=== PATIENT | female | born 1945 | race Caucasian/White ===

== ENCOUNTER 2019-03-31 06:00 | Outpatient (CLI) | payer MEDICARE, MEDICAID, SELFPAY ==
[2019-03-31 16:47] LABS: INR 2.18 (0.8-1.2)
== END 2019-03-31 06:01 | disposition home or self-care (01) ==
LOC: LAB 15:47
PROVIDERS: Family Provider Family Medicine; PCP Family Medicine; Visit Provider Family Medicine
DX: I48.91 Unspecified atrial fibrillation (principal)
CPT/HCPCS: 85610

== ENCOUNTER 2019-04-07 12:37 | Outpatient (CLI) | payer MEDICARE, MEDICAID, SELFPAY ==
[2019-04-07 13:02] LABS: INR 3.89 (0.8-1.2)
== END 2019-04-07 12:38 | disposition home or self-care (01) ==
LOC: LAB 12:39
PROVIDERS: Family Provider Family Medicine; PCP Family Medicine; Visit Provider Family Medicine
DX: I48.91 Unspecified atrial fibrillation (principal)
CPT/HCPCS: 85610

== ENCOUNTER 2019-04-22 06:00 | Outpatient (CLI) | payer MEDICARE, MEDICAID, SELFPAY ==
[2019-04-22 16:18] LABS: INR 2.49 (0.8-1.2)
== END 2019-04-22 06:01 | disposition home or self-care (01) ==
LOC: LAB 15:34
PROVIDERS: Family Provider Family Medicine; PCP Family Medicine; Visit Provider Family Medicine
DX: I48.91 Unspecified atrial fibrillation (principal)
CPT/HCPCS: 85610

== ENCOUNTER 2019-05-06 13:54 | Outpatient (CLI) | payer MEDICARE, SELFPAY ==
[2019-05-06 14:33] LABS: INR 1.85 (0.8-1.2)
== END 2019-05-06 13:55 | disposition home or self-care (01) ==
LOC: LAB 13:57
PROVIDERS: Family Provider Family Medicine; PCP Family Medicine; Visit Provider Family Medicine
DX: E03.9 Hypothyroidism, unspecified (principal); Z79.01 Long term (current) use of anticoagulants
CPT/HCPCS: 85610

== ENCOUNTER 2019-05-18 06:00 | Outpatient (CLI) | payer MEDICARE, SELFPAY ==
[2019-05-18 15:12] LABS: Alanine Aminotransferase 37 U/L (0-33); Albumin Level 3.9 g/dL (3.5-5.2); Alkaline Phosphatase 246 IU/L (35-105); Aspartate Amino Transferase 52 U/L (0-32); Globulin 3.8 g/dL (1.3-4.6); Thyroid Stimulating Hormone 4.03 uIU/mL (0.27-4.20); Total Bilirubin 0.5 mg/dL (0.15-1.2); Total Protein 7.7 g/dL (6.6-8.7)
[2019-05-18 19:22] LABS: Free T4 Free Thyroxine 1.84 ng/dL (0.82-1.77)
== END 2019-05-18 06:01 | disposition home or self-care (01) ==
LOC: LAB 14:05
PROVIDERS: Family Provider Family Medicine; PCP Family Medicine; Visit Provider Family Medicine
DX: I48.91 Unspecified atrial fibrillation (principal); E03.9 Hypothyroidism, unspecified; E78.5 Hyperlipidemia, unspecified; I27.20 Pulmonary hypertension, unspecified; Z95.2 Presence of prosthetic heart valve
CPT/HCPCS: 80076; 84439; 84443

== ENCOUNTER 2019-05-19 15:36 | Outpatient (REF) | payer MEDICARE, MEDICAID, SELFPAY ==
[2019-05-19 15:59] LABS: INR 2.35 (0.8-1.2)
[2019-05-19 16:39] LABS: Alanine Aminotransferase 39 U/L (0-33); Albumin Level 3.9 g/dL (3.5-5.2); Alkaline Phosphatase 250 IU/L (35-105); Aspartate Amino Transferase 48 U/L (0-32); Globulin 3.5 g/dL (1.3-4.6); Thyroid Stimulating Hormone 3.81 uIU/mL (0.27-4.20); Total Bilirubin 0.4 mg/dL (0.15-1.2); Total Protein 7.4 g/dL (6.6-8.7)
== END 2019-05-19 15:37 | disposition home or self-care (01) ==
LOC: LAB 15:36
PROVIDERS: Family Provider Family Medicine; PCP Family Medicine; Visit Provider Family Medicine
DX: I48.91 Unspecified atrial fibrillation (principal); D64.9 Anemia, unspecified; E11.9 Type 2 diabetes mellitus without complications; E03.9 Hypothyroidism, unspecified
CPT/HCPCS: 80076; 84443; 85610

== ENCOUNTER 2019-09-23 01:35 | Inpatient (IN) | payer MEDICARE, SELFPAY ==
[2019-09-23] VITALS (24 sets, daily range): BP systolic 110–166; BP diastolic 58–78; PULSE 58–82; RESP 16–20; TEMP 35.8–37.1; O2SAT 95–98; BMI 26.6
--- NOTE | 2019-09-23 01:41 | W.ED.GIBLEED ---
HPI - GI Bleed General: Chief complaint: GI Bleed Stated complaint: GI BLEED Time Seen by Provider: 09/23/19 01:36 Source: patient and EMS Mode of arrival: EMS Limitations: no limitations History of Present Illness: HPI Narrative: 74-year-old female presents here from [facility] with GI bleed. Patient was anemic over there and is on Coumadin currently. Patient had blood product started and has been normotensive. Patient come to ER for code screening. Patient's had no cough or fever. Denies any abdominal pain or vomiting. Associated symptoms: Denies chills, easy bruising, fever(s), headache(s) or rash Review of Systems Const: Denies: fever(s), chills, body aches or change in appetite Eyes: Denies: blurry vision or eye discomfort ENMT: Denies: throat pain or dental pain Card: Denies: chest pain Resp: Denies: dyspnea GI: Reports: hematochezia : Denies: dysuria Musc: Denies: neck pain or back pain Skin/Breast: Denies: rash Neuro: Denies: headache(s) Psych: Denies: depression Gallito/Lymph: Denies: easy bruising All/Imm: Denies: urticaria PFSH ED PFSH: Medical History (Updated 09/23/19 @ 01:58 by Iván Dougherty MD) Afib Chronic atrial fibrillation Congenital heart disease Diabetes GI bleed Moderate mitral regurgitation Moderate tricuspid regurgitation Pulmonary hypertension Type 2 diabetes mellitus Surgical History (Updated 09/23/19 @ 01:58 by Iván Dougherty MD) Hx of cataract surgery Hx of heart valve replacement with mechanical valve S/P atrial septal defect closure, surgical Family History Father Cancer Brother Cancer Grandmother CAD (coronary artery disease) Denies family history of Diabetes Clotting disorder Dementia Hyperlipidemia Psychiatric illness Chronic kidney disease (CKD) Suicide Anesthesia complication Bleeding disorder Family history of premature coronary artery disease Lung disease Hypertension Stroke Social History Smoking and tobacco status: former smoker Second hand smoke exposure: No Alcohol intake: never Physical Exam Const: COMMON NORMALS: no acute distress, patient oriented x3 and healthy appearing HENMT: COMMON NORMALS: normocephalic and atraumatic HEAD & SCALP: normocephalic and atraumatic Eye: COMMON NORMALS: Equal, round and reactive pupils present and EOMs intact bilaterally PUPIL: Yes Equal, round and reactive pupils present Neck/C-Spine: COMMON NORMALS: full ROM and supple Chest: COMMONS NORMALS: normal inspection of the chest and normal palpation of entire chest wall Resp: COMMON NORMALS: normal respiratory effort, No retractions, No use of accessory muscles and clear to auscultation bilaterally AUSCULTATION: clear to auscultation bilaterally Cardio: COMMON NORMALS: regular rate, regular rhythm and No murmurs present (Cardio) RATE: regular rate RHYTHM: regular rhythm GI: COMMON NORMALS: Normal to inspection, nondistended, normoactive bowel sounds present, Soft to palpation, non-tender and no masses PALPATION: Yes Soft to palpation Extremity: COMMON NORMALS: normal to inspection and full ROM Neuro: COMMON NORMALS: patient oriented x3, moves all extremities and no focal motor deficits Psych: COMMON NORMALS: mental status grossly normal, Normal thought process present and cooperative THOUGHT PROCESS: Normal thought process present Skin: COMMON NORMALS: no rashes or lesions noted and no wounds GENERAL SKIN EXAM: no rashes or lesions noted Course Vital Signs: Vital signs: Vital Signs Temperature 98.6 F 09/23/19 01:39 Pulse Rate 72 09/23/19 01:39 Respiratory Rate 16 09/23/19 01:39 Blood Pressure 146/58 09/23/19 01:39 Pulse Oximetry 96 09/23/19 01:39 MDM - GI Bleed MDM Narrative: Medical decision making narrative: Patient presents here with a GI bleed from [place]. Patient was given blood products there. Patient had a come by the ER for covid screening. Patient's had no fever or cough. Dr. Beltre is seeing patient in the ER and will admit. Discharge Plan Discharge Patient Disposition: Admitted As Inpatient Clinical Impression: GI bleed Qualifiers: GI bleed type/associated pathology: unspecified gastrointestinal hemorrhage type Qualified Code(s): K92.2 - Gastrointestinal hemorrhage, unspecified Condition: Stable Referrals: Cori Lane MD [Primary Care Provider] - Coding Level of Care Code ED It Applications Manager for [employer] Fwd Exam Comprehensive
--- NOTE | 2019-09-23 01:46 | P.HP_ITS ---
Providers/Chief Complaint Primary Care Provider: Cori Lane MD Chief Complaint: GI BLEED History of Present Illness Dawn Henao is a 74 year old female who has history of mechanical mitral valve, chronic anticoagulation with Coumadin, history of GI bleed with cauterization of AV malformation done in [place] last year coming in today for chief complaint of lethargy and fatigue. Patient's daughter is at the bedside who is endorsing that her complexion was extremely pale, she had no energy patient herself is endorsing fatigue and lethargy. Patient is endorsing that for last 2 to 3 weeks she has been noticing extremely dark stools. She is denying blood in urine, hematemesis, peptic ulcer disease. She went to [facility] for further evaluation where work-up showed hemoglobin 5.9. FOBT positive, she was given 1 unit of PRBC, they did not have FFP to reverse her INR which was 4.9. On arrival to the ED her systolic blood pressure was 130-140s mmHg, heart rate 60, she was asymptomatic, her complexion was better as per the daughter. We will update general surgery in the morning for endoscopy we will keep her n.p.o., after her blood transfusion we will keep her FFP for warfarin reversal. Review of Systems Const: Reports: chills, body aches, fatigue and malaise; Denies: fever(s) Eyes: Denies: change in vision ENMT: Denies: throat pain Card: Reports: lightheadedness and dyspnea on exertion; Denies: chest pain, palpitations or swelling of feet/ankles Resp: Denies: dyspnea GI: Reports: melena; Denies: abdominal pain, nausea or vomiting : Denies: flank pain or difficulty voiding Musc: Denies: neck pain Skin/Breast: Denies: lesions Neuro: Denies: headache(s) Psych: Denies: anxiety Endo: Denies: polyuria Gallito/Lymph: Denies: easy bruising All/Imm: Denies: urticaria Medications/Allergies Home Medications Medication Instructions Recorded Confirmed Last Taken Type isosorbide mononitrate 30 mg 30 mg PO QDAY #90 tab 03/31/19 Unknown Rx tablet,extended release 24 hr albuterol sulfate 90 mcg/actuation 2 inh INHALATION Q4H PRN 05/18/19 08/17/19 Unknown History breath activated powder inhaler aspirin 81 mg tablet,delayed 81 mg PO DAILY 05/18/19 08/17/19 Unknown History release furosemide 40 mg tablet 40 mg PO BID 05/18/19 08/17/19 Unknown History levothyroxine 50 mcg capsule 50 mcg PO DAILY 05/18/19 08/17/19 Unknown History metformin 500 mg tablet 500 mg PO BID tab 05/18/19 08/17/19 Unknown History pantoprazole 40 mg tablet,delayed 40 mg PO BID tab 05/18/19 08/17/19 Unknown History release potassium chloride 20 mEq 20 meq PO BID 05/18/19 08/17/19 Unknown History tablet,extended release pravastatin 40 mg tablet 40 mg PO DAILY 05/18/19 08/17/19 Unknown History warfarin 2 mg tablet 2 mg PO DAILY 05/18/19 08/17/19 Unknown History ferrous sulfate 325 mg (65 mg 325 mg PO BID tab 08/17/19 08/17/19 Unknown History iron) tablet amiodarone 200 mg tablet 400 mg PO DAILY #180 tab 09/07/19 Unknown Rx Allergies Allergy/AdvReac Type Severity Reaction Status Date / Time No Known Allergies Allergy Unknown Unverified 03/26/19 23:36 PFSH Acute PFSH: Medical History Afib Chronic atrial fibrillation Congenital heart disease Diabetes GI bleed Moderate mitral regurgitation Moderate tricuspid regurgitation Pulmonary hypertension Type 2 diabetes mellitus Surgical History Hx of cataract surgery Hx of heart valve replacement with mechanical valve S/P atrial septal defect closure, surgical Family History Father Cancer Brother Cancer Grandmother CAD (coronary artery disease) Denies family history of Diabetes Clotting disorder Dementia Hyperlipidemia Psychiatric illness Chronic kidney disease (CKD) Suicide Anesthesia complication Bleeding disorder Family history of premature coronary artery disease Lung disease Hypertension Stroke Social History Smoking and tobacco status: former smoker Second hand smoke exposure: No Alcohol intake: never Vitals/I&O/Wt Last Vital Signs Temp 98.6 F 09/23/19 01:39 Pulse 72 09/23/19 01:39 Resp 16 09/23/19 01:39 BP 146/58 09/23/19 01:39 Pulse Ox 96 09/23/19 01:39 Weight last 48 hrs Weight 77.111 kg Physical Exam Narrative: EXAM NARRATIVE: Very pleasant elderly female Currently asymptomatic with normal hemodynamics Blood bag at the bedside No tachycardia systolic blood pressure 130mmhg Loud murmur appreciated all over precordium, no active CHF decompensation Abdomen soft nontender nondistended bowel sounds sluggish Neurologically nonfocal exam No ischemia gangrene ulcer of lower extremities Pallor complexion EOMI, PERRLA Mild signs of dehydration A&P Assessment and plan (1) GI bleed: Status: Acute Qualifiers: GI bleed type/associated pathology: unspecified gastrointestinal hemorrhage type Qualified Code(s): K92.2 - Gastrointestinal hemorrhage, unspecified (2) Blood loss anemia: Status: Acute (3) Hx of heart valve replacement with mechanical valve: Status: Acute (4) Afib: Status: Acute Additional A&P Information Acute blood loss anemia due to upper GI bleed/melanotic stool Hemoglobin 5.9 with INR 4.9 Warfarin reversal with 1 units of FFP(would like to overcorrect INR considering underlying mechanical valve), vitamin K, currently patient is receiving first unit of blood transfusion Normal hemodynamics General surgery consulted Protonix 40 IV twice daily Mitral mechanical valve Supratherapeutic INR Patient is well aware of warfarin reversal effects and complications, this is a complex situation where she would require anticoagulation despite GI bleed, patient is well aware and wants to proceed with above-mentioned plan, plan discussed in front of her daughter Atrial fibrillation without RVR Currently heart rate ranging between 50 to 60s No active decompensation Coumadin on hold along amiodarone Hypothyroidism: Holding p.o. medications including levothyroxine for now Iron deficiency anemia: Holding iron supplementation Full code N.p.o. DVT prophylaxis SCDs currently supratherapeutic INR Attestations Medical Necessity Statement*: Anticipating stay in the hospital cross more than 2 midnights continued management for acute upper GI bleed and management of supratherapeutic INR Time Spent in Patient Care: (>than 50% of time spent in counselling and/or direct pt care on unit) . 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
[2019-09-23] MEDS: phytonadione (ADULT) 10 mg/mL Ampule 1 mL IV (04:23)
[2019-09-23] MEDS: FUROsemide 10 mg/mL SDV 2mL 20 MG IVP ×3 (04:23→18:31)
[2019-09-23 05:17] LABS: Basophils % 0.4 %; Eosinophils # 0.1 10^3/uL (0.0-0.8); Eosinophils % 1.9 %; Hematocrit 21.7 % (37.0-47.0); Hemoglobin 6.6 g/dL (11.5-15.3); Lymphocytes # 1.7 10^3/uL (0.8-4.8); Mean Corpuscular HGB Conc 30.4 g/dL (30.0-36.0); Mean Corpuscular Volume 98.6 fL (81-99); Mean Platelet Volume 11.4 fL (7.4-10.4); Monocytes # 0.7 10^3/uL (0.2-0.9); Monocytes % 9.1 %; Neutrophils # 4.74 10^3/uL (1.8-7.7); Neutrophils % 65.2 %; Nucleated Red Blood Cells % 0 %; Platelet Count 151 10^3/cmm (130-400); White Blood Count 7.3 10^3/uL (4.0-10.0)
[2019-09-23 05:32] LABS: Anion Gap 11.6 (5-19); Blood Urea Nitrogen 46 mg/dL (8-23); Calcium 8.6 mg/dL (8.5-10.5); Carbon Dioxide 26 mmol/L (22-29); Chloride 107 mmol/L (98-107); Glucose 191 mg/dL (65-115); Osmolality Calculated 295 mOsm/kg (285-295); Potassium 3.6 mmol/L (3.5-5.1); Sodium 141 mmol/L (136-145)
[2019-09-23 07:34] LABS: INR 3.93 (0.8-1.2)
--- NOTE | 2019-09-23 08:11 | PM.CONSULT ---
Providers/Reason For Consult Consulting Physican/Specialty*: Geoff Broussard MD Reason for Consult*: GI bleed Attending Physician: Vimal Lane MD Primary Care Provider: Cori Lane MD History of Present Illness History of Present Illness Chief Complaint: I have black stool and I am tired History of present illness: Ms Dawn Henao is a pleasant 74 year old female went to [facility] yesterday with generalized fatigue and was found to have black stool that was tested later on to have occult blood, patient had valve replacement in [place] last March.patient denies any hematemesis, peptic ulcer disease or hematuria.Her work-up showed hemoglobin 5.9. she was given 1 unit of PRBC, patient was transferred to [facility] for continuity of care. Patient reports that she had previous endoscopies and had a colonoscopy last year that was found to have polyps and another colonoscopy was done before her recent surgery for her heart valve and cauterization was done. General surgery was consulted for further evaluation and potential intervention Review of Systems General: Reports: 10 or more systems reviewed and unremarkable except in HPI and below Meds/Allergies Home Medications and Allergies Home Medications Medication Instructions Recorded Confirmed Last Taken Type isosorbide mononitrate 30 mg 30 mg PO QDAY #90 tab 03/31/19 Unknown Rx tablet,extended release 24 hr albuterol sulfate 90 mcg/actuation 2 inh INHALATION Q4H PRN 05/18/19 08/17/19 Unknown History breath activated powder inhaler aspirin 81 mg tablet,delayed 81 mg PO DAILY 05/18/19 08/17/19 Unknown History release furosemide 40 mg tablet 40 mg PO BID 05/18/19 08/17/19 Unknown History levothyroxine 50 mcg capsule 50 mcg PO DAILY 05/18/19 08/17/19 Unknown History metformin 500 mg tablet 500 mg PO BID tab 05/18/19 08/17/19 Unknown History pantoprazole 40 mg tablet,delayed 40 mg PO BID tab 05/18/19 08/17/19 Unknown History release potassium chloride 20 mEq 20 meq PO BID 05/18/19 08/17/19 Unknown History tablet,extended release pravastatin 40 mg tablet 40 mg PO DAILY 05/18/19 08/17/19 Unknown History warfarin 2 mg tablet 2 mg PO DAILY 05/18/19 08/17/19 Unknown History ferrous sulfate 325 mg (65 mg 325 mg PO BID tab 08/17/19 08/17/19 Unknown History iron) tablet amiodarone 200 mg tablet 400 mg PO DAILY #180 tab 09/07/19 Unknown Rx Allergies Allergy/AdvReac Type Severity Reaction Status Date / Time No Known Allergies Allergy Unknown Unverified 09/23/19 08:19 PFSH Acute PFSH: Medical History Afib Chronic atrial fibrillation Congenital heart disease Diabetes GI bleed Moderate mitral regurgitation Moderate tricuspid regurgitation Pulmonary hypertension Type 2 diabetes mellitus Surgical History Hx of cataract surgery Hx of heart valve replacement with mechanical valve S/P atrial septal defect closure, surgical Family History Father Cancer Brother Cancer Grandmother CAD (coronary artery disease) Denies family history of Diabetes Clotting disorder Dementia Hyperlipidemia Psychiatric illness Chronic kidney disease (CKD) Suicide Anesthesia complication Bleeding disorder Family history of premature coronary artery disease Lung disease Hypertension Stroke Social History Smoking and tobacco status: former smoker Second hand smoke exposure: No Alcohol intake: never Vitals/I&O/Wt Last Vital Signs Temp 97.9 F 09/23/19 07:52 Pulse 69 09/23/19 07:52 Resp 16 09/23/19 07:52 BP 166/71 09/23/19 07:52 Pulse Ox 96 09/23/19 07:52 09/22/19 09/23/19 09/23/19 22:59 06:59 14:59 Intake Total 0 / 0 0 / 0 Balance 0 / 0 0 / 0 Weight last 48 hrs Weight 170 lb Physical Exam Narrative: EXAM NARRATIVE: Patient is conscious alert oriented X3 BMI 27 Head and neck examination PERRLA no masses no cervical lymphadenopathy no jaundice Cardiac examination audible precordial murmur Chest is clear bilateral,abscence of Rhonchi or wheezes,no surgical emphysema Abdomen nontender nondistended soft no organomegaly guarding or rigidity/no signs of peritonitis In the presence of female clip on sunglasses assembler Lucila patient's digital rectal examination was found to have black stool but no masses and normal sphincteric tone. A&P Assessment and plan (1) GI bleed: Plan of care; After history and physical examination and reviewing the chart, from surgical standpoint of view my recommendation is to perform a diagnostic esophagogastroduodenoscopy with possible biopsy in the GI lab after resuscitation and correction of coagulopathy, yet if patient had history of AV malformation if such a pathology do exist in the small bowel she would require diagnostic enteroscopy possible capsule endoscopy to locate the site of the potential bleeding and if the above is negative a repeat colonoscopy would be potentially warranted. Patient is at higher risk of normalizing her INR and thus any invasive procedure would be done at an INR around 2.5 which would carry high risk of bleeding still. I discussed with the patient in details the risks,benefits,alternatives and indications.The risk of aspiration, bleeding, soft tissue injury, perforation of the stomach/esophagus and other potential concomitant complications were explained to the patient in details. Rationale was carefully and clearly discussed with the patient. All questions have been answered and all concerns have been addressed to patient's satisfaction. Continue coordinating with Dr. Lane with regard patient's care. Thank you for consulting general surgery to participate taking care erage Status: Acute Qualifiers: GI bleed type/associated pathology: unspecified gastrointestinal hemorrhage type Qualified Code(s): K92.2 - Gastrointestinal hemorrhage, unspecified Consult Attestations Medical Necessity Statement: Per hospitalist Time Spent in Patient Care: (>than 50% of time spent in counselling and/or direct pt care on unit). 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
[2019-09-23] MEDS: pantoprazole 40 mg SDV IVP ×2 (09:03→18:23)
[2019-09-23] MEDS: diphenhydrAMINE 50 mg/mL SDV 1mL 25 MG IVP ×2 (09:29→11:28)
--- NOTE | 2019-09-23 10:39 | PC.CHAP ---
Pastoral Care Encounter/Spiritual Assessment Type of Contact [] Declined animal nutritionist visit [] Patient/Family/Request visit [] Outpatient visit [] Follow-up visit [] Physician referral [] Code/Alert [x] Routine visit [] Staff referral [] Actively dying [] Patient sleeping [] Family support [] [] Out of room [] Palliative care [] [] Receiving care in room [] Pre-surgical visit [] Trauma [] Long length of stay [] ICU visit [] Other: Relational/Emotional Strength [x] Patient feels connected with others/family/visitors/staff [] Distress [] Loneliness/isolation [] Abandonment Spirituality of Patient [x] Person of Reyna [x] Attends Jainism of their Reyna [x] Believes in Prayer [x] Reads Bible or Hinduism materials [] There are Spiritual issues to be addressed Primary Substance Abuse Counselor Interventions [x] Prayer [x] Active listening [x] Non-anxious presence [x] Spiritual/emotional support [] Crisis/trauma care [] Spiritual counseling [] Bereavement support [] Provided bereavement packet [] Provided Bible/devotional materials [] Provided toy/stuffed animal, coloring book to patient or family member [] Provided Communion [] Anointing/Lapel [] Salvation [x] Completed spiritual assessment [] Other: Impact on Illness or Injury [] Angry [] Fearful [] Anxious [] Often cries [] Exhaustion [] Unable to work [] Unable to attend buddhism [] Unable to walk/stand [] Unable to read [] Unable to drive [] Unable to eat/drink [] Unable to sleep [] Unable to be with family [] Patient intubated [x] Other: Summary Patient professed her reyna and submission to and in the [facility]. Time spent with patient 10 minutes
[2019-09-23 10:45] LABS: Basophils % 0.4 %; Eosinophils # 0.1 10^3/uL (0.0-0.8); Eosinophils % 1.8 %; Lymphocytes # 1.5 10^3/uL (0.8-4.8); Lymphocytes % 20.2 %; Mean Corpuscular HGB Conc 30.5 g/dL (30.0-36.0); Mean Corpuscular Hemoglobin 30.3 pg (28.0-34.0); Mean Corpuscular Volume 99.5 fL (81-99); Mean Platelet Volume 11.3 fL (7.4-10.4); Monocytes # 0.7 10^3/uL (0.2-0.9); Monocytes % 9.3 %; Neutrophils # 5.17 10^3/uL (1.8-7.7); Neutrophils % 67.8 %; Nucleated Red Blood Cells % 0 %; Platelet Count 146 10^3/cmm (130-400); Red Blood Count 2.11 10^6/uL (4.1-5.3); Red Cell Distribution Width 19.4 % (12.1-15.1); White Blood Count 7.6 10^3/uL (4.0-10.0)
[2019-09-23 10:57] LABS: Hemoglobin 6.4 g/dL (11.5-15.3)
[2019-09-23] MEDS: acetaminophen 325 mg Tablet 650 MG PO (11:27)
--- NOTE | 2019-09-23 11:44 | P.PN_ITS ---
Documented by User: Della BaoTRENT STDMARIBELL 09/23/19 14:03 Subjective Subjective: Interval history: Patient was very pleasant and cooperative. She reports some dyspnea on exertion and is still fatigued. Patient reports recent history of dark stools, but said she assumed it was from her iron supplementation. Patient reports one incident of hematochezia, which was this morning shortly after a rectal exam. Denies any incidence of hematemesis. Denies nausea or vomiting. Patient reports previous colonoscopy showed polyps. Medications: Reviewed: Yes Vitals/I&O/Wt Last Vital Signs Temp 98.6 F 09/23/19 11:34 Pulse 66 09/23/19 11:34 Resp 18 09/23/19 11:34 BP 163/67 09/23/19 11:34 Pulse Ox 96 09/23/19 11:34 09/22/19 09/23/19 09/23/19 22:59 06:59 14:59 Intake Total 0 / 0 186 / 186 Output Total 100 / 100 Balance 0 / 0 86 / 86 Weight last 48 hrs Weight 170 lb Physical Exam Narrative: EXAM NARRATIVE: General: Patient is alert, and oriented x3. Pale Cardio: Regular rate and rhythm with a 2/6 systolic murmur heard best in the left mid sternal border Respiratory: Clear to auscultation bilaterally Abdomen: Soft nontender with positive bowel sounds Extremity: No cyanosis clubbing or edema Data : 09/23/19 10:39 09/23/19 04:50 Other Labs: A&P Assessment and plan (1) Blood loss anemia: Recent history of melena, no episodes of hematochezia other than as reported in HPI. We will give 2 units of PRBC today with administration of Tylenol and benadryl prior to transfusion due to reaction with FFP infusion. Status: Acute (2) GI bleed: Previous history of cauterized AV malformations. INR remains supratherapeutic at 3.9 and patient received 1 unit of FFP Shortly after FFP infusion, patient reported pruritis bilaterally through hands and wrist, as well as a rash on her right side. This resolved upon administration of bendryl. General surgery was consulted and Dr. hPelps recommends diagnostic EGD upon stabilization of INR and anemia. She will be taking off anticoagulation indefinitely currently, as she does not have a mechanical heart valve. Her tricuspid and mitral valve were repaired but this does not require anticoagulation. She was on anticoagulation for atrial fibrillation. Recommend continued evaluation of anemia and coagulation with blood product supplementation as needed. Status: Acute Qualifiers: GI bleed type/associated pathology: unspecified gastrointestinal hemorrhage type Qualified Code(s): K92.2 - Gastrointestinal hemorrhage, unspecified (3) Afib: Note from [facility] 03/17 reports bilateral atrial ablation Recommend telemetry monitoring, though HR has been stable in 50-70s Coumadin on hold. Resume amiodarone today Start telemetry Status: Acute Additional A&P Information History of mitral valve and tricuspid valve repair. She does not need anticoagulation for this. Type 2 diabetes. Start sliding scale insulin Hyperlipidemia, continue statin. Hypothyroidism, continue thyroid hormone. 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
[2019-09-23] MEDS: sodium chloride 0.9% (100 ml) 100 ML 50 ML (11:56)
[2019-09-23] MEDS: sodium chloride 0.9% (100 ml) 100 ML 125 ML (16:55)
[2019-09-23 17:34] LABS: Glucose Point of Care 145 mg/dL (70-110)
[2019-09-23] MEDS: amiodarone 200 mg Tablet PO (17:52)
[2019-09-23 19:23] LABS: INR 1.21 (0.8-1.2)
[2019-09-23 19:34] LABS: Hematocrit 26.7 % (37.0-47.0); Hemoglobin 8.3 g/dL (11.5-15.3)
[2019-09-23 21:10] LABS: Glucose Point of Care 264 mg/dL (70-110)
[2019-09-23 23:14] LABS: Glucose Point of Care 60 mg/dL (70-110)
--- NOTE | 2019-09-23 23:15 | PC.NURSE ---
HYPOGLYCEMIA Pt called nurse stating she did not feel well. No specific c/o pain. Diaphoretic and pale. Oriented but drowsy. BS check was 60. Juice given and able to drink well. Started feeling better as soon as drinking juice. BP 159/63 HR82 O2 sat 97%. Notifying Dr since pt is on clear liquid diet and will be NPO after midnight
[2019-09-23 23:33] LABS: Glucose Point of Care 93 mg/dL (70-110)
[2019-09-23] MEDS: dextrose 5%-sod chloride 0.9% 1,000 ML 30 ML IV (23:56)
[2019-09-23 23:58] LABS: Glucose Point of Care 167 mg/dL (70-110)
[2019-09-24] VITALS (11 sets, daily range): BP systolic 115–155; BP diastolic 46–68; PULSE 45–66; RESP 16–20; TEMP 36.4–36.7; O2SAT 93–99
[2019-09-24 01:30] LABS: Glucose Point of Care 170 mg/dL (70-110)
[2019-09-24 04:37] LABS: Basophils % 0.5 %; Eosinophils # 0.2 10^3/uL (0.0-0.8); Eosinophils % 3.9 %; Hematocrit 25.2 % (37.0-47.0); Hemoglobin 7.8 g/dL (11.5-15.3); Lymphocytes # 1.1 10^3/uL (0.8-4.8); Lymphocytes % 17.3 %; Mean Corpuscular Hemoglobin 29.3 pg (28.0-34.0); Mean Corpuscular Volume 94.7 fL (81-99); Mean Platelet Volume 11.2 fL (7.4-10.4); Monocytes # 0.5 10^3/uL (0.2-0.9); Monocytes % 7.5 %; Neutrophils # 4.32 10^3/uL (1.8-7.7); Neutrophils % 70.5 %; Nucleated Red Blood Cells % 0 %; Platelet Count 116 10^3/cmm (130-400); Red Blood Count 2.66 10^6/uL (4.1-5.3); Red Cell Distribution Width 23.1 % (12.1-15.1); White Blood Count 6.1 10^3/uL (4.0-10.0)
[2019-09-24 04:45] LABS: INR 1.21 (0.8-1.2)
[2019-09-24 04:52] LABS: Alanine Aminotransferase 19 U/L (0-33); Albumin Level 3.3 g/dL (3.5-5.2); Alkaline Phosphatase 71 IU/L (35-105); Anion Gap 12.3 (5-19); Aspartate Amino Transferase 27 U/L (0-32); Blood Urea Nitrogen 23 mg/dL (8-23); Calcium 8.1 mg/dL (8.5-10.5); Carbon Dioxide 25 mmol/L (22-29); Chloride 107 mmol/L (98-107); Creatinine Clr Calc Pharmacy 66.0387; Glucose 194 mg/dL (65-115); Osmolality Calculated 294 mOsm/kg (285-295); Potassium 3.3 mmol/L (3.5-5.1); Sodium 141 mmol/L (136-145); Total Bilirubin 0.8 mg/dL (0.15-1.2); Total Protein 5.3 g/dL (6.6-8.7)
--- NOTE | 2019-09-24 05:59 | PC.NURSE ---
SHIFT SUMMARY No problems since hypoglycemic episode. NPO after midnight and has received D5NS at 30ml/hr. Up to BSC with assist for voidings. No signs any GI bleeding. Has denied any abd pain or tenderness. Says she just feels weak
--- NOTE | 2019-09-24 06:04 | P.PN_ITS ---
Subjective Subjective: Interval history: Patient overall feels better and she received so far 3 units of packed RBCs including the one she received at the outside facility. Per my clinical examination yesterday did not appreciate the clicking sound of an artificial valve, and the patient turned out to have a repair of her tricuspid and mitral valves from outside records and her chronic anticoagulation was for her chronic atrial fibrillation. No reported bleeding per rectum overnight or hematemesis Vitals/I&O/Wt Last Vital Signs Temp 97.8 F 09/24/19 04:14 Pulse 66 09/24/19 04:14 Resp 17 09/24/19 04:14 BP 127/68 09/24/19 04:14 Pulse Ox 96 09/24/19 04:14 09/23/19 09/23/19 09/24/19 14:59 22:59 06:59 Intake Total 186 / 186 0 / 186 600 / 786 Output Total 100 / 100 450 / 550 Balance 86 / 86 0 / 86 150 / 236 Weight last 48 hrs Weight 170 lb Physical Exam Narrative: EXAM NARRATIVE: Patient is conscious alert oriented X3 BMI 27 Head and neck examination PERRLA no masses no cervical lymphadenopathy no jaundice Abdomen nontender nondistended soft no organomegaly guarding or rigidity/no s igns of peritonitis Data : 09/24/19 04:00 09/24/19 04:00 A&P Assessment and plan (1) GI bleed: Plan of care; After thorough history and physical examination and reviewing the chart, plan to perform a diagnostic esophagogastroduodenoscopy with possible biopsy. I discussed with the patient in detail the risk,benefits,alternatives and indications.The risk of aspiration, bleeding, soft tissue injury, perforation of the stomach/esophagus and other potential concomitant complications were explained to the patient in details.The patient understood this well and did agree to proceed. Rationale was carefully and clearly discussed with the patient.Appropriate informed consent have been reviewed and signed All questions have been answered and all concerns have been addressed to patient's satisfaction. Continue coordinating with Dr. Lane with regard patient's care. Thank you for consulting general surgery to participate taking care erage Status: Acute Qualifiers: GI bleed type/associated pathology: unspecified gastrointestinal hemorr rishabh type Qualified Code(s): K92.2 - Gastrointestinal hemorrhage, unspecified Attestations Medical Necessity Statement*: Per Hospitalist's service Time Spent in Patient Care: (>than 50% of time spent in counselling and/or direct pt care on unit) . Coding Level of Care Code Acute Pay Per Click Strategist for Chg Fwd Diagnoses GI bleed K92.2 GI bleed type/associated pathology: unspecified gastrointestinal hemorrhage type
[2019-09-24 06:47] LABS: Glucose Point of Care 176 mg/dL (70-110)
--- NOTE | 2019-09-24 08:12 | P.PN_ITS ---
Documented by User: TRENT Cat [email or web address] 09/24/19 09:51 Subjective Subjective: Interval history: Patient was pleasant and reports feeling much better today. Patient reports one episode of symptomatic hypoglycemia overnight, which was corrected. Patient denies any bowel movements overnight and denies shortness of breath. Medications: Reviewed: Yes Vitals/I&O/Wt Last Vital Signs Temp 97.9 F 09/24/19 07:29 Pulse 53 L 09/24/19 07:29 Resp 16 09/24/19 07:29 BP 126/64 09/24/19 07:29 Pulse Ox 95 09/24/19 07:29 09/23/19 09/24/19 09/24/19 22:59 06:59 14:59 Intake Total 0 / 186 600 / 786 Output Total 450 / 550 Balance 0 / 86 150 / 236 Weight last 48 hrs Weight 170 lb Physical Exam Narrative: EXAM NARRATIVE: General: Patient is awake and oriented X3. Cardio: Regular rate and rhythm with grade 2/6 systolic murmur loudest over left sternal border. Lungs: Lungs clear to auscultation bilaterally. Extremities: No cyanosis, clubbing, or edema noted in lower extremities. Abdomen: Soft with active bowel sounds. No tenderness or guarding. Data : 09/24/19 04:00 09/24/19 04:00 A&P Assessment and plan (1) Blood loss anemia: History of melena. Given 3 units PRBC in total yesterday and hgb is now 7.8 Status: Acute (2) GI bleed: Previous history of cauterized AV malformations. INR now 1.2. Continue PPI. Planned EGD today. She will be taking off anticoagulation indefinitely currently, as she does not have a mechanical heart valve and her risk for GI bleed recurrence is high. Her tricuspid and mitral valve were repaired but this does not require anticoagulation. She was on anticoagulation for atrial fibrillation. Recommend continued evaluation of anemia and coagulation with blood product supplementation as needed. Status: Acute Qualifiers: GI bleed type/associated pathology: unspecified gastrointestinal hemorrhage type Qualified Code(s): K92.2 - Gastrointestinal hemorrhage, unspecified (3) Afib: Note from [facility] 03/17 reports bilateral atrial ablation Continue telemetry monitoring, though HR has been stable in 50-70s. Continue amiodarone. Status: Acute Additional A&P Information History of mitral valve and tricuspid valve repair. She does not need anticoagulation for this. Type 2 diabetes. Continue sliding scale insulin. Hyperlipidemia, continue statin. Hypothyroidism, continue thyroid hormone. Hypokalemic, supplemented 40mg KCl. Full code SCDs for DVT prophylaxis Patient is n.p.o. with meds and plan to reevalute following EGD. Attestations Medical Necessity Statement*: Needs continued close monitoring secondary to GI bleeding with severe anemia Coding Level of Care Code Acute Project Engineering Director for Chg Fwd Diagnoses Blood loss anemia D50.0 GI bleed K92.2 GI bleed type/associated pathology: unspecified gastrointestinal hemorrhage type Afib I48.91 Documented by User: Vimal Lane MD 09/24/19 09:52 Data : 09/24/19 04:00 09/24/19 04:00 Coding Level of Care Code Acute Project Engineering Director for Chg Fwd Diagnoses Blood loss anemia D50.0 GI bleed K92.2 GI bleed type/associated pathology: unspecified gastrointestinal hemorrhage type Afib I48.91
[2019-09-24] MEDS: potassium chloride ER 10 mEq Tablet 40 MEQ PO (08:51)
[2019-09-24] MEDS: levothyroxine 50 mcg Tablet PO (08:51)
[2019-09-24] MEDS: pantoprazole 40 mg SDV IVP (08:52)
--- NOTE | 2019-09-24 09:59 | PC.CHAP ---
Pastoral Care Encounter/Spiritual Assessment Type of Contact [] Declined cloth shrinker visit [] Patient/Family/Request visit [] Outpatient visit [] Follow-up visit [] Physician referral [] Code/Alert [x] Routine visit [] Staff referral [] Actively dying [] Patient sleeping [] Family support [] [] Out of room [] Palliative care [] [] Receiving care in room [] Pre-surgical visit [] Trauma [] Long length of stay [] ICU visit [] Other: Relational/Emotional Strength [] Patient feels connected with others/family/visitors/staff [] Distress [] Loneliness/isolation [] Abandonment Spirituality of Patient [] Person of Reyna [] Attends Scientology of their Reyna [] Believes in Prayer [] Reads Bible or Zoroastrianism materials [] There are Spiritual issues to be addressed 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 Interventions [x] Prayer [x] Active listening [x] Non-anxious presence [x] Spiritual/emotional support [] Crisis/trauma care [] Spiritual counseling [] Bereavement support [] Provided bereavement packet [] Provided Bible/devotional materials [] Provided toy/stuffed animal, coloring book to patient or family member [] Provided Communion [] Anointing/[place] [] Salvation [x] Completed spiritual assessment [] Other: Impact on Illness or Injury [] Angry [] Fearful [] Anxious [] Often cries [] Exhaustion [] Unable to work [] Unable to attend congregation [] Unable to walk/stand [] Unable to read [] Unable to drive [] Unable to eat/drink [] Unable to sleep [] Unable to be with family [] Patient intubated [] Other: Summary Patient resting well Time spent with patient 5 min
--- NOTE | 2019-09-24 10:27 | PC.NURSE ---
PT HEART RATE WAS 53 THIS AM, PT HAD AMIODARONE 200MG PO DUE AT 0900, THIS NURSE CHECKED WITH DR MEDINA ABOUT DOSE, DUE TO HEART RATE, PHYSICIAN STATED HOLD DOSE TODAY, I WILL REDUCE DOSE. AM DOSE HELD, PENDING CHANGE IN MEDICATION DOSE.
[2019-09-24 10:52] LABS: Glucose Point of Care 176 mg/dL (70-110)
[2019-09-24] MEDS: sodium chloride 0.9% 1,000 ML 30 ML IV (11:17)
--- NOTE | 2019-09-24 11:19 | ANES.PREANE2 ---
Pre-Anesthetic Assessment Pre-Anesthetic Assessment: Height/Weight: Height 1.7 m Weight 77.111 kg Temp Pulse Resp BP Pulse Ox 98.1 F 55 L 18 150/63 95 09/24/19 11:10 09/24/19 11:10 09/24/19 11:10 09/24/19 11:10 09/24/19 11:10 Preop Diagnosis: GI bleed Proposed Procedure: Operation Date: 09/24/19 11:30 Proposed Procedures p EGD(Not Applicable) - Geoff Broussard MD Familial anesthetic complications: none Last intake: Intake Last Liquid Date 09/23/19 Last Liquid Time 11:59 Last Solid Date 09/22/19 Last Solid Time 12:00 Social: Social History: No alcohol and No tobacco Exam: Pre-Anes Outpt Exam: alert, oriented x 3, clear to auscultation bilaterally and regular rate & rhythm Airway: Cervical ROM: WNL MP: 3 Dentition: Chipped and Other Pulmonary: Comments: has an inhaler for when she gets short of breath, unable to state any underlying condition pulmonary HTN CV/HEM: CV/HEM: Afib and HTN Comments: s/p AVR and MVR in march - stopped anticoagulation now d/t bleeding GI: GI: GERD Metabolic: Metabolic: DM, Hyperlipidemia and Thyroid Anesthetic Plan: ASA status: 3 Anesthesia: MAC Risk of > 500 ml blood loss (7ml/kg in children): No Meds/Allergies Current Medications: Current Medications Generic Name Dose Route Start Last Admin Trade Name Freq PRN Reason Stop Dose Admin Dextrose/Sodium Ch loride 1,000 mls @ 30 ml s/hr 09/23/19 23:45 09/23/19 23:56 Dextrose 5%-Sod Chloride 0.9% IV 30 mls/hr .Q24H SONDRA Administration Sodium Chloride 1,000 mls @ 30 ml s/hr 09/24/19 11:00 09/24/19 11:17 Sodium Chloride 0.9% IV 09/25/19 10:59 30 mls/hr .Q24H SONDRA Administration Insulin Aspart 0 unit 09/23/19 18:00 09/24/19 07:18 Novolog SUBCUT Not Given WM&BEDTIME SONDRA Protocol Levothyroxine Sodi um 50 mcg 09/24/19 09:00 09/24/19 08:51 Synthroid PO 50 mcg DAILY SONDRA Administration Pantoprazole [place]odiu m 40 mg 09/23/19 09:00 09/24/19 08:52 Protonix IVP 40 mg BID SONDRA Administration PFSH Anesthesia PFSH: Medical History Afib Chronic atrial fibrillation Congenital heart disease Diabetes GI bleed Moderate mitral regurgitation Moderate tricuspid regurgitation Pulmonary hypertension Type 2 diabetes mellitus Surgical History Hx of cataract surgery Hx of heart valve replacement with mechanical valve S/P atrial septal defect closure, surgical Family History Father Cancer Brother Cancer Grandmother CAD (coronary artery disease) Denies family history of Diabetes Clotting disorder Dementia Hyperlipidemia Psychiatric illness Chronic kidney disease (CKD) Suicide Anesthesia complication Bleeding disorder Family history of premature coronary artery disease Lung disease Hypertension Stroke Social History Smoking and tobacco status: former smoker Second hand smoke exposure: No Alcohol intake: never Data Anesthesia CBC & Chem 7: 09/24/19 04:00 09/24/19 04:00 Other Labs: Laboratory Results - last 48 hr 09/23/19 09/23/19 09/23/19 04:50 04:50 04:50 WBC 7.3 RBC 2.20 L Hgb 6.6 L Hct 21.7 L MCV 98.6 MCH 30.0 MCHC 30.4 RDW 19.0 H Plt Count 151 MPV 11.4 H Neut % (Auto) 65.2 Lymph % (Auto) 23.0 [place] % (Auto) 9.1 Eos % (Auto) 1.9 Baso % (Auto) 0.4 Neut # (Auto) 4.74 Lymph # (Auto) 1.7 [place] # (Auto) 0.7 Eos # (Auto) 0.1 Baso # (Auto) 0.0 Nucleated RBC % (auto) 0 Nucleated RBCs # 0.0 PT INR Sodium 141 Potassium 3.6 Chloride 107 Carbon Dioxide 26 Anion Gap 11.6 BUN 46 H Creatinine 0.9 GFR Calculation Not Reportable Glucose 191 H POC Glucose Calculated Osmolality 295 Calcium 8.6 Total Bilirubin AST ALT Alkaline Phosphatase Total Protein Albumin Globulin Blood Type O Positive Rho(D) Type Positive Antibody Screen Negative Crossmatch See Detail 09/23/19 09/23/19 09/23/19 04:50 10:39 17:30 WBC 7.6 RBC 2.11 L Hgb 6.4 L* Hct 21.0 L MCV 99.5 H MCH 30.3 MCHC 30.5 RDW 19.4 H Plt Count 146 MPV 11.3 H Neut % (Auto) 67.8 Lymph % (Auto) 20.2 [place] % (Auto) 9.3 Eos % (Auto) 1.8 Baso % (Auto) 0.4 Neut # (Auto) 5.17 Lymph # (Auto) 1.5 [place] # (Auto) 0.7 Eos # (Auto) 0.1 Baso # (Auto) 0.0 Nucleated RBC % (auto) 0 Nucleated RBCs # 0.0 PT 40.00 H INR 3.93 H Sodium Potassium Chloride Carbon Dioxide Anion Gap BUN Creatinine GFR Calculation Glucose POC Glucose 145 Calculated Osmolality Calcium Total Bilirubin AST ALT Alkaline Phosphatase Total Protein Albumin Globulin Blood Type Rho(D) Type Antibody Screen Crossmatch 09/23/19 09/23/19 09/23/19 19:05 19:05 20:52 WBC RBC Hgb 8.3 L Hct 26.7 L MCV MCH MCHC RDW Plt Count MPV Neut % (Auto) Lymph % (Auto) [place] % (Auto) Eos % (Auto) Baso % (Auto) Neut # (Auto) Lymph # (Auto) [place] # (Auto) Eos # (Auto) Baso # (Auto) Nucleated RBC % (auto) Nucleated RBCs # PT 15.70 H D INR 1.21 H Sodium Potassium Chloride Carbon Dioxide Anion Gap BUN Creatinine GFR Calculation Glucose POC Glucose 264 Calculated Osmolality Calcium Total Bilirubin AST ALT Alkaline Phosphatase Total Protein Albumin Globulin Blood Type Rho(D) Type Antibody Screen Crossmatch 09/23/19 09/23/19 09/23/19 23:11 23:30 23:54 WBC RBC Hgb Hct MCV MCH MCHC RDW Plt Count MPV Neut % (Auto) Lymph % (Auto) [place] % (Auto) Eos % (Auto) Baso % (Auto) Neut # (Auto) Lymph # (Auto) [place] # (Auto) Eos # (Auto) Baso # (Auto) Nucleated RBC % (auto) Nucleated RBCs # PT INR Sodium Potassium Chloride Carbon Dioxide Anion Gap BUN Creatinine GFR Calculation Glucose POC Glucose 60 93 167 Calculated Osmolality Calcium Total Bilirubin AST ALT Alkaline Phosphatase Total Protein Albumin Globulin Blood Type Rho(D) Type Antibody Screen Crossmatch 09/24/19 09/24/19 09/24/19 01:17 04:00 04:00 WBC 6.1 RBC 2.66 L Hgb 7.8 L Hct 25.2 L MCV 94.7 MCH 29.3 MCHC 31.0 RDW 23.1 H Plt Count 116 L MPV 11.2 H Neut % (Auto) 70.5 Lymph % (Auto) 17.3 [place] % (Auto) 7.5 Eos % (Auto) 3.9 Baso % (Auto) 0.5 Neut # (Auto) 4.32 Lymph # (Auto) 1.1 [place] # (Auto) 0.5 Eos # (Auto) 0.2 Baso # (Auto) 0.0 Nucleated RBC % (auto) 0 Nucleated RBCs # 0.0 PT INR Sodium 141 Potassium 3.3 L Chloride 107 Carbon Dioxide 25 Anion Gap 12.3 BUN 23 Creatinine 0.8 GFR Calculation Not Reportable Glucose 194 H POC Glucose 170 Calculated Osmolality 294 Calcium 8.1 L Total Bilirubin 0.8 AST 27 ALT 19 Alkaline Phosphatase 71 Total Protein 5.3 L Albumin 3.3 L Globulin 2.0 Blood Type Rho(D) Type Antibody Screen Crossmatch 09/24/19 09/24/19 09/24/19 04:00 06:42 10:44 WBC RBC Hgb Hct MCV MCH MCHC RDW Plt Count MPV Neut % (Auto) Lymph % (Auto) [place] % (Auto) Eos % (Auto) Baso % (Auto) Neut # (Auto) Lymph # (Auto) [place] # (Auto) Eos # (Auto) Baso # (Auto) Nucleated RBC % (auto) Nucleated RBCs # PT 15.70 H INR 1.21 H Sodium Potassium Chloride Carbon Dioxide Anion Gap BUN Creatinine GFR Calculation Glucose POC Glucose 176 176 Calculated Osmolality Calcium Total Bilirubin AST ALT Alkaline Phosphatase Total Protein Albumin Globulin Blood Type Rho(D) Type Antibody Screen Crossmatch Cardiac Studies: No Data to Display
[2019-09-24 14:07] LABS: Hematocrit 27.6 % (37.0-47.0); Hemoglobin 8.2 g/dL (11.5-15.3)
--- NOTE | 2019-09-24 16:06 | PC.NURSE ---
Daughter zoraida called, she is not on the list to speak to, the pt gave me permission to speak to Zoraida about hospital stay.
[2019-09-24 17:27] LABS: Glucose Point of Care 179 mg/dL (70-110)
--- NOTE | 2019-09-24 19:48 | PC.NURSE ---
pt refused scd stated she could stand to wear them. will try again to get her to wear.
[2019-09-24 21:14] LABS: Glucose Point of Care 155 mg/dL (70-110)
[2019-09-25] MEDS: sodium chloride 0.9% 1,000 ML 30 ML IV (03:47)
[2019-09-25 03:50] VITALS: BP 117/66; PULSE 54; RESP 17; TEMP 36.5; O2SAT 93
[2019-09-25 06:00] LABS: Basophils % 0.4 %; Eosinophils # 0.4 10^3/uL (0.0-0.8); Eosinophils % 6.9 %; Hematocrit 26.3 % (37.0-47.0); Hemoglobin 7.9 g/dL (11.5-15.3); Lymphocytes # 1.1 10^3/uL (0.8-4.8); Lymphocytes % 19.5 %; Mean Corpuscular Hemoglobin 28.8 pg (28.0-34.0); Mean Platelet Volume 10.6 fL (7.4-10.4); Monocytes # 0.5 10^3/uL (0.2-0.9); Monocytes % 9.3 %; Neutrophils # 3.42 10^3/uL (1.8-7.7); Neutrophils % 63.5 %; Nucleated Red Blood Cells % 0 %; Platelet Count 120 10^3/cmm (130-400); Red Blood Count 2.74 10^6/uL (4.1-5.3); Red Cell Distribution Width 22.2 % (12.1-15.1); White Blood Count 5.4 10^3/uL (4.0-10.0)
[2019-09-25 06:14] LABS: INR 1.07 (0.8-1.2)
[2019-09-25 06:20] LABS: Anion Gap 11.8 (5-19); Blood Urea Nitrogen 13 mg/dL (8-23); Carbon Dioxide 23 mmol/L (22-29); Chloride 109 mmol/L (98-107); Creatinine Clr Calc Pharmacy 66.0387; Glucose 157 mg/dL (65-115); Osmolality Calculated 289 mOsm/kg (285-295); Potassium 3.8 mmol/L (3.5-5.1); Sodium 140 mmol/L (136-145)
[2019-09-25 06:36] LABS: Glucose Point of Care 162 mg/dL (70-110)
[2019-09-25 07:00] VITALS: BP 131/64; PULSE 62; RESP 18; TEMP 36.6; O2SAT 95
[2019-09-25 10:58] LABS: Glucose Point of Care 307 mg/dL (70-110)
[2019-09-25 11:00] VITALS: BP 130/66; PULSE 72; RESP 18; TEMP 36.6; O2SAT 96
--- NOTE | 2019-09-25 11:58 | P.DS_ITS ---
Discharge Providers Date of Admission: 09/23/19 01:51 Date of Discharge: September 25, 2019 Attending Provider at Admission: Iván Dougherty MD Attending Provider at Discharge: Vimal Lane MD Primary Care Provider: Cori Lane MD Diagnoses at Discharge Discharge Diagnosis (1) Blood loss anemia: Status: Acute Problem details: Hemoglobin is stabilized. Gastritis noted on EGD. Patient taken off Coumadin, aspirin (2) GI bleed: Status: Acute Qualifiers: GI bleed type/associated pathology: unspecified gastrointestinal hemorrhage type Qualified Code(s): K92.2 - Gastrointestinal hemorrhage, unspecified (3) Afib: Status: Acute Reason for Visit Reason for Visit: GI BLEED Hospital Course Hospital Course: Dawn is a 74-year-old white female admitted to the hospital with history of black stools consistent with upper GI bleed. She has past history of bleeding from AVMs. She was taken off her Coumadin. Heart history was clarified and she in fact had not had a mitral valve replacement. She had mitral and tricuspid valve repair, not necessitating anticoagulants. She does have atrial fibrillation for which she was on anticoagulation. 3 units of packed red blood cells were given as well transfusion of FFP. With this her INR was normal, hemoglobin increased and she underwent an EGD demonstrating some gastritis but no active bleeding. While in the hospital no obvious active bleeding, hemoglobin stabilized. She will be discharged to home without aspirin or anticoagulation. Consideration for re-adding aspirin could be made in the future if hemoglobin remained stable and she will need outpatient follow-up with GI per her primary regarding her AVMs. Physical Exam Narrative: EXAM NARRATIVE: General exam no apparent distress Cardiovascular regular rate and rhythm without murmur Lungs clear Abdomen is soft with positive bowel sounds Extremities no cyanosis clubbing or edema Discharge Data Data Completed and Pending: Pending at discharge Category Date Time Status Prothrombin Time INR AM LABS Lab 09/26/19 04:00 Ordered Labs from last 24 hours 09/25/19 09/25/19 09/25/19 10:42 06:28 05:39 WBC RBC Hgb Hct MCV MCH MCHC RDW Plt Count MPV Neut % (Auto) Lymph % (Auto) [place] % (Auto) Eos % (Auto) Baso % (Auto) Neut # (Auto) Lymph # (Auto) [place] # (Auto) Eos # (Auto) Baso # (Auto) Nucleated RBC % (a uto) Nucleated RBCs # PT INR Sodium 140 Potassium 3.8 Chloride 109 H Carbon Dioxide 23 Anion Gap 11.8 BUN 13 Creatinine 0.8 GFR Calculation Not Reportable Glucose 157 H POC Glucose 307 162 Calculated Osmolal ity 289 Calcium 8.0 L 09/25/19 09/25/19 09/24/19 05:39 05:39 20:59 WBC 5.4 RBC 2.74 L Hgb 7.9 L Hct 26.3 L MCV 96.0 MCH 28.8 MCHC 30.0 RDW 22.2 H Plt Count 120 L MPV 10.6 H Neut % (Auto) 63.5 Lymph % (Auto) 19.5 [place] % (Auto) 9.3 Eos % (Auto) 6.9 Baso % (Auto) 0.4 Neut # (Auto) 3.42 Lymph # (Auto) 1.1 [place] # (Auto) 0.5 Eos # (Auto) 0.4 Baso # (Auto) 0.0 Nucleated RBC % (a uto) 0 Nucleated RBCs # 0.0 PT 14.30 H INR 1.07 Sodium Potassium Chloride Carbon Dioxide Anion Gap BUN Creatinine GFR Calculation Glucose POC Glucose 155 Calculated Osmolal ity Calcium 09/24/19 09/24/19 17:12 14:00 WBC RBC Hgb 8.2 L Hct 27.6 L MCV MCH MCHC RDW Plt Count MPV Neut % (Auto) Lymph % (Auto) [place] % (Auto) Eos % (Auto) Baso % (Auto) Neut # (Auto) Lymph # (Auto) [place] # (Auto) Eos # (Auto) Baso # (Auto) Nucleated RBC % (a uto) Nucleated RBCs # PT INR Sodium Potassium Chloride Carbon Dioxide Anion Gap BUN Creatinine GFR Calculation Glucose POC Glucose 179 Calculated Osmolal ity Calcium Vitals: Last Vital Signs Temp 97.8 F 09/25/19 11:00 Pulse 72 09/25/19 11:00 Resp 18 09/25/19 11:00 BP 130/66 09/25/19 11:00 Pulse Ox 96 09/25/19 11:00 Discharge Plan Discharge Patient Disposition: Home Condition: Stable Prescriptions: New amiodarone [Pacerone] 200 mg Tablet 200 mg PO DAILY Qty: 30 RF: 0 Continued levothyroxine 50 mcg capsule 50 mcg PO DAILY RF: 0 metformin 500 mg tablet 500 mg PO BID RF: 0 pantoprazole 40 mg tablet,delayed release (DR/EC) 40 mg PO BID RF: 0 potassium chloride 20 mEq tablet extended release 20 meq PO BID RF: 0 pravastatin 40 mg tablet 40 mg PO DAILY RF: 0 albuterol sulfate 90 mcg/actuation aerosol powdr breath activated 2 inh INHALATION Q4H PRN (Reason: Shortness Of Breath) RF: 0 furosemide 40 mg tablet 40 mg PO DAILY RF: 0 ferrous sulfate 325 mg (65 mg iron) tablet 325 mg PO BID RF: 0 Discontinued warfarin 2 mg tablet 2 mg PO DAILY RF: 0 aspirin [Adult Low Dose Aspirin] 81 mg tablet,delayed release (DR/EC) 81 mg PO DAILY RF: 0 amiodarone 200 mg tablet 400 mg PO DAILY Qty: 180 RF: 3 Referrals: Cori Lane MD [Primary Care Provider] - 1-3 days Discharge Diet: Cardiac Discharge Activity: Increase activity as tolerated Discharge Attestations Time Spent in Discharge Care*: greater than 30 min Quality Metrics Clinical Quality Measures During this hospital stay, did patient experience: None Coding Level of Care Code Acute Field Kiln Burner for Chg Fwd Diagnoses Blood loss anemia D50.0 GI bleed K92.2 GI bleed type/associated pathology: unspecified gastrointestinal hemorrhage type Afib I48.91
[2019-09-25 12:19] VITALS: BP 130/66; PULSE 72; RESP 18; TEMP 36.6; O2SAT 96
[2019-09-25 13:44] VITALS: BP 130/66; PULSE 72; RESP 18; TEMP 36.6; O2SAT 96
== END 2019-09-25 13:47 | disposition home or self-care (01) | DRG 378 ==
LOC: ER 01:52 → MEDSURG 02:30
PROVIDERS: Surgery; Admitting Provider Internal Medicine; PCP Family Medicine; Visit Provider Internal Medicine
PROC: 0DJ08ZZ Inspection of Upper Intestinal Tract, Via Natural or Artificial Opening Endoscopic (ICD-10-PCS; CPT 43235; principal; 2019-09-24 11:30)
DX: K92.2 Gastrointestinal hemorrhage, unspecified (principal); D62 Acute posthemorrhagic anemia; I48.20 Chronic atrial fibrillation, unspecified; E11.9 Type 2 diabetes mellitus without complications; Z95.2 Presence of prosthetic heart valve; Z79.84 Long term (current) use of oral hypoglycemic drugs; Z79.82 Long term (current) use of aspirin; Z79.01 Long term (current) use of anticoagulants; I34.0 Nonrheumatic mitral (valve) insufficiency; I07.1 Rheumatic tricuspid insufficiency; I27.20 Pulmonary hypertension, unspecified; Z87.891 Personal history of nicotine dependence
CPT/HCPCS: 12345; 36415; 36416; 36430; 43235; 80048; 80053; 82962; 85014; 85018; 85025; 85610; 86850; 86900; 86920; 86927; 96372; 96375; 99282; C9113; J1200; J1815; J1940; J2704; J3430; J7030; P9016; P9017

== ENCOUNTER → 2020-06-05 13:20 | Outpatient (BNVA) | payer MEDICARE, MEDICAID, SELFPAY | PROVIDERS: PCP Family Medicine; Visit Provider Internal Medicine Cardiovascular Disease | DX: I48.19 Other persistent atrial fibrillation (principal); I10 Essential (primary) hypertension; I27.20 Pulmonary hypertension, unspecified | CPT/HCPCS: 80053; 85025; 85610 ==

== ENCOUNTER 2020-10-20 09:35 | Outpatient (CLI) | payer MEDICARE, MEDICAID, SELFPAY ==
--- NOTE | 2020-10-20 09:45 | US_ITS ---
WS: [id number] ULTRASOUND ABDOMEN LIMITED CLINICAL INFORMATION: ABNORMAL LEVELS OF OTHER SERUM ENZYMES COMPARISON: None. FINDINGS: Liver Size: Mild hepatomegaly. Craniocaudal length: 15.6 cm. Echogenicity: Coarse Surface nodularity: None. Mass (size and location): None. Bile ducts Intrahepatic ducts: Normal. Common bile duct diameter: 0.5 cm. Gallbladder Fluid distended but otherwise normal Gallstones: None. Gallbladder sludge: None. Gallbladder wall thickening: None. Pericholecystic fluid: None. Sonographic Melo sign: Absent. Pancreas Echogenic Right kidney: Normal. Hydronephrosis: None. Size: 9.9 cm x 3.9 cm x 4.0 cm. Abdominal aorta and IVC Visualized portions are normal. Ascites: None. US/US abdomen limited [id number] IMPRESSION: 1. Mild hepatomegaly diffuse fatty infiltration. 2. Fluid distended gallbladder which is otherwise normal in appearance. No oksana culi. Normal common bile duct. 3. No hydronephrosis in right kidney. 4. Echogenic pancreas likely due to fatty infiltration. Recommend correlation with pancreatic enzymes.
== END 2020-10-20 09:36 | disposition home or self-care (01) ==
LOC: RAD 09:40
PROVIDERS: PCP Family Medicine; Visit Provider Family Medicine
DX: R74.8 Abnormal levels of other serum enzymes (principal); K76.0 Fatty (change of) liver, not elsewhere classified; R16.0 Hepatomegaly, not elsewhere classified
CPT/HCPCS: 76705

== ENCOUNTER 2021-04-16 11:17 | Outpatient (CLI) | payer MEDICARE, MEDICAID, SELFPAY ==
--- NOTE | 2021-04-16 11:30 | CT_ITS ---
WS: [id number] CT ABDOMEN AND PELVIS WITH AND WITHOUT CONTRAST HISTORY: ABNORMAL LEVELS OF SERUM ENZYMES TECHNIQUE: Unenhanced 5 mm axial imaging first performed through the abdomen. Post contrast imaging t hrough the abdomen and pelvis. Oral contrast has been provided. Sagittal and coronal reformats are s ubmitted. All CT scans at [facility] use at least one of these dose optimization techniques: automated exposure control; mA and/or kV adjustment per patient size (includes targeted exams where d ose is matched to clinical indication); or iterative reconstruction. CONTRAST: Omnipaque 300; 95 mL IV. DLP: 3025.66 mGy.cm COMPARISON: 09/10/2017 CT and abdomen ultrasound 10/20/2020 Severe cardiomegaly. Slightly greater enlargement of the RIGHT heart. Motion artifact at the lung bas es due to breathing. Small hiatal hernia. Coarse echotexture of the liver. Marked nodularity of the liver surface. Mild enlargement of the caud ate and LEFT lobe and mild atrophy of the RIGHT lobe. Portal vein is still patent although mildly dil ated measuring up to 16 mm in diameter. There is mild periportal edema. No mass or abnormal enhanceme nt within the lobes of the liver. Gallbladder is moderately distended with adjacent fluid. Increased attenuation in the dependent portion of gallbladder suggesting small stones and/or sludge. Spleen ranjit sures 11 cm in length. No mass identified. Normal pancreas. Pancreatic duct and the common bile duct are normal size. No adrenal mass. Moderate atherosclerotic plaque throughout the aorta. No aneurysm. Kidneys are both enhancing normall y. Low-attenuation too small to characterize hypodensity in the mid LEFT kidney. No obstruction of ei ther kidney. No calcification. There is mild anasarca and edema in the mesentery. Mild soft tissue thickening along the paracolic gu tters. Very small amount of free fluid along the paracolic gutters. No significant adenopathy. There are small, subcentimeter mesenteric lymph nodes on the RIGHT. No free air. Increase in free fluid in the pelvis. No GI tract obstruction. Tortuous overlapping loops of the dist al colon. There are several diverticula without acute diverticulitis. No pelvic mass. Uterus and ovar ies are atrophic and very difficult to visualize as expected. Advanced degenerative disc disease and reverse S-shaped curvature lumbar spine. CT/CT abdomen pelvis wo/w [id number] IMPRESSION: 1. Changes of advanced cirrhosis. No hepatic mass identified. 2. Mildly dilated portal vein suggesting early portal venous hypertension. Spl een is not enlarged. 3. Mildly hydropic gallbladder with stones, sludge and small amount of adjacen t fluid. These changes are similar to the prior study from 2018 although mildly progressed. Gallbladder findings are probably due to hepatocellular disease. C annot completely exclude acute cholecystitis. 4. Very minimal fluid along the paracolic gutters with mesenteric edema and an asarca. 5. Atherosclerotic changes throughout the aorta with no aneurysm.
--- NOTE | 2021-04-16 11:42 | XR_ITS ---
WS: [id number] DEXA (DUAL ENERGY X-RAY ABSORPTIOMETRY) Bone mineral density was performed using a Audinate machine. HISTORY: ASYMPTOMATIC MENOPAUSAL STATE COMPARISON: 02/16/2018 Lumbar spine BMD (L1-L4): 1.374 g/cm2 T score: 1.6 Z score: 3.2 Total hip BMD: Left: 0.781 g/cm2. T score: -1.8 Z score: -0.1 Right: 0.808 g/cm2. T score: -1.6 Z score: 0.1 10 year probability of a major osteoporotic fracture is 22%. Compared to the prior study from 02/16/2018. Lumbar spine bone mineral density has increased by 7.9%. Bilateral hips bone mineral density has decreased by 11.1%. XR/XR DEXA axial skeleton* [id number] IMPRESSION: OSTEOPENIA based upon the WHO classification for females. There is been a significant decrease in bone mineral density within the hips si nce the prior study. Bone mineral density within the spine has increased but th is is probably erroneous and secondary to the sclerosis developing in the verte bral body osteophytes.
[2021-04-16] MEDS: iohexol 300 mg/mL 50 mL Btl PO (14:04)
[2021-04-16] MEDS: iohexol 300 mg/mL 100 mL Btl IV (14:04)
== END 2021-04-16 11:18 | disposition home or self-care (01) ==
LOC: RAD 11:24
PROVIDERS: PCP Family Medicine; Visit Provider Family Medicine
DX: Z78.0 Asymptomatic menopausal state (principal); M85.80 Other specified disorders of bone density and structure, unspecified site; R74.8 Abnormal levels of other serum enzymes
CPT/HCPCS: 74178; 77080

== ENCOUNTER 2021-09-20 17:56 | Inpatient (IN) | payer MEDICARE, MEDICAID, SELFPAY ==
[2021-09-20 18:06] VITALS: BP 129/65; PULSE 91; RESP 17; TEMP 37.2; O2SAT 96; BMI 26.6
--- NOTE | 2021-09-20 18:14 | XRR_ITS ---
PROCEDURE INFORMATION: Exam: XR Chest Exam date and time: 09/20/2021 10:24 PM Age: 76 years old Clinical indication: Angina; Additional info: Chest pain TECHNIQUE: Imaging protocol: Radiologic exam of the chest. Views: 1 view. COMPARISON: CR Chest 2 views* [id number] 01/20/2017 1:06 PM FINDINGS: Lungs: See Heart/Mediastinum finding. Pleural spaces: Unremarkable. No pleural effusion. No pneumothorax. Heart/Mediastinum: A mitral valve annulus seen. Cardiac silhouette is prominent appears stable compared with 01/20/2017. There appears to be right atrial enlargement. There is mild indistinctness of the pulmonary vasculature, findings that could represent mild pulmonary edema. Bones/joints: Unremarkable. XR/XR chest 1V portable [id number] IMPRESSION: 1. Mild indistinctness of the pulmonary vasculature could represent mild pulmonary edema. 2. Stable mild cardiomegaly and prominence of the right atrium. 3. Mitral valve annulus present.
--- NOTE | 2021-09-20 20:15 | ECG_ITS ---
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 Measurements Intervals [place] Rate: 87 P: [place]: QRS: 158 QRSD: 185 T: 29 QT: 458 QTc: 552 Interpretive Statements ATRIAL FIBRILLATION RIGHT AXIS DEVIATION [QRS AXIS > 100] RIGHT BUNDLE BRANCH BLOCK [120+ ms QRS DURATION, UPRIGHT V1, 40+ ms S IN I/aVL/V4/V5/V6] Compared to ECG 09/20/2021 18:17:21 No significant changes Electronically Signed On 09-21-2021 20:47:45 CDT by Mo Cabrales M.D. [id number]
--- NOTE | 2021-09-20 20:15 | ECG_ITS ---
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 Measurements Intervals [place] Rate: 96 P: [place]: QRS: 145 QRSD: 186 T: 5 QT: 483 QTc: 610 Interpretive Statements ATRIAL FIBRILLATION RIGHT AXIS DEVIATION [QRS AXIS > 100] RIGHT BUNDLE BRANCH BLOCK [120+ ms QRS DURATION, UPRIGHT V1, 40+ ms S IN I/aVL/V4/V5/V6] Compared to ECG 06/26/2017 12:43:24 No significant changes Electronically Signed On 09-21-2021 20:49:41 CDT by Mo Cabrales M.D. [id number]
[2021-09-20 21:48] LABS: Basophils % 0.3 %; Eosinophils # 0.1 10^3/uL (0.0-0.8); Eosinophils % 1.9 %; Hemoglobin 8.5 g/dL (11.5-15.3); Lymphocytes # 0.8 10^3/uL (0.8-4.8); Lymphocytes % 11.3 %; Mean Corpuscular HGB Conc 31.5 g/dL (30.0-36.0); Mean Corpuscular Hemoglobin 27.9 pg (28.0-34.0); Mean Corpuscular Volume 88.5 fl (81-99); Mean Platelet Volume 11.6 fL (7.4-10.4); Monocytes # 0.7 10^3/uL (0.2-0.9); Neutrophils % 76.1 %; Nucleated Red Blood Cells % 0 %; Platelet Count 128 10^3/cmm (130-400); Red Blood Count 3.05 10^6/uL (4.1-5.3); Red Cell Distribution Width 15.7 % (12.1-15.1)
[2021-09-20 22:07] LABS: Anion Gap 16.1 (5-19); Blood Urea Nitrogen 20 mg/dL (8-23); Calcium 8.8 mg/dL (8.5-10.5); Carbon Dioxide 23 mmol/L (22-29); Chloride 101 mmol/L (98-107); Creatinine Clr Calc Pharmacy 56.9222; Glucose 168 mg/dL (65-115); Osmolality Calculated 288 mOsm/kg (285-295); Potassium 4.1 mmol/L (3.5-5.1); Sodium 136 mmol/L (136-145)
[2021-09-20 22:08] LABS: Troponin(5th) Baseline 20 ng/L (0-10)
--- NOTE | 2021-09-20 22:12 | ED_ITS ---
HPI - General Adult General: Chief complaint: Chest Pain Stated complaint: chest pain/abnormal feeling Time Seen by Provider: 09/20/21 22:06 History of Present Illness: Patient is a 76-year-old female with a history of anemia, GI bleeding, type 2 diabetes, atrial fibrillation previously on warfarin, mitral valve repair for rheumatic heart fever requiring annuloplasty presenting to the emergency room with 3 days of chest pressure. Patient tells me that she has had significant chest pressure with exertion. Patient also reports lightheadedness and nearly passing out. For the last week, patient has been using her Lasix 40 mg however has noticed significant swelling in the legs and belly. Patient denies any fever/chills, cough, runny nose sore throat, diarrhea, melena hematochezia. Patient has no complaints. Onset:3 days ago Duration:3 days Location:home Severity:moderate Associated symptoms: Reports chest pain; Deny dyspnea, nausea, rash, palpitations or vomiting Review of Systems 2 Const: Denies: fever(s) or chills Eyes: Denies: change in vision ENMT: Denies: mouth pain Card: Reports: chest pain and dyspnea on exertion; Denies: palpitations Resp: Denies: dyspnea or non-productive cough GI: Reports: other (+abdominal distension); Denies: abdominal pain, nausea, vomiting or diarrhea : Denies: dysuria Musc: Reports: other (+swelling of the legs b/l); Denies: extremity pain Skin/Breast: Denies: rash or new lesions Neuro: Denies: weakness in extremities Psych: Reports: other (Normal mood) Gallito/Lymph: Denies: easy bruising PFS ED PFSH: Medical History Afib Chronic atrial fibrillation Congenital heart disease Diabetes GI bleed Moderate mitral regurgitation Moderate tricuspid regurgitation Pulmonary hypertension Type 2 diabetes mellitus Surgical History Hx of cataract surgery S/P atrial septal defect closure, surgical Family History Father Cancer Brother Cancer Grandmother CAD (coronary artery disease) Denies family history of Diabetes Clotting disorder Dementia Hyperlipidemia Psychiatric illness Chronic kidney disease (CKD) Suicide Anesthesia complication Bleeding disorder Family history of premature coronary artery disease Lung disease Hypertension Stroke Social History Smoking and tobacco status: former smoker Second hand smoke exposure: No Alcohol intake: never Physical Exam Const: COMMON NORMALS: alert HENMT: COMMON NORMALS: atraumatic HEAD & SCALP: atraumatic MOUTH: moist mucous membranes not abnormal Eye: COMMON NORMALS: EOMs intact bilaterally and conjunctivae normal CONJUNCTIVA: Yes conjunctivae normal Neck/C-Spine: COMMON NORMALS: full ROM and supple Resp: COMMON NORMALS: normal respiratory effort and clear to auscultation bilaterally AUSCULTATION: clear to auscultation bilaterally Cardio: OTHER: +irregular irregular rhythm GI: COMMON NORMALS: Soft to palpation and non-tender PALPATION: Yes Soft to palpation OTHER: +mild abdominal distension with fluid wave. No focal TTP. NO guarding rebound, guarding, rigidity. No CVA tenderness to percussion. Neg Melo/Neg McBurney's point tenderness, no suprabupic tenderness to palpation. Extremity: COMMON NORMALS: full ROM OTHER: 3+ lower extremity swelling Neuro: SENSORIUM/ORIENTATION: Yes alert MOTOR EXAM: No Abnormal motor strength present and Other motor observations present (no focal motor deficits) Psych: COMMON NORMALS: speech normal SPEECH: Yes normal speech MOOD & AFFECT: Yes euthymic mood Course Vital Signs: Vital signs: Vital Signs Temperature 99.0 F 09/20/21 18:06 Pulse Rate 81 09/20/21 22:56 Respiratory Rate 18 09/20/21 22:56 Blood Pressure 135/71 09/20/21 22:56 Pulse Oximetry 95 09/20/21 22:56 [facility] - General Adult Medical Decision Making Patient is a 76-year-old female with a history of anemia, GI bleeding, type 2 diabetes, atrial fibrillation previously on warfarin, mitral valve repair for rheumatic heart fever requiring annuloplasty presenting to the emergency room with 3 days of chest pressure. Hemoglobin 8.6 similar to previous baseline. Patient not on any anticoagulation. Patient have a troponin of 20. EKG is nonischemic. Given significant past medical history no recent cardiac work-up. Patient will be mid hospital for heart score >4. Patient does have signs of volume overload with a proBNP of 1390. Patient received 80 mg of Lasix in the ER for volume overload. EKG showed atrial fibrillation with right bundle branch with expected expected T wave inversion in V1-V3. No other ST-T wave changes. Disposition: admission Lab Data : 09/20/21 21:09/20/21 21: Laboratory Results WBC 7.0 10^3/uL (4.0-10.0) 09/20/21 21: RBC 3.05 10^6/uL (4.1-5.3) L 09/20/21 21: Hgb 8.5 g/dL (11.5-15.3) L 09/20/21 21: Hct 27.0 % (37.0-47.0) L 09/20/21 21: MCV 88.5 fl (81-99) 09/20/21: MCH 27.9 pg (28.0-34.0) L 09/20/21 21: MCHC 31.5 g/dL (30.0-36.0) 09/20/21: RDW 15.7 % (12.1-15.1) H 09/20/21 21: Plt Count 128 10^3/cmm (130-400) L 09/20/21 21: MPV 11.6 fL (7.4-10.4) H 09/20/21: Neut % (Auto) 76.1 % 09/20/21: Lymph % (Auto) 11.3 % 09/20/21: Mckinley % (Auto) 10.0 % 09/20/21: Eos % (Auto) 1.9 % 09/20/21: Baso % (Auto) 0.3 % 09/20/21: Neut # (Auto) 5.30 10^3/uL (1.8-7.7) 09/20/21: Lymph # (Auto) 0.8 10^3/uL (0.8-4.8) 09/20/21: Mckinley # (Auto) 0.7 10^3/uL (0.2-0.9) 09/20/21 21: Eos # (Auto) 0.1 10^3/uL (0.0-0.8) 09/20/21: Baso # (Auto) 0.0 10^3/uL (0.0-0.1) 09/20/21 21:22 Nucleated RBC % (auto) 0 % 09/20/21 21:22 Nucleated RBCs # 0.0 /100WBC 09/20/21 21:22 Sodium 136 mmol/L (136-145) 09/20/21 21:22 Potassium 4.1 mmol/L (3.5-5.1) 09/20/21 21:22 Chloride 101 mmol/L (98-107) 09/20/21 21:22 Carbon Dioxide 23 mmol/L (22-29) 09/20/21 21:22 Anion Gap 16.1 (5-19) 09/20/21 21: BUN 20 mg/dL (8-23) 09/20/21 21: Creatinine 0.9 mg/dL (0.5-0.9) 09/20/21 21: GFR Calculation Not Reportable 09/20/21 21:22 Glucose 168 mg/dL (65-115) H 09/20/21 21: Calculated Osmolality 288 mOsm/kg (285-295) 09/20/21 21: Calcium 8.8 mg/dL (8.5-10.5) 09/20/21 21:22 Troponin T Baseline 20 ng/L (0-10) H 09/20/21 21:22 NT-Pro-B Natriuret Pep 1390 pg/mL (0-450) H 09/20/21 21:22 Discharge Plan Discharge Patient Disposition: Admitted As Inpatient Admit Provider: Stefan Lopez Clinical Impression: Chest pain, Anemia, Volume overload Condition: Stable Coding Level of Care Code ED B2B Appointment Setter for Chg Fwd Exam Comprehensive
[2021-09-20] MEDS: aspirin 325 mg Tablet PO (22:38)
[2021-09-20 22:40] VITALS: RESP 18; O2SAT 98
[2021-09-20] MEDS: morphine 4 mg/mL SDV 1 mL IVP (22:40)
[2021-09-20 22:56] VITALS: BP 135/71; PULSE 81; RESP 18; O2SAT 95
[2021-09-20 22:57] LABS: NT Pro B Type Natriuretic Pept 1390 pg/mL (0-450)
[2021-09-20 23:39] VITALS: BP 135/71; PULSE 81; RESP 18; O2SAT 95
[2021-09-20 23:45] VITALS: BP 148/67; PULSE 86; RESP 18; TEMP 36.8; O2SAT 95
[2021-09-20 23:50] LABS: Troponin 5 2HR 19.09 ng/L (0-10)
[2021-09-20 23:53] LABS: Troponin 5 2HR Delta -0.91 ABS# (0-10)
[2021-09-21] VITALS (7 sets, daily range): BP systolic 105–137; BP diastolic 53–67; PULSE 82–94; RESP 12–19; TEMP 36.6–36.9; O2SAT 94–98
--- NOTE | 2021-09-21 00:15 | ECG_ITS ---
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 Measurements Intervals [place] Rate: 78 P: ID: QRS: 150 QRSD: 189 T: 12 QT: 514 QTc: 588 Interpretive Statements ATRIAL FIBRILLATION RIGHT AXIS DEVIATION [QRS AXIS > 100] RIGHT BUNDLE BRANCH BLOCK [120+ ms QRS DURATION, UPRIGHT V1, 40+ ms S IN I/aVL/V4/V5/V6] Compared to ECG 09/20/2021 23:51:40 No significant changes Electronically Signed On 09-21-2021 20:42:26 CDT by Mo Cabrales M.D. [id number]
--- NOTE | 2021-09-21 00:15 | PC.NURSE ---
weight on admission is 176.5
--- NOTE | 2021-09-21 00:25 | PM.HP ---
Providers/Chief Complaint Admitting Physician: Stefan Lopez Primary Care Provider: Cori Lane MD Chief Complaint: chest pain/abnormal feeling History of Present Illness Pleasant 76-year-old lady with history of open heart tricuspid valve replacement as well as mitral valve annuloplasty band in 2019, history of rheumatic heart disease, A. fib, pulmonary hypertension, DM2, who presents due to close to a week of intermittent chest pressure, as well as recently worsening dyspnea on exertion, even with minimal exertion, and over the last several weeks also progressive lower extremity edema recently also abdominal distention despite taking Lasix p.o. at home. Chest pressure is worsened by exertion. Without radiation. She did not try nitro at home. She has not had any fever or chills. Denies any cough or phlegm production. She has been needing to sleep on 2 pillows. Review of Systems Const: Denies: fever(s), chills, body aches or malaise Eyes: Denies: change in vision, eye discomfort or eye redness ENMT: Denies: throat pain, oral sores or ear or mastoid pain Card: Reports: edema, dyspnea on exertion and other (chest pressure); Denies: pre-syncope Resp: Denies: dyspnea, productive cough, change in phlegm color or hemoptysis GI: Reports: other (distention); Denies: abdominal pain, nausea, vomiting, diarrhea, constipation, hematochezia or melena : Denies: flank pain, urinary frequency or hematuria Musc: Denies: back pain, joint swelling or joint redness Skin/Breast: Denies: rash or new lesions Neuro: Denies: headache(s), numbness in extremities, weakness in extremities, dizziness, confusion or seizure-like activity Endo: Denies: polyuria or polydipsia Gallito/Lymph: Denies: easy bleeding or tender lymph nodes All/Imm: Denies: urticaria or tongue swelling Medications/Allergies Home Medications Medication Instructions Recorded Confirmed Last Taken Type albuterol sulfate 90 mcg/actuation 2 inh INHALATION Q4H PRN 05/18/19 06/05/20 Unknown History breath activated powder inhaler furosemide 40 mg tablet 40 mg PO DAILY 05/18/19 06/05/20 09/22/19 History levothyroxine 50 mcg capsule 50 mcg PO DAILY 03/06/05/20 09/22/19 08:00 History metformin 500 mg tablet 500 mg PO BID tab 05/18/19 06/05/20 09/22/19 History pantoprazole 40 mg tablet,delayed 40 mg PO BID tab 05/18/19 06/05/20 09/22/19 History release pravastatin 40 mg tablet 40 mg PO DAILY 05/18/19 06/05/20 09/22/19 History ferrous sulfate 325 mg (65 mg 325 mg PO BID tab 08/17/19 06/05/20 09/22/19 History iron) tablet amlodipine 10 mg tablet 10 mg PO DAILY 06/05/20 06/05/20 Unknown History aspirin 81 mg tablet,delayed 81 mg PO DAILY 06/05/20 06/05/20 Unknown History release (Adult Low Dose Aspirin) potassium chloride 20 mEq 10 meq PO BID tab 06/05/20 06/05/20 Unknown History tablet,extended release amiodarone 400 mg tablet 400 mg PO DAILY #90 tab 09/11/20 Unknown Rx Allergies Allergy/AdvReac Type Severity Reaction Status Date / Time No Known Allergies Allergy Unknown Unverified 09/23/19 08:19 PFSH Acute PFSH: Medical History Afib Chronic atrial fibrillation Congenital heart disease Diabetes GI bleed Moderate mitral regurgitation Moderate tricuspid regurgitation Pulmonary hypertension Type 2 diabetes mellitus Surgical History Hx of cataract surgery S/P atrial septal defect closure, surgical Family History Father Cancer Brother Cancer Grandmother CAD (coronary artery disease) Denies family history of Diabetes Clotting disorder Dementia Hyperlipidemia Psychiatric illness Chronic kidney disease (CKD) Suicide Anesthesia complication Bleeding disorder Family history of premature coronary artery disease Lung disease Hypertension Stroke Social History Smoking and tobacco status: former smoker Second hand smoke exposure: No Alcohol intake: never Vitals/I&O/Wt Last Vital Signs Temp 98.2 F 09/20/21 23:45 Pulse 86 09/20/21 23:45 Resp 18 09/20/21 23:45 BP 148/67 09/20/21 23:45 Pulse Ox 95 09/20/21 23:45 Weight last 48 hrs Weight 77.111 kg Physical Exam Narrative: Accompanied by her daughter. Const: COMMON NORMALS: alert GENERAL APPEARANCE: cooperative ORIENTATION/CONSCIOUSNESS: Yes awake HENMT: COMMON NORMALS: normocephalic, EAC's normal, Normal external nose present and moist oral mucous membranes HEAD & SCALP: normocephalic NOSE: Normal external nose present EXTERNAL AUDITORY CANAL: EAC's normal Neck/C-Spine: COMMON NORMALS: no meningeal signs Chest: CHEST: Yes Symmetrical chest wall rise Resp: COMMON NORMALS: clear to auscultation bilaterally AUSCULTATION: clear to auscultation bilaterally Cardio: COMMON NORMALS: regular rate and regular rhythm RATE: regular rate RHYTHM: regular rhythm HEART SOUNDS: Murmur heart sound present systolic GI: COMMON NORMALS: Soft to palpation and non-tender INSPECTION: Yes abdominal distension PALPATION: Yes Soft to palpation Extremity: GENERAL: Yes edema (3+) Neuro: COMMON NORMALS: moves all extremities SENSORIUM/ORIENTATION: Yes alert MENINGEAL SIGNS: Yes no meningeal signs Psych: COMMON NORMALS: mental status grossly normal Skin: COMMON NORMALS: no wounds RASHES: no rashes Data : 09/20/21 21:22 09/20/21 21:22 A&P Assessment and plan (1) Chest pressure: This patient presents of the last week or so, as well as progressive volume overload, appears to be in CHF. Risk factors of CAD including Diabetes and hypertension. Troponin abnormality, baseline 20, 2-hour troponin 19. EKG with atrial fibrillation, aberrant conduction. Complete troponin EKG series. Monitor on telemetry. Assess TTE. Additional risk stratification with stress testing. Status: Acute (2) Volume overload: Volume overload, possible acute CHF, prespecified at the moment. Lower extremity edema, abdominal distention, dyspnea on exertion. Easy fatigability. Assess TTE. Received Lasix 80 mg x 1. Continue 40 mg twice daily. Monitor I&O. Escobar catheter for now for accurate I&O and with late-night dose of Lasix. Assess TSH Discussed with her and her daughter also additionally likely some lower extreme edema may be contributing from amlodipine. Consider changing antihypertensive, or swallowing solids can be counteracted with addition of KERON inhibitor or ARB, in case her renal function were stable. Status: Acute (3) Anemia: Noted chronic anemia, with some hemoglobin fluctuation, somewhat worse than in June 2020. Currently 0.5, previously 11.3, although currently globin appears congruent whemoglobins preceding the 2020 value. Normocytic anemia. Check reticulocyte, iron studies, Hemoccult. TSH. Combined with some chronic thrombocytopenia. Follow-up with PCP. Consider hematology follow-up. Low-dose subcu heparin prophylaxis for now, but monitor blood counts. Status: Acute Plan Thrombocytopenia, chronic: Follow-up with PCP. Consider hematology follow-up. Status post tricuspid valve replacement in 2019 Status post mitral valve annuloplasty band 2019 Pulmonary hypertension A. fib DM2 Attestations Medical Necessity Statement*: Place in observation for assessment and management of recurrent chest pressure, limiting exertion, volume overload, possible acute CHF. Coding Level of Care Code Acute [employer] Receptionist for Anag Isaakd Diagnoses Chest pressure R07.89 Volume overload E87.70 Anemia D64.9
--- NOTE | 2021-09-21 00:42 | USCV_ITS ---
Earlene, Dawn Age: 76 Gender: F : 1945 Exam Date: 09/21/2021 03:19 Ordering Phys: Stefan Lopez MD Technologist: MARY GRACE Exam Location: [facility] Indication: BYRNES. History of valve replacement, but patient cannot tell me type or which valve. BP: 148 / 67 HR: 86 Rhythm: Atrial fibrillation Technical Quality: Adequate MEASUREMENTS (Male / Female) Normal Values 2D ECHO LV Diastolic Diameter PLAX 4.8 cm 4.2 - 5.9 / 3.9 - 5.3 cm LV Systolic Diameter PLAX 3.3 cm IVS Diastolic Thickness 1.5 cm 0.6 - 1.0 / 0.6 - 0.9 cm IVS Systolic Thickness 1.9 cm LVPW Diastolic Thickness 1.8 cm 0.6 - 1.0 / 0.6 - 0.9 cm LVPW Systolic Thickness 1.9 cm LVOT Diameter 2.0 cm LV Ejection Fraction 2D Teich 58.4 % LV Ejection Fraction MOD 2C 53.4 % LV Ejection Fraction 2C AL 52.2 % LA Diameter 5.0 cm LA Width 5.5 cm LA Height 6.8 cm RA Width 5.8 cm RA Height 5.3 cm Aorta at Sinotubular Diameter 2.8 cm IVC Diameter 2.0 cm M-MODE Aortic Annulus Diameter 2.8 cm LA Ao Ratio MM 1.5 MV E Point Septal Separation 0.6 cm DOPPLER AV Peak Velocity 232.0 cm/s LVOT Peak Velocity 110.0 cm/s AV Area Cont Eq vti 1.5 cm squared AV Area Cont Eq pk 1.5 cm squared MV Peak Velocity 197.0 cm/s MV Area PHT 2.7 cm squared MV E' Velocity 104.5 cm/s Mitral E to MV E' Ratio 11.0 Mitral E to LV E' Lateral Ratio 8.6 Mitral E to LV E' Septal Ratio 15.5 TR Peak Velocity 378.0 cm/s TR Peak Gradient 57.2 mmHg TV Peak E Velocity 79.0 cm/s Right Atrial Pressure 10.0 mmHg Pulmonary Artery Systolic Pressu 67.2 mmHg PV Peak Velocity 306.0 cm/s RV Acceleration Time 0.1 s RV Ejection Time 0.3 s RV AcT/ET 0.2 FINDINGS Left Ventricle Normal left ventricular size. LV systolic function is normal with EF of 55-60%. No regional wall motion abnormalities. Right Ventricle Right ventricle is dilated and hypokinetic Right Atrium The right atrium is normal in size. Left Atrium The left atrium is severely enlarged Mitral Valve Mitral annuloplasty ring seen with mitral annular calcification. There is mild to moderate mitral regurgitation. Aortic Valve Aortic valve is thickened and calcified. Mild aortic stenosis is seen with a mean gradient across aortic valve of 12.1 mmHg and aortic valve area of 1.45 cm. Trace aortic regurgitation is seen Tricuspid Valve Structurally normal tricuspid valve. Mild to moderate tricuspid regurgitation. RVSP is 55 to 60 mmHg. This is consistent with moderate pulmonary hypertension. Pulmonic Valve Not well-visualized Pericardium Normal pericardium without effusion. Aorta Normal ascending aorta dimension. IVC CONCLUSIONS LV systolic function is normal with EF of 55 to 60%. RV is dilated and hypokinetic. Biatrial enlargement. Mitral annuloplasty ring is seen. Mild to moderate mitral regurgitation Mild aortic stenosis is seen with a mean gradient across aortic valve of 12.1 mmHg and aortic valve area of 1.45 cm. Trace aortic regurgitation is seen Mild to moderate tricuspid regurgitation. Moderate pulmonary hypertension. Compared to prior echocardiogram from 01/22/2019, RV now is dilated and hypokinetic. Mo Cabrales MD (Electronically Signed) Final Date: 21 September 2021 15:00 S
--- NOTE | 2021-09-21 00:45 | ECG_ITS ---
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 Interpretive Statements NAME OF STUDY: LEXISCAN SESTAMIBI STRESS TEST INDICATION: Chest Pain, PROCEDURE: At the baseline, the EKG revealed atrial fibrillation with a controlled ventricular response rate of 81 bpm. Right bundle branch block pattern the baseline blood pressure was 137/65 mm Hg with a heart rate of 81 beats/min. Lexiscan was infused over a period of 20 seconds. A total of 0.4 milligrams of Lexiscan was infused. The stress phase was continued for a total of 5 minutes. Heart rate at the end of the stress phase was 88 with a blood pressure 110/52. The EKG at the peak infusion revealed no significant changes. Sestamibi was injected 20 seconds after the Lexiscan infusion. Blood pressure at the end of the recovery phase was 113/53 with a heart rate of 84 per minute. CONCLUSION: 1. No significant EKG changes with the LexiScan infusion 2. No LexiScan induced chest pain or cardiac arrhythmia 3. Normal blood pressure and heart rate response 4. Sestamibi/sestamibi perfusion scan pending; see separate report. Electronically Signed On 09-21-2021 14:13:36 CDT by Mckenzie Scott M.D. [id number]
--- NOTE | 2021-09-21 00:46 | NMCV_ITS ---
NM angie perf SPECT r/s* [id number] Dawn Henao Age: 76 Gender: F : 1945 Exam Date: 09/21/2021 00:46 Ordering Phys: Stefan Lopez MD Technologist: RAJESH Pike Exam Location: [facility] Indications: CHEST PAIN STRESS TEST Please see separate stress test report in [facility] for full findings IMAGE PROTOCOL Rest/Stress 1 Lexiscan Day Radiopharmaceutical Dose (mCi) Administration Site Administered by Rest: Tc-99m 10.6 IV RAJESH Abad Sestamibi Stress:Tc-99m 32.6 IV RAJESH Abad Sestamibi Rest: 21-Sep-2021 60 Discovery 630 Stress: 21-Sep-2021 30 Discovery 630 0.4mg Lexiscan. Images obtained in supine and prone position. SPECT RESULTS Technical Quality: Excellent Raw Data Analysis: Normal Image Corrections: No attenuation or motion correction applied Summed Stress Score: 0 Summed Rest Score: 4 Summed Difference Score: 0 PERFUSION FINDINGS A small area of slightly decreased tracer uptake was noted in the inferolateral and apical lateral regions. No significant reversibility was noted in these regions. FUNCTIONAL RESULTS (calculated via Gated SPECT) Stress Image LV EF (%): 66 Stress EDV (mL):128 TID: 0.97 Stress ESV (mL):43 FUNCTIONAL FINDINGS: Segmental wall motion analysis revealing no gross wall motion abnormalities IMPRESSIONS 1. Myocardial perfusion imaging revealing patchy areas of persistent decreased tracer uptake in the inferolateral and apical lateral regions, suggestive of myocardial scarring versus attrition artifact. 2. Normal LV ejection fraction of 66%. 3. Segmental wall motion analysis revealing no gross wall motion abnormalities 4. Normal LV volume Low probability for coronary ischemia, based on the above findings Dr Mckenzie Scott MD FACC (Electronically Signed) Final Date: 21 September 2021 11:17 S
[2021-09-21 00:56] LABS: Hematocrit 26.9 % (37.0-47.0); Retic Production Index 2.15; Reticulocyte % 3.2 % (0.5-2.0)
[2021-09-21] MEDS: heparin 5,000 unit/mL INJ 1 mL 5000 UNIT SUBCUT (01:38)
[2021-09-21] MEDS: FUROsemide 10 mg/mL SDV 10mL 80 MG IVP (01:54)
[2021-09-21 03:32] LABS: Basophils % 0.3 %; Eosinophils # 0.2 10^3/uL (0.0-0.8); Eosinophils % 2.8 %; Hematocrit 25.6 % (37.0-47.0); Hemoglobin 7.7 g/dL (11.5-15.3); Lymphocytes # 0.8 10^3/uL (0.8-4.8); Lymphocytes % 13.6 %; Mean Corpuscular HGB Conc 30.1 g/dL (30.0-36.0); Mean Corpuscular Hemoglobin 27.7 pg (28.0-34.0); Mean Corpuscular Volume 92.1 fl (81-99); Monocytes # 0.7 10^3/uL (0.2-0.9); Monocytes % 11.6 %; Neutrophils # 4.26 10^3/uL (1.8-7.7); Neutrophils % 71.4 %; Nucleated Red Blood Cells % 0 %; Platelet Count 119 10^3/cmm (130-400); Red Blood Count 2.78 10^6/uL (4.1-5.3); Red Cell Distribution Width 15.9 % (12.1-15.1)
[2021-09-21 03:58] LABS: Troponin 5 6HR 20.75 ng/L (0-10)
[2021-09-21 04:02] LABS: Troponin 5 6HR Delta 0.75 ng/L (0-12)
[2021-09-21 04:03] LABS: Alanine Aminotransferase 34 U/L (0-33); Albumin Level 3.3 g/dL (3.5-5.2); Alkaline Phosphatase 222 IU/L (35-105); Blood Urea Nitrogen 18 mg/dL (8-23); Calcium 8.5 mg/dL (8.5-10.5); Carbon Dioxide 23 mmol/L (22-29); Chloride 104 mmol/L (98-107); Creatinine Clr Calc Pharmacy 64.0375; Globulin 2.3 g/dL (1.3-4.6); Glucose 113 mg/dL (65-115); Osmolality Calculated 289 mOsm/kg (285-295); Sodium 138 mmol/L (136-145); Thyroid Stimulating Hormone 12.37 uIU/mL (0.27-4.20); Total Bilirubin 0.8 mg/dL (0.15-1.2); Total Protein 5.6 g/dL (6.6-8.7)
[2021-09-21 04:04] LABS: Anion Gap 15.3 (5-19); Aspartate Amino Transferase 60 U/L (0-32); Potassium 4.3 mmol/L (3.5-5.1)
[2021-09-21] MEDS: regadenoson 0.4 Mg/5 ml Syringe IVP (08:04)
[2021-09-21] MEDS: FUROsemide 10 mg/mL SDV 4mL 40 MG IVP (09:22)
[2021-09-21 09:37] LABS: Hematocrit 27.6 % (37.0-47.0); Hemoglobin 8.4 g/dL (11.5-15.3)
--- NOTE | 2021-09-21 12:36 | PM.MISC ---
Miscellaneous Note Note: Repeat H&H and hemoglobin 8.4 Patient has significant heart failure signs and symptoms Stress test is unremarkable Echo is pending Patient is sitting in a chair Significant edema noted Normal TSH noted Patient is awake and alert No active chest pain No acute shortness of breath Satting well on room air Bilateral breath sounds I did not appreciate rhonchi however crackles present Awake and alert Nonfocal neuro exam Assessment and plan Unstable angina stress test unremarkable, echo is pending Signs of congestive heart failure Acute CHF exacerbation, EF is unknown at this point Patient has history of valve replacement, Valvular A. fib not a candidate of anticoagulation due to GI bleed previous EGD colonoscopy unremarkable as per the patient, patient has also finished pill endoscopy Anemia of chronic disease no active GI bleed H&H stable I will increase the dose of levothyroxine abnormal TSH noted Thrombocytopenia stable 2019 mcg tricuspid valve surgery is done She also pulmonary hypertension history She is full code Cardiac diet
--- NOTE | 2021-09-21 13:03 | PC.CHAP ---
Pastoral Care Encounter/Spiritual Assessment Type of Contact [] Declined regional facilities specialist visit [] Patient/Family/Request visit [] Outpatient visit [] Follow-up visit [] Physician referral [] Code/Alert [x] Routine visit [] Staff referral [] Actively dying [] Patient sleeping [] Family support [] [] Out of room [] Palliative care [] [] Receiving care in room [] Pre-surgical visit [] Trauma [] Long length of stay [] ICU visit [] Other: Relational/Emotional Strength [x] Patient feels connected with others/family/visitors/staff [] Distress [] Loneliness/isolation [] Abandonment Spirituality of Patient [x] Person of Reyna [x] Attends Mandaen of their Reyna [x] Believes in Prayer [] Reads Bible or Taoist materials [] There are Spiritual issues to be addressed Body Shop Supervisor Interventions x[] Prayer [x] Active listening []x Non-anxious presence [x] Spiritual/emotional support [] Crisis/trauma care [] Spiritual counseling [] Bereavement support [] Provided bereavement packet [] Provided Bible/devotional materials [] Provided toy/stuffed animal, coloring book to patient or family member [] Provided Communion [] Anointing/[place] [] Salvation [x] Completed spiritual assessment [] Other: Impact on Illness or Injury [] Angry [] Fearful [] Anxious [] Often cries [] Exhaustion [] Unable to work [] Unable to attend islam [] Unable to walk/stand [] Unable to read [] Unable to drive [] Unable to eat/drink [] Unable to sleep [] Unable to be with family [] Patient intubated [] Other: Summary Time spent with patient 15 min
[2021-09-21 13:10] LABS: Free T4 Free Thyroxine 1.84 ng/dL (0.82-1.77)
[2021-09-21] MEDS: ferrous sulfate EC 325 mg Tablet PO (18:35)
[2021-09-21] MEDS: pantoprazole DR 40 mg Tablet PO (18:35)
[2021-09-21] MEDS: bumetanide 0.25 mg/mL SDV 4 mL 1 MG IVP (18:35)
[2021-09-22] VITALS (10 sets, daily range): BP systolic 112–138; BP diastolic 50–75; PULSE 57–71; RESP 15–20; TEMP 36.3–36.9; O2SAT 91–97
[2021-09-22] MEDS: bumetanide 0.25 mg/mL SDV 4 mL 1 MG IVP (00:07)
[2021-09-22] MEDS: levothyroxine 112 mcg Tablet PO (05:32)
[2021-09-22 06:30] LABS: Basophils % 0.4 %; Eosinophils # 0.2 10^3/uL (0.0-0.8); Eosinophils % 3.1 %; Hematocrit 25.7 % (37.0-47.0); Hemoglobin 7.3 g/dL (11.5-15.3); Lymphocytes # 0.8 10^3/uL (0.8-4.8); Lymphocytes % 15.9 %; Mean Corpuscular HGB Conc 28.4 g/dL (30.0-36.0); Mean Corpuscular Hemoglobin 27.5 pg (28.0-34.0); Mean Platelet Volume 11.8 fL (7.4-10.4); Monocytes # 0.6 10^3/uL (0.2-0.9); Monocytes % 12.4 %; Neutrophils # 3.33 10^3/uL (1.8-7.7); Nucleated Red Blood Cells % 0 %; Platelet Count 101 10^3/cmm (130-400); Red Blood Count 2.65 10^6/uL (4.1-5.3); Red Cell Distribution Width 16.2 % (12.1-15.1); White Blood Count 4.9 10^3/uL (4.0-10.0)
[2021-09-22 07:00] LABS: Alanine Aminotransferase 35 U/L (0-33); Albumin Level 3.2 g/dL (3.5-5.2); Alkaline Phosphatase 239 IU/L (35-105); Anion Gap 12.7 (5-19); Aspartate Amino Transferase 62 U/L (0-32); Blood Urea Nitrogen 16 mg/dL (8-23); Calcium 8.1 mg/dL (8.5-10.5); Carbon Dioxide 28 mmol/L (22-29); Chloride 106 mmol/L (98-107); Globulin 1.9 g/dL (1.3-4.6); Glucose 131 mg/dL (65-115); Osmolality Calculated 299 mOsm/kg (285-295); Potassium 3.7 mmol/L (3.5-5.1); Sodium 143 mmol/L (136-145); Total Bilirubin 0.6 mg/dL (0.15-1.2); Total Protein 5.1 g/dL (6.6-8.7)
--- NOTE | 2021-09-22 08:17 | USR_ITS ---
PROCEDURE INFORMATION: Exam: US Duplex Lower Extremity Veins, Bilateral Exam date and time: 09/22/2021 8:34 AM Age: 76 years old Clinical indication: Swelling (edema) of limb; Lower extremity, bilateral; Additional info: Swelling b/l TECHNIQUE: Imaging protocol: Real-time Duplex ultrasound of the bilateral extremities with 2-D parisi scale, color Doppler flow and spectral waveform analysis with image documentation. Complete exam focused on the bilateral lower extremity veins. COMPARISON: CT abdomen pelvis wo/w [id number] 04/16/2021 1:36 PM FINDINGS: Right deep veins: Unremarkable. The common femoral, femoral, proximal profunda femoral and popliteal veins are patent without thrombus. Normal Doppler waveforms. Normal compressibility and/or augmentation response. Right superficial veins: Saphenofemoral junction is patent without thrombus. Left deep veins: Unremarkable. The common femoral, femoral, proximal profunda femoral and popliteal veins are patent without thrombus. Normal Doppler waveforms. Normal compressibility and/or augmentation response. Left superficial veins: Saphenofemoral junction is patent without thrombus. Soft tissues: Unremarkable. US/CV venous duplex [facility] [id number] IMPRESSION: No evidence of deep vein thrombosis.
--- NOTE | 2021-09-22 08:18 | CTR_ITS ---
PROCEDURE INFORMATION: Exam: CTA Chest With Contrast Exam date and time: 09/22/2021 9:24 AM Age: 76 years old Clinical indication: Shortness of breath; Prior surgery; Surgery type: Heart; Additional info: Hypoxia TECHNIQUE: Imaging protocol: Computed tomographic angiography of the chest with contrast. 3D rendering (Not supervised by radiologist): MIP and/or 3D reconstructed images were created by the technologist. Radiation optimization: All CT scans at this facility use at least one of these dose optimization techniques: automated exposure control; mA and/or kV adjustment per patient size (includes targeted exams where dose is matched to clinical indication); or iterative reconstruction. Contrast material: OMNI 350; Contrast volume: 70 ml; Contrast route: INTRAVENOUS (IV); COMPARISON: CR (CHEST, ) 09/20/2021 10:24 PM RADIATION DOSE METRICS: Total DLP (mGy-cm): 526.33 FINDINGS: Pulmonary arteries: Enlarged pulmonary arteries, suggestive of pulmonary hypertension. No evidence of filling defect to suggest pulmonary embolus. Aorta: Moderate diffuse atherosclerotic disease is present. No aortic aneurysm. No aortic dissection. Lungs: Streaky bibasilar atelectasis noted, right greater than left. No consolidation. Pleural spaces: Unremarkable. No pneumothorax. No pleural effusion. Heart: Mildly enlarged heart. Coronary atherosclerotic calcifications seen. No pericardial effusion. Lymph nodes: Unremarkable. No enlarged lymph nodes. Diaphragm: A small hiatal hernia is present. Bones/joints: Median sternotomy changes seen. Degenerative changes of the spine seen. Soft tissues: Unremarkable. CT/CT angio chest PE protcl [id number] IMPRESSION: 1. No pulmonary embolus or other acute pathology in the chest. 2. Enlarged pulmonary arteries, suggestive of pulmonary hypertension.
--- NOTE | 2021-09-22 08:19 | CTR_ITS ---
PROCEDURE INFORMATION: Exam: CT Abdomen And Pelvis Without Contrast Exam date and time: 09/22/2021 9:20 AM Age: 76 years old Clinical indication: Other: Ascites TECHNIQUE: Imaging protocol: Computed tomography of the abdomen and pelvis without contrast. Radiation optimization: All CT scans at this facility use at least one of these dose optimization techniques: automated exposure control; mA and/or kV adjustment per patient size (includes targeted exams where dose is matched to clinical indication); or iterative reconstruction. COMPARISON: CT abdomen pelvis wo/w [id number] 04/16/2021 1:36 PM RADIATION DOSE METRICS: Total DLP (mGy-cm): 1228.95 FINDINGS: Heart: Mildly enlarged heart. Coronary atherosclerotic calcifications seen. No pericardial effusion. Diaphragm: A small hiatal hernia is present. Liver: The liver demonstrates volume redistribution and nodular contour, consistent with cirrhosis. No discrete mass lesion seen. Gallbladder and bile ducts: Normal. No calcified stones. No ductal dilation. Pancreas: Normal. No ductal dilation. Spleen: Enlarged spleen measuring 16 cm in AP dimension. Adrenal glands: Normal. No mass. Kidneys and ureters: Normal. No hydronephrosis. Stomach and bowel: There is diverticulosis without evidence of diverticulitis. There is diffuse thickening of the bowel wall, suggestive of portal hypertensive enteropathy. Appendix: No evidence of appendicitis. Intraperitoneal space: A moderate amount of ascites is present. Vasculature: Moderate diffuse atherosclerotic disease is present. Lymph nodes: Unremarkable. No enlarged lymph nodes. Urinary bladder: The urinary bladder is decompressed with a Escobar catheter in place. Reproductive: Unremarkable as visualized. Bones/joints: Degenerative changes of the spine seen. Median sternotomy changes seen. Soft tissues: Unremarkable. CT/CT abdomen pelvis wo con [id number] IMPRESSION: Cirrhotic liver with stigmata of portal hypertension, manifested by ascites, splenomegaly and portal hypertensive enteropathy. Enteritis/colitis should be excluded clinically.
[2021-09-22] MEDS: pantoprazole DR 40 mg Tablet PO (08:53)
[2021-09-22] MEDS: atorvastatin 40 mg Tablet 20 MG PO (08:54)
[2021-09-22] MEDS: ferrous sulfate EC 325 mg Tablet PO ×2 (08:55→17:24)
[2021-09-22] MEDS: amiodarone 200 mg Tablet PO (08:56)
[2021-09-22 09:15] LABS: Tumor Marker Alpha Fetoprotein 5.2 ng/mL (0-8.3)
[2021-09-22] MEDS: iohexol 350 mg/mL 100 mL Btl IV (09:33)
--- NOTE | 2021-09-22 10:36 | P.PN_ITS ---
Subjective Subjective: Patient will be given 1 unit PRBC Ascites with splenomegaly portal hypertension FOBT positive Patient is endorsing improvement in swelling of her legs No active chest pain or shortness of breath Endorsing abdominal distention CT rule out PE Not a candidate of anticoagulation Also showing portal hypertension, pulmonary hypertension EF is preserved Right ventricle is hypokinetic secondary to poor pulmonary hypertension Target hemoglobin above 8 She does carry history of nonalcoholic fatty liver cirrhosis Vitals/I&O/Wt Last Vital Signs Temp 97.4 F L 09/22/21 08:00 Pulse 57 L 09/22/21 08:00 Resp 15 09/22/21 08:00 BP 120/66 09/22/21 08:00 Pulse Ox 91 09/22/21 08:00 09/21/21 09/22/21 09/22/21 22:59 06:59 14:59 Intake Total 120 / 120 560 / 680 Output Total 400 / 400 1450 / 1850 Balance -280 / -280 -890 / -1170 Weight last 48 hrs Weight 81.012 kg Weight 86.591 kg Weight 77.111 kg Physical Exam Narrative: Patient is able to walk Swelling of her legs is improved Pale complexion Abdomen distended Ascites positive Splenomegaly No asterixis Pleasant and cooperative Nonfocal neuro exam Awake and alert Currently on room air No audible stridor or wheezing Urinary Catheter Management: Escobar: Cath Placed During This Visit: yes Reason for Continuing Indwelling Catheter: Accurate Measurement of Urinary Output in Critically Ill Patients Urinary Catheter Date of Insertion: 09/21/21 Urinary Catheter Time of Insertion: 01:44 Data : 09/22/21 06:18 09/22/21 06:18 Micro: Microbiology 09/21/21 21:45 Occult Blood (FIT) - Final Stool Routine Collection A&P Assessment and plan (1) Anemia: Status: Acute (2) Volume overload: Status: Acute (3) Moderate tricuspid regurgitation: Status: Acute (4) Moderate mitral regurgitation: Status: Acute (5) Blood loss anemia: Status: Acute (6) Pulmonary hypertension: Status: Acute (7) Afib: Status: Acute Qualifiers: Atrial fibrillation type: persistent (not longstanding) Qualified Code(s): I48.19 - Other persistent atrial fibrillation (8) Ascites: Status: Acute (9) Chest pain: Status: Acute (10) Splenomegaly: Status: Acute (11) Portal hypertension: Status: Acute Plan Patient presented with chief complaint of chest pain and shortness of breath Her symptoms are related to volume overload Acute preserved ejection fraction congestive heart failure Continue Bumex 1 mg daily instead of twice a day Potassium repleted Right ventricle hypokinesia does carry a guarded prognosis, likely etiology is pulmonary hypertension, no signs of PE on CTA chest Nonalcoholic liver cirrhosis Ascites positive Splenomegaly Requested therapeutic and diagnostic paracentesis No signs of SBP Afebrile Nontender abdomen Pulmonary hypertension, portal hypertension No signs of kidney failure Chest pain: Stress test not consistent with coronary ischemia Acute on chronic normal Citic anemia My concern is related to liver cirrhosis splenomegaly and portal hypertension We will give her 1 unit PRBC FOBT positive patient had extensive GI work-up in [place], will request records She does carry a guarded prognosis Will be discussed goals of care Daughter at the bedside Patient is full code Cardiac diet Changed to inpatient Attestations Medical Necessity Statement*: Continue medical management Time Spent in Patient Care: 30 Coding Level of Care Code Acute Stock Broker Supervisor for Chg Fwd Diagnoses Anemia D64.9 Volume overload E87.70 Moderate tricuspid regurgitation I07.1 Moderate mitral regurgitation I34.0 Blood loss anemia D50.0 Pulmonary hypertension I27.20 Afib I48.19 Atrial fibrillation type: persistent (not longstanding) Ascites R18.8 Chest pain R07.9 Splenomegaly R16.1 Portal hypertension K76.6
[2021-09-22 10:44] LABS: Hematocrit 26.3 % (37.0-47.0); Hemoglobin 8.2 g/dL (11.5-15.3)
[2021-09-22 11:12] LABS: Ferritin 37 ng/mL (15-150); Iron 21 ug/dL (37-145); Percent Saturation 6.7 % (20-50); Total Iron Binding Capacity 309 mcg/dl; Unsaturated Iron Binding 288 ug/dL (112-347)
[2021-09-22 11:27] LABS: Vitamin B12 1032 pg/mL (232-1245)
[2021-09-22 11:28] LABS: D Dimer 5.65 ug/mIFEU (0-0.59)
[2021-09-22 11:42] LABS: Glucose Point of Care 315 mg/dL (70-110)
[2021-09-22] MEDS: pantoprazole 40 mg SDV IVP ×2 (12:39→21:14)
[2021-09-22] MEDS: potassium chloride ER 20 mEq Tablet 40 MEQ PO (12:39)
[2021-09-22] MEDS: sodium chloride 0.9% (100 ml) 100 ML 10 ML ×2 (14:51→14:59)
[2021-09-22] MEDS: acetaminophen 325 mg Tablet 650 MG PO (15:05)
[2021-09-22 16:57] LABS: Glucose Point of Care 150 mg/dL (70-110)
[2021-09-22] MEDS: insulin lispro 100 unit/1 mL SUBCUT (17:23)
[2021-09-22 20:52] LABS: Glucose Point of Care 165 mg/dL (70-110)
[2021-09-23] VITALS: BP 114/61; PULSE 56; RESP 18; TEMP 36.7; O2SAT 92
[2021-09-23 04:00] VITALS: BP 128/58; PULSE 49; RESP 17; TEMP 36.5; O2SAT 91
[2021-09-23 04:41] LABS: Basophils % 0.4 %; Eosinophils # 0.3 10^3/uL (0.0-0.8); Eosinophils % 5.2 %; Hematocrit 26.7 % (37.0-47.0); Hemoglobin 8.4 g/dL (11.5-15.3); Lymphocytes # 0.8 10^3/uL (0.8-4.8); Lymphocytes % 15.1 %; Mean Corpuscular HGB Conc 31.5 g/dL (30.0-36.0); Monocytes # 0.5 10^3/uL (0.2-0.9); Monocytes % 10.8 %; Neutrophils # 3.39 10^3/uL (1.8-7.7); Neutrophils % 68.1 %; Nucleated Red Blood Cells % 0 %; Platelet Count 114 10^3/cmm (130-400); Red Cell Distribution Width 16.4 % (12.1-15.1)
[2021-09-23 05:09] LABS: Alanine Aminotransferase 37 U/L (0-33); Albumin Level 3.2 g/dL (3.5-5.2); Alkaline Phosphatase 263 IU/L (35-105); Anion Gap 13.4 (5-19); Aspartate Amino Transferase 71 U/L (0-32); Blood Urea Nitrogen 16 mg/dL (8-23); Calcium 8.3 mg/dL (8.5-10.5); Carbon Dioxide 26 mmol/L (22-29); Chloride 105 mmol/L (98-107); Globulin 2.3 g/dL (1.3-4.6); Glucose 122 mg/dL (65-115); Lactate Dehydrogenase 245 U/L (135-214); Osmolality Calculated 294 mOsm/kg (285-295); Potassium 3.4 mmol/L (3.5-5.1); Sodium 141 mmol/L (136-145); Total Bilirubin 0.9 mg/dL (0.15-1.2); Total Protein 5.5 g/dL (6.6-8.7)
[2021-09-23] MEDS: levothyroxine 112 mcg Tablet PO (05:56)
[2021-09-23 06:12] LABS: Glucose Point of Care 134 mg/dL (70-110)
[2021-09-23 08:00] VITALS: BP 148/60; PULSE 55; RESP 12; TEMP 36.8; O2SAT 93
[2021-09-23] MEDS: potassium chloride ER 20 mEq Tablet 40 MEQ PO (09:24)
[2021-09-23] MEDS: atorvastatin 40 mg Tablet 20 MG PO (09:24)
[2021-09-23] MEDS: ferrous sulfate EC 325 mg Tablet PO ×2 (09:25→17:54)
[2021-09-23] MEDS: bumetanide 0.25 mg/mL SDV 4 mL 1 MG IVP (09:25)
--- NOTE | 2021-09-23 10:23 | PM.PN ---
Subjective Subjective: This morning I had detailed discussion regarding liver cirrhosis, portal hypertension, ascites, right ventricle hypokinesia, pulmonary hypertension, indication for right and left heart cardiac catheterization, Patient was not able to sleep because of her uncomfortable bed last night No active chest pain or shortness of breath Edema of legs has improved Daughter at the bedside I spoke with the patient, her daughter and her other daughter who is a nurse at [employer] [facility] [employer] [facility] [employer] I did tell them clearly that I am not sure whether at this point biofuels manager would pursue any liver transplant evaluation because of her right ventricle hypokinesia and pulm hypertension but it would be worthwhile to have their assessment and evaluation, patient is stating that she was not sure about her end-stage liver cirrhosis, I did also tell them that at this point the cause of pulmonary hypertension is unknown, as per the daughter she was diagnosed with COPD but never required any oxygen in the past, Secondary to right ventricular hypokinesia in case of any indication for intubation should be considered high risk for any cardiac event All of their questions were answered to the satisfaction Vitals/I&O/Wt Last Vital Signs Temp 98.3 F 09/23/21 08:00 Pulse 55 L 09/23/21 08:00 Resp 12 09/23/21 08:00 BP 148/60 09/23/21 08:00 Pulse Ox 93 09/23/21 08:00 09/22/21 09/23/21 09/23/21 22:59 06:59 14:59 Intake Total 690 / 691.333 940 / 1631.333 360 / 360 Output Total 550 / 550 250 / 800 Balance 140 / 141.333 690 / 831.333 360 / 360 Weight last 48 hrs Weight 81.556 kg Weight 81.012 kg Physical Exam Narrative: Patient is laying supine Orthopnea PND No audible stridor or wheezing Swelling of legs has improved Escobar catheter draining concentrated urine S1, S2 Ascites Nontender Patient is awake and alert No asterixis Family at the bedside Urinary Catheter Management: Escobar: Cath Placed During This Visit: yes Reason for Continuing Indwelling Catheter: Accurate Measurement of Urinary Output in Critically Ill Patients Urinary Catheter Date of Insertion: 09/21/21 Urinary Catheter Time of Insertion: 01:44 Data : 09/23/21 03:17 09/23/21 03:17 A&P Assessment and plan (1) Portal hypertension: Status: Acute (2) Splenomegaly: Status: Acute (3) Ascites: Status: Acute (4) Chest pressure: Status: Acute (5) Chest pain: Status: Acute (6) Anemia: Status: Acute (7) Volume overload: Status: Acute (8) Moderate tricuspid regurgitation: Status: Acute (9) Moderate mitral regurgitation: Status: Acute (10) Blood loss anemia: Status: Acute (11) GI bleed: Status: Acute Qualifiers: GI bleed type/associated pathology: unspecified gastrointestinal hemorrhage type Qualified Code(s): K92.2 - Gastrointestinal hemorrhage, unspecified (12) Pulmonary hypertension: Status: Acute (13) Afib: Status: Acute Qualifiers: Atrial fibrillation type: persistent (not longstanding) Qualified Code(s): I48.19 - Other persistent atrial fibrillation (14) Right ventricular dilation: Status: Acute Plan Volume overload Multifactorial Diastolic heart failure Liver cirrhosis Responding well to diuretics [place] Check ammonia level, Lactulose Abdomen is nontender Plan for paracentesis on Friday Check AFP level Preserve ejection fraction heart failure exacerbation Right ventricular hypokinesia She is considered high risk for any kind of surgical intervention Acute on chronic anemia Normocytic anemia My concern is related to slow bleed secondary to portal hypertension Status post 1 unit PRBC Hemoglobin stable Abnormal liver enzymes related to [place], liver cirrhosis: Trending down LDH 245 Bilirubin is not high 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 fib: Amiodarone on hold Full code Cardiac diet DVT prophylaxis contraindicated SCDs Discharge on Friday Referral to [facility] biofuels manager and pulmonary hypertension clinic Attestations Medical Necessity Statement*: Plan to discharge her after paracentesis on Friday Time Spent in Patient Care: 30 Coding Level of Care Code Acute Application Integration Engineer for Chg Fwd Diagnoses Portal hypertension K76.6 Splenomegaly R16.1 Ascites R18.8 Chest pressure R07.89 Chest pain R07.9 Anemia D64.9 Volume overload E87.70 Moderate tricuspid regurgitation I07.1 Moderate mitral regurgitation I34.0 Blood loss anemia D50.0 GI bleed K92.2 GI bleed type/associated pathology: unspecified gastrointestinal hemorrhage type Pulmonary hypertension I27.20 Afib I48.19 Atrial fibrillation type: persistent (not longstanding) Right ventricular dilation I51.7
[2021-09-23 11:09] LABS: Glucose Point of Care 206 mg/dL (70-110)
[2021-09-23 11:32] VITALS: BP 148/75; PULSE 61; RESP 16; TEMP 36.7; O2SAT 92
[2021-09-23] MEDS: insulin lispro 100 unit/1 mL SUBCUT ×2 (11:53→17:53)
[2021-09-23] MEDS: potassium chloride ER 20 mEq Tablet PO (11:53)
[2021-09-23] MEDS: pantoprazole 40 mg SDV IVP ×2 (11:53→22:01)
[2021-09-23 12:47] LABS: Ammonia 65 umol/L (11-51)
[2021-09-23 15:41] VITALS: BP 136/68; PULSE 64; RESP 16; TEMP 36.8; O2SAT 97
[2021-09-23 17:18] LABS: Glucose Point of Care 153 mg/dL (70-110)
[2021-09-23 20:00] VITALS: BP 169/78; PULSE 66; RESP 18; TEMP 36.7; O2SAT 96
[2021-09-23 22:02] LABS: Glucose Point of Care 163 mg/dL (70-110)
[2021-09-24] VITALS: BP 130/47; PULSE 60; RESP 18; TEMP 36.7; O2SAT 93
[2021-09-24 04:00] VITALS: BP 148/68; PULSE 62; RESP 18; TEMP 36.5; O2SAT 92
[2021-09-24 04:47] LABS: Basophils % 0.3 %; Eosinophils # 0.3 10^3/uL (0.0-0.8); Eosinophils % 4.5 %; Hematocrit 28.2 % (37.0-47.0); Hemoglobin 8.7 g/dL (11.5-15.3); Lymphocytes # 0.8 10^3/uL (0.8-4.8); Lymphocytes % 12.3 %; Mean Corpuscular HGB Conc 30.9 g/dL (30.0-36.0); Mean Corpuscular Hemoglobin 27.6 pg (28.0-34.0); Mean Corpuscular Volume 89.5 fl (81-99); Mean Platelet Volume 12.4 fL (7.4-10.4); Monocytes # 0.7 10^3/uL (0.2-0.9); Monocytes % 10.4 %; Neutrophils # 4.52 10^3/uL (1.8-7.7); Neutrophils % 72.3 %; Nucleated Red Blood Cells % 0 %; Platelet Count 131 10^3/cmm (130-400); Red Blood Count 3.15 10^6/uL (4.1-5.3); Red Cell Distribution Width 16.3 % (12.1-15.1); White Blood Count 6.3 10^3/uL (4.0-10.0)
[2021-09-24 05:14] LABS: Alanine Aminotransferase 36 U/L (0-33); Albumin Level 3.4 g/dL (3.5-5.2); Alkaline Phosphatase 246 IU/L (35-105); Anion Gap 14.3 (5-19); Aspartate Amino Transferase 66 U/L (0-32); Blood Urea Nitrogen 15 mg/dL (8-23); Calcium 8.6 mg/dL (8.5-10.5); Carbon Dioxide 25 mmol/L (22-29); Chloride 105 mmol/L (98-107); Globulin 2.4 g/dL (1.3-4.6); Glucose 152 mg/dL (65-115); Osmolality Calculated 294 mOsm/kg (285-295); Potassium 4.3 mmol/L (3.5-5.1); Sodium 140 mmol/L (136-145); Total Bilirubin 0.8 mg/dL (0.15-1.2); Total Protein 5.8 g/dL (6.6-8.7)
[2021-09-24] MEDS: levothyroxine 112 mcg Tablet PO (05:35)
[2021-09-24 06:44] LABS: Glucose Point of Care 134 mg/dL (70-110)
[2021-09-24 07:59] VITALS: BP 162/74; PULSE 71; RESP 15; TEMP 36.8; O2SAT 96
--- NOTE | 2021-09-24 08:00 | US_ITS ---
WS: [id number] ULTRASOUND-GUIDED PARACENTESIS CLINICAL INFORMATION: therapeutic and diagnostic COMPARISON: None. Procedure Informed consent: The risks, benefits, and alternatives of the procedure were discussed with the lanre ent. Verbal and written consent was obtained. Timeout: A timeout was performed to confirm the correct patient, procedure, and site. Preparation: A suitable skin site was identified. The patient was prepped and draped in usual sterile fashion. Lidocaine 1% was used for local anesthesia. Catheter: 4 Nigerien One-step Yueh catheter. Side: RIGHT Lower quadrant. Fluid Volume: 5400 ml Color: Clear yellow DISPOSITION: 50 cc sent to the laboratory for further analysis. Complications: None. US/US paracentesis abd w [id number] IMPRESSION: Uncomplicated ultrasound-guided paracentesis. Removal of 5400 cc
[2021-09-24] MEDS: ferrous sulfate EC 325 mg Tablet PO (09:41)
[2021-09-24] MEDS: FUROsemide 40 mg Tablet PO (09:41)
[2021-09-24] MEDS: potassium chloride ER 20 mEq Tablet 40 MEQ PO (09:42)
[2021-09-24] MEDS: atorvastatin 40 mg Tablet 20 MG PO (09:42)
[2021-09-24 10:11] LABS: INR 1.07 (0.8-1.2)
[2021-09-24 10:12] LABS: Partial Thromboplastin Time 36.5 SECONDS (23.9-36.7)
[2021-09-24 11:28] LABS: Glucose Point of Care 158 mg/dL (70-110)
[2021-09-24 11:29] LABS: Cyto Order Verification No Order
[2021-09-24 11:31] LABS: Color, Peritoneal Fluid Pale Yellow (Pale Yellow)
[2021-09-24 11:38] LABS: Mononuclear #, Pertinoneal Fl 0.256 10^3/uL; Polynuclear # Cells, Perit 0.026 10^3/uL
[2021-09-24 11:41] LABS: RBC Pertioneal Fluid 0 10^3/uL; WBC Peritoneal Fluid 282 /uL
[2021-09-24 11:52] LABS: Appearance, Peritoneal Fluid Clear (Clear)
[2021-09-24 11:57] LABS: Pathology Referral Yes
[2021-09-24 12:00] VITALS: BP 146/70; PULSE 91; RESP 16; TEMP 36.7; O2SAT 96
--- NOTE | 2021-09-24 12:05 | PM.DCS ---
Discharge Providers Date of Admission: 09/22/21 09:57 Date of Discharge: September 24, 2021 Attending Provider at Admission: Stefan Lopez Attending Provider at Discharge: Iván Dougherty MD Primary Care Provider: Cori Lane MD Diagnoses at Discharge Discharge Diagnosis (1) Portal hypertension: Status: Acute (2) Splenomegaly: Status: Acute (3) Ascites: Status: Acute (4) Chest pressure: Status: Acute (5) Chest pain: Status: Acute (6) Anemia: Status: Acute (7) Volume overload: Status: Acute (8) Moderate tricuspid regurgitation: Status: Acute (9) Moderate mitral regurgitation: Status: Acute (10) Blood loss anemia: Status: Acute Permanent problem details: Hemoglobin is stabilized. Gastritis noted on EGD. Patient taken off Coumadin, aspirin (11) GI bleed: Status: Acute Qualifiers: GI bleed type/associated pathology: unspecified gastrointestinal hemorrhage type Qualified Code(s): K92.2 - Gastrointestinal hemorrhage, unspecified (12) Pulmonary hypertension: Status: Acute (13) Afib: Status: Acute Qualifiers: Atrial fibrillation type: persistent (not longstanding) Qualified Code(s): I48.19 - Other persistent atrial fibrillation (14) Right ventricular dilation: Status: Acute Reason for Visit Reason for Visit: chest pain/abnormal feeling Hospital Course Hospital Course 76-year-old female who was admitted to the hospital for chief complaint of worsening shortness of breath, orthopnea and PND she was diagnosed with acute onset of congestive heart failure, echo showed preserved ejection fraction, right ventricle hypokinesia and dilatation, D-dimer was requested which came back high, no signs of DVT or PE on venous Doppler and CTA chest. She never complained of severe chest pain, cardiac stress test was unremarkable. She was diagnosed with moderate pulmonary hypertension. She also has nonalcoholic liver cirrhosis with portal hypertension, splenomegaly, she required 1 unit PRBC for her acute on chronic anemia. She is FOBT positive however she recently finished EGD and colonoscopy at outside hospital. I have given her a referral to see human resources specialist and pulmonary hypertension clinic. I have added spironolactone, Bumex and nadolol reduce the dose of amiodarone. She is not a candidate of anticoagulation for her A. fib. Family has been updated. All questions were answered to the satisfaction. Mild adjustment was made in her levothyroxine dose for her abnormal TSH. Patient remained hemodynamically stable. She is full code for now, high risk for readmissions On the day of discharge 4.2 L drained via paracentesis. No signs of SBP Physical Exam Narrative: Patient was clinically fluid on day of admission has significantly improved Awake and alert Saturating well on room air Abdomen less distended after paracentesis Patient is cooperative, very pleasant with her progress She is full code Variable S1-S2 Urinary Catheter Management: Escobar: Cath Placed During This Visit: yes Reason for Continuing Indwelling Catheter: Accurate Measurement of Urinary Output in Critically Ill Patients Urinary Catheter Date of Insertion: 09/21/21 Urinary Catheter Time of Insertion: 01:44 Discharge Data Studies Completed and Pending Completed Studies During Hospitalization Category Date Time Status CT abdomen pelvis wo con [id number] Routine Cat Scan 09/22/21 08:19 Completed CTA PE [CT angio chest PE protcl [id number]] Routine Cat Scan 09/22/21 08:18 Completed Cardiac Stress Test MIBI [Sestamibi Stress Test Request Exams 09/21/21 00:45 Completed ] Routine XR chest 1V portable [id number] Stat Exams 09/20/21 18:14 Completed NM angie perf SPECT r/s* [id number] Routine Nuc Med 09/21/21 00:46 Completed CV. echo complete* [id number] Routine Ultrasound 09/21/21 00:42 Completed US venous duplex lower extremity bilat [CV venous Ultrasound 09/22/21 08:17 [place] [id number]] Routine Pending at discharge Category Date Time Status Albumin Peritoneal Fluid Routine Lab 09/24/21 10:30 Results Glucose Peritoneal Fluid Routine Lab 09/24/21 10:30 Results LDH Peritoneal Fluid Routine Lab 09/24/21 10:30 Results Peritoneal Fluid Analysis Routine Lab 09/24/21 10:30 Results Total Protein Peritoneal Fluid Routine Lab 09/24/21 10:30 Results pH Peritoneal Fluid Routine Lab 09/24/21 10:30 Results [place] paracentesis [place]d w [id number] Routine Ultrasound 09/24/21 08:00 Taken Radiology Impressions Chest X-Ray 09/20/21 18:14 IMPRESSION: 1. Mild indistinctness of the pulmonary vasculature could represent mild pulmonary edema. 2. Stable mild cardiomegaly and prominence of the right atrium. 3. Mitral valve annulus present. Venous Duplex 09/22/21 08:17 IMPRESSION: No evidence of deep vein thrombosis. Chest CTA 09/22/21 08:18 IMPRESSION: 1. No pulmonary embolus or other acute pathology in the chest. 2. Enlarged pulmonary arteries, suggestive of pulmonary hypertension. Abdomen/Pelvis CT 09/22/21 08:19 IMPRESSION: Cirrhotic liver with stigmata of portal hypertension, manifested by ascites, splenomegaly and portal hypertensive enteropathy. Enteritis/colitis should be excluded clinically. Laboratory Results WBC 6.3 10^3/uL (4.0-10.0) 09/24/21 03:30 RBC 3.15 10^6/uL (4.1-5.3) L 09/24/21 03:30 Hgb 8.7 g/dL (11.5-15.3) L 09/24/21 03:30 Hct 28.2 % (37.0-47.0) L 09/24/21 03:30 MCV 89.5 fl (81-99) 09/24/21 03:30 MCH 27.6 pg (28.0-34.0) L 09/24/21 03:30 MCHC 30.9 g/dL (30.0-36.0) 09/24/21 03:30 RDW 16.3 % (12.1-15.1) H 09/24/21 03:30 Plt Count 131 10^3/cmm (130-400) 09/24/21 03:30 MPV 12.4 fL (7.4-10.4) H 09/24/21 03:30 Neut % (Auto) 72.3 % 09/24/21 03:30 Lymph % (Auto) 12.3 % 09/24/21 03:30 [place] % (Auto) 10.4 % 09/24/21 03:30 Eos % (Auto) 4.5 % 09/24/21 03:30 Baso % (Auto) 0.3 % 09/24/21 03:30 Reticulocyte % (Auto) 3.2 % (0.5-2.0) H 09/20/21 22:43 Neut # (Auto) 4.52 10^3/uL (1.8-7.7) 09/24/21 03:30 Lymph # (Auto) 0.8 10^3/uL (0.8-4.8) 09/24/21 03:30 [place] # (Auto) 0.7 10^3/uL (0.2-0.9) 09/24/21 03:30 Eos # (Auto) 0.3 10^3/uL (0.0-0.8) 09/24/21 03:30 Baso # (Auto) 0.0 10^3/uL (0.0-0.1) 09/24/21 03:30 Nucleated RBC % (auto) 0 % 09/24/21 03:30 Nucleated RBCs # 0.0 /100WBC 09/24/21 03:30 Retic Production Index 2.15 09/20/21 22:43 PT 14.20 SECONDS (12.1-14.9) 09/24/21 09:46 INR 1.07 (0.8-1.2) 09/24/21 09:46 APTT 36.5 SECONDS (23.9-36.7) 09/24/21 09:46 D-Dimer 5.65 ug/mIFEU (0-0.59) H 09/22/21 10:02 Sodium 140 mmol/L (136-145) 09/24/21 03:30 Potassium 4.3 mmol/L (3.5-5.1) 09/24/21 03:30 Chloride 105 mmol/L (98-107) 09/24/21 03:30 Carbon Dioxide 25 mmol/L (22-29) 09/24/21 03:30 Anion Gap 14.3 (5-19) 09/24/21 03:30 BUN 15 mg/dL (8-23) 09/24/21 03:30 Creatinine 0.7 mg/dL (0.5-0.9) 09/24/21 03:30 GFR Calculation Not Reportable 09/24/21 03:30 Glucose 152 mg/dL (65-115) H 09/24/21 03:30 POC Glucose 158 mg/dL (70-110) H 09/24/21 11:18 Calculated Osmolality 294 mOsm/kg (285-295) 09/24/21 03:30 Calcium 8.6 mg/dL (8.5-10.5) 09/24/21 03:30 Iron 21 ug/dL (37-145) L 09/22/21 06:18 TIBC 309 mcg/dl 09/22/21 06:18 % Saturation 6.7 % (20-50) L 09/22/21 06:18 Unsat Iron Binding 288 ug/dL (112-347) 09/22/21 06:18 Ferritin 37 ng/mL (15-150) 09/22/21 06:18 Total Bilirubin 0.8 mg/dL (0.15-1.2) 09/24/21 03:30 AST 66 U/L (0-32) H 09/24/21 03:30 ALT 36 U/L (0-33) H 09/24/21 03:30 Alkaline Phosphatase 246 IU/L (35-105) H 09/24/21 03:30 Ammonia 65 umol/L (11-51) H 09/23/21 12:22 Lactate Dehydrogenase 245 U/L (135-214) H 09/23/21 03:17 Troponin T Baseline 20 ng/L (0-10) H 09/20/21 21:22 Troponin T 120 Minute 19.09 ng/L (0-10) H 09/20/21 22:43 Delta Troponin T -0.91 ABS# (0-10) L 09/20/21 22:43 Troponin T Hi Sens 6Hr 20.75 ng/L (0-10) H 09/21/21 03:26 Troponin T Hi Sens 6Hr Delta 0.75 ng/L (0-12) 09/21/21 03:26 NT-Pro-B Natriuret Pep 1390 pg/mL (0-450) H 09/20/21 21:22 Total Protein 5.8 g/dL (6.6-8.7) L 09/24/21 03:30 Albumin 3.4 g/dL (3.5-5.2) L 09/24/21 03:30 Globulin 2.4 g/dL (1.3-4.6) 09/24/21 03:30 Tumor Marker AFP 5.2 ng/mL (0-8.3) 09/22/21 06:18 Vitamin B12 1032 pg/mL (232-1245) 09/22/21 06:18 TSH 12.37 uIU/mL (0.27-4.20) H 09/21/21 03:26 TSH Cancelled 09/21/21 03:26 Free T4 1.84 ng/dL (0.82-1.77) H 09/21/21 03:26 Peritoneal Color Pale yellow (Pale Yellow) 09/24/21 10:30 Peritoneal Appearance Clear (Clear) 09/24/21 10:30 Peritoneal pH 8.0 09/24/21 10:30 Peritoneal WBC 282 /uL 09/24/21 10:30 Peritoneal RBC 0 10^3/uL 09/24/21 10:30 Periton Mononu # Auto 0.256 10^3/uL 09/24/21 10:30 Mononuclear WBCs % 90.800 % 09/24/21 10:30 Polynuclear WBCs % 9.200 % 09/24/21 10:30 Perit Polynuc WBCs # 0.026 10^3/uL 09/24/21 10:30 Peritoneal Diff Commnt Yes 09/24/21 10:30 Blood Type O Positive 09/22/21 09:57 Rho(D) Type Positive 09/22/21 09:57 Antibody Screen Negative 09/22/21 09:57 Crossmatch See Detail 09/22/21 09:57 Vitals Last Vital Signs Temp 98.2 F 09/24/21 07:59 Pulse 71 09/24/21 07:59 Resp 15 09/24/21 07:59 BP 162/74 09/24/21 07:59 Pulse Ox 96 09/24/21 07:59 Discharge Plan Discharge Patient Disposition: Home Condition: Stable Prescriptions: New nadolol 20 mg tablet 20 mg PO DAILY 30 Days Qty: 30 0RF spironolactone 50 mg tablet 25 mg PO DAILY Qty: 30 2RF bumetanide 1 mg tablet 1 mg PO DAILY Qty: 60 2RF Continued pantoprazole 40 mg tablet,delayed release (DR/EC) 40 mg PO BID 0RF albuterol sulfate 90 mcg/actuation aerosol powdr breath activated 2 inh INHALATION Q6H PRN (Reason: Shortness Of Breath) 0RF ferrous sulfate 325 mg (65 mg iron) tablet 325 mg PO BID 0RF metformin 500 mg Tablet Extended Release 24 Hr 500 mg PO BID 0RF potassium chloride 20 mEq tablet extended release 10 - 20 meq PO BID PRN (Reason: Edema) Qty: 60 0RF Changed amiodarone 400 mg tablet 200 mg PO DAILY Qty: 90 3RF levothyroxine 88 mcg Tablet 112 mcg PO DAILY Qty: 0 0RF Discontinued pravastatin 40 mg tablet 40 mg PO DAILY 0RF furosemide 40 mg tablet 20 - 40 mg PO DAILY PRN (Reason: Edema) 0RF amlodipine 10 mg tablet 10 mg PO DAILY 0RF aspirin [Adult Low Dose Aspirin] 81 mg tablet,delayed release (DR/EC) 81 mg PO DAILY 0RF Discharge Orders: Discharge Order (Routine); Ordered 09/24/21 Ordered By: Iván Dougherty Referrals: Cori Lane MD [Primary Care Provider] - (Clinic will call the patient to set up an appointment. ) Junior North MD [Referring] - 2 weeks Nicolas Miller MD [Referring] - 2 weeks Discharge Diet: Cardiac Discharge Activity: Limit activity as instructed Patient Instructions: Opioid Safety Activity Restrictions/Additional Instructions: You have been diagnosed with severe portal hypertension secondary to liver cirrhosis That most likely is the cause of slow bleed as well Do not take aspirin For paracentesis for 5.2 L were removed, you are at risk of reaccumulation, you need to see human resources specialist at [facility] if you would benefit from any procedures such as TIPS versus liver transplant evaluation You also have right ventricle dilation there is no sign of pulmonary embolism or clot in your legs Most likely causes pulmonary hypertension and I am giving you referral for pulmonary hypertension clinic at [facility] as well For your congestive heart failure your EF is preserved 55 to 60%, moderate pulmonary hypertension Discharge Attestations Time Spent in Discharge Care*: less than 30 min Quality Metrics Clinical Quality Measures [ No reported AMI, CVA or VTE this stay] Coding Level of Care Code Acute Chg FW DC note Diagnoses Portal hypertension K76.6 Splenomegaly R16.1 Ascites R18.8 Chest pressure R07.89 Chest pain R07.9 Anemia D64.9 Volume overload E87.70 Moderate tricuspid regurgitation I07.1 Moderate mitral regurgitation I34.0 Blood loss anemia D50.0 GI bleed K92.2 GI bleed type/associated pathology: unspecified gastrointestinal hemorrhage type Pulmonary hypertension I27.20 Afib I48.19 Atrial fibrillation type: persistent (not longstanding) Right ventricular dilation I51.7
[2021-09-24 12:16] LABS: Albumin Peritoneal Fluid 0.7 g/dL
[2021-09-24 12:17] VITALS: BP 162/74; PULSE 71; RESP 15; TEMP 36.8; O2SAT 96
== END 2021-09-24 12:45 | disposition home or self-care (01) | DRG 292 ==
LOC: ER 22:26 → MEDSURG 22:41
PROVIDERS: Admitting Provider Internal Medicine; Emergency Provider Emergency Medicine; PCP Family Medicine; Visit Provider Internal Medicine
DX: I50.31 Acute diastolic (congestive) heart failure (principal); I48.19 Other persistent atrial fibrillation; R18.8 Other ascites; K76.6 Portal hypertension; D50.0 Iron deficiency anemia secondary to blood loss (chronic); E11.9 Type 2 diabetes mellitus without complications; I08.1 Rheumatic disorders of both mitral and tricuspid valves; I27.20 Pulmonary hypertension, unspecified; Z87.891 Personal history of nicotine dependence; Z95.2 Presence of prosthetic heart valve; D69.6 Thrombocytopenia, unspecified; R16.1 Splenomegaly, not elsewhere classified; K74.60 Unspecified cirrhosis of liver; E03.9 Hypothyroidism, unspecified; Z79.84 Long term (current) use of oral hypoglycemic drugs; Z79.51 Long term (current) use of inhaled steroids; K29.70 Gastritis, unspecified, without bleeding
CPT/HCPCS: 36415; 36416; 36430; 49083; 51702; 71045; 71275; 74176; 78452; 80048; 80053; 80503; 82042; 82105; 82140; 82274; 82607; 82728; 82945; 82962; 83540; 83550; 83615; 83880; 83986; 84157; 84439; 84443; 84484; 85014; 85018; 85025; 85045; 85378; 85610; 85730; 86850; 86900; 86920; 89050; 93005; 93017; 93306; 93970; 96372; 96374; 97116; 97162; 99285; A9500; C9113; G0378; J1644; J1815; J1940; J2270; J2785; J3490; P9016; Q9967

== ENCOUNTER 2021-10-06 18:43 | Inpatient (IN) | payer MEDICARE, MEDICAID, SELFPAY ==
[2021-10-06] VITALS (9 sets, daily range): BP systolic 105–138; BP diastolic 41–102; PULSE 31–36; RESP 15–24; TEMP 36.8–37; O2SAT 87–95; BMI 25.3
--- NOTE | 2021-10-06 18:57 | ECG_ITS ---
[facility] Test Date: 2021-10-06 Pat Name: Dawn Henao Department: Room: ICU02 Gender: Female Costume Cutter: : 1945 Requested By: Malik Ladd Order Number: [id number] Collins MD: Mckenzie Scott M.D. Measurements Intervals [place] Rate: 80 P: 170 TX: 284 QRS: 157 QRSD: 189 T: 4 QT: 510 QTc: 589 Interpretive Statements Supraventricular rhythm RIGHT AXIS DEVIATION [QRS AXIS > 100] RIGHT BUNDLE BRANCH BLOCK [120+ ms QRS DURATION, UPRIGHT V1, 40+ ms S IN I/aVL/V4/V5/V6] SEPTAL MYOCARDIAL INFARCTION , PROBABLY OLD [40+ ms Q WAVE IN V1/V2] Compared to ECG 09/21/2021 05:18:01 First degree AV block now present Myocardial infarct finding now present Atrial fibrillation no longer present Electronically Signed On 10-07-2021 19:00:29 CDT by Mckenzie Scott M.D. [id number]
--- NOTE | 2021-10-06 18:57 | XRR_ITS ---
PROCEDURE INFORMATION: Exam: XR Chest Exam date and time: 10/06/2021 7:29 PM Age: 76 years old Clinical indication: Other: Low heart rate, and low blood pressure upon arrival; Prior surgery; Surgery date: 6+ months; Surgery type: 2 cabg, ; additional info: Cp TECHNIQUE: Imaging protocol: Radiologic exam of the chest. Views: 1 view. COMPARISON: CR (CHEST, ) 09/20/2021 10:24 PM FINDINGS: Lungs: No consolidation. Pleural spaces: No pleural effusion. No pneumothorax. Heart/Mediastinum: Similar cardiomegaly. Bones/joints: Sternotomy wires noted. Visualized osseous structures are intact. XR/XR chest 1V portable [id number] IMPRESSION: No acute findings.
--- NOTE | 2021-10-06 19:16 | W.ED.CHESTPA ---
HPI - Chest Pain General: Chief Complaint: Chest Pain Stated Complaint: Low Blood Pressure Time Seen by Provider: 10/06/21 18:56 Source: patient and family Mode of arrival: ambulatory Limitations: no limitations History of Present Illness: 76-year-old female who is extensive history including A. fib she is on amiodarone 200 mg daily for her A. fib. States that she recently was admitted and discharged from the hospital 2 weeks ago. States that today she started feeling extremely weak having some slight chest pains as well. States its been a mild pressure type pain when she first arrived here her heart rate was 30 she denies having severe bradycardia in the past. She does have some history of portal hypertension and some hypokinesis to her right ventricular. She denies any shortness of breath denies any fever. Associated symptoms: Deny abdominal pain, dyspnea, fever(s), nausea or vomiting Review of Systems Const: Denies: fever(s), chills, body aches or change in appetite Eyes: Denies: blurry vision or eye discomfort ENMT: Denies: throat pain or dental pain Card: Reports: chest pain Resp: Denies: dyspnea GI: Denies: abdominal pain, nausea, vomiting or diarrhea : Denies: dysuria Musc: Denies: neck pain or back pain Skin/Breast: Denies: rash Neuro: Reports: weakness in extremities Psych: Denies: depression [place]/Lymph: Denies: easy bruising All/Imm: Denies: urticaria PFS ED PFSH: Medical History Afib Chronic atrial fibrillation Congenital heart disease Diabetes GI bleed Moderate mitral regurgitation Moderate tricuspid regurgitation Pulmonary hypertension Type 2 diabetes mellitus Surgical History Hx of cataract surgery S/P atrial septal defect closure, surgical Family History Father Cancer Brother Cancer Grandmother CAD (coronary artery disease) Denies family history of Diabetes Clotting disorder Dementia Hyperlipidemia Psychiatric illness Chronic kidney disease (CKD) Suicide Anesthesia complication Bleeding disorder Family history of premature coronary artery disease Lung disease Hypertension Stroke Social History (Reviewed 09/21/21 @ 00:35 by ROSALIND Thurston Smoking and tobacco status: former smoker Second hand smoke exposure: No Alcohol intake: never Physical Exam Const: COMMON NORMALS: patient oriented x3 and healthy appearing GENERAL APPEARANCE: frail appearing HENMT: COMMON NORMALS: normocephalic and atraumatic HEAD & SCALP: normocephalic and atraumatic Eye: COMMON NORMALS: Equal, round and reactive pupils present and EOMs intact bilaterally PUPIL: Yes Equal, round and reactive pupils present Neck/C-Spine: COMMON NORMALS: full ROM and supple Chest: COMMONS NORMALS: normal inspection of the chest and normal palpation of entire chest wall Resp: COMMON NORMALS: normal respiratory effort, No retractions, No use of accessory muscles and clear to auscultation bilaterally AUSCULTATION: clear to auscultation bilaterally Cardio: COMMON NORMALS: regular rhythm and No murmurs present (Cardio) RATE: bradycardic RHYTHM: regular rhythm GI: COMMON NORMALS: Normal to inspection, nondistended, normoactive bowel sounds present, Soft to palpation, non-tender and no masses PALPATION: Yes Soft to palpation Extremity: COMMON NORMALS: normal to inspection and full ROM Neuro: COMMON NORMALS: patient oriented x3, moves all extremities and no focal motor deficits Psych: COMMON NORMALS: mental status grossly normal, Normal thought process present and cooperative THOUGHT PROCESS: Normal thought process present Skin: COMMON NORMALS: no rashes or lesions noted and no wounds GENERAL SKIN EXAM: no rashes or lesions noted Course Vital Signs: Vital signs: Vital Signs Temperature 98.2 F 10/06/21 19:03 Pulse Rate 31 L 10/06/21 19:03 Respiratory Rate 16 10/06/21 19:03 Blood Pressure 105/41 10/06/21 19:03 Pulse Oximetry 95 10/06/21 19:03 Oxygen Delivery Me thod 10/06/21 19:03 MDM - Chest Pain Medical Decision Making Patient presents here with bradycardia could be due to medications her heart rate here has been in the 30s patient was unaffected by atropine spoke to face painter Dr. Scott will start on a dopamine drip admit to the ICU under hospitalist and Dr. Scott is consulted she has been asymptomatic here and has had mild hypotension at times but currently blood pressure is 111/47 Lab Data : 10/06/21 19:05 10/06/21 19:05 Radiology Impressions Chest X-Ray 10/06/21 18:57 IMPRESSION: No acute findings. Laboratory Results WBC 9.6 10^3/uL (4.0-10.0) 10/06/21 19:05 RBC 3.51 10^6/uL (4.1-5.3) L 10/06/21 19:05 Hgb 9.8 g/dL (11.5-15.3) L 10/06/21 19:05 Hct 32.6 % (37.0-47.0) L 10/06/21 19:05 MCV 92.9 fl (81-99) 10/06/21 19:05 MCH 27.9 pg (28.0-34.0) L 10/06/21 19:05 MCHC 30.1 g/dL (30.0-36.0) 10/06/21 19:05 RDW 17.5 % (12.1-15.1) H 10/06/21 19:05 Plt Count 196 10^3/cmm (130-400) 10/06/21 19:05 MPV 11.4 fL (7.4-10.4) H 10/06/21 19:05 Neut % (Auto) 77.4 % 10/06/21 19:05 Lymph % (Auto) 9.1 % 10/06/21 19:05 [place] % (Auto) 11.9 % 10/06/21 19:05 Eos % (Auto) 0.7 % 10/06/21 19:05 Baso % (Auto) 0.5 % 10/06/21 19:05 Neut # (Auto) 7.42 10^3/uL (1.8-7.7) 10/06/21 19:05 Lymph # (Auto) 0.9 10^3/uL (0.8-4.8) 10/06/21 19:05 [place] # (Auto) 1.1 10^3/uL (0.2-0.9) H 10/06/21 19:05 Eos # (Auto) 0.1 10^3/uL (0.0-0.8) 10/06/21 19:05 Baso # (Auto) 0.1 10^3/uL (0.0-0.1) 10/06/21 19:05 Nucleated RBC % (auto) 0 % 10/06/21 19:05 Nucleated RBCs # 0.0 /100WBC 10/06/21 19:05 PT 15.40 SECONDS (12.1-14.9) H 10/06/21 19:05 INR 1.19 (0.8-1.2) 10/06/21 19:05 Sodium 138 mmol/L (136-145) 10/06/21 19:05 Potassium 5.1 mmol/L (3.5-5.1) 10/06/21 19:05 Chloride 101 mmol/L (98-107) 10/06/21 19:05 Carbon Dioxide 22 mmol/L (22-29) 10/06/21 19:05 Anion Gap 20.1 (5-19) H 10/06/21 19:05 BUN 47 mg/dL (8-23) H 10/06/21 19:05 Creatinine 1.8 mg/dL (0.5-0.9) H 10/06/21 19:05 GFR Calculation Not Reportable 10/06/21 19:05 Glucose 148 mg/dL (65-115) H 10/06/21 19:05 Calculated Osmolality 301 mOsm/kg (285-295) H 10/06/21 19:05 Calcium 9.0 mg/dL (8.5-10.5) 10/06/21 19:05 Magnesium 2.4 mg/dL (1.7-2.3) H 10/06/21 19:05 Total Bilirubin 0.6 mg/dL (0.15-1.2) 10/06/21 19:05 AST 79 U/L (0-32) H 10/06/21 19:05 ALT 48 U/L (0-33) H 10/06/21 19:05 Alkaline Phosphatase 324 IU/L (35-105) H 10/06/21 19:05 Troponin T Baseline 54 ng/L (0-10) H 10/06/21 19:05 Troponin T 120 Minute 51.46 ng/L (0-10) H 10/06/21 21:20 Delta Troponin T -2.54 ABS# (0-10) L 10/06/21 21:20 NT-Pro-B Natriuret Pep 5424 pg/mL (0-450) H 10/06/21 19:05 Total Protein 6.1 g/dL (6.6-8.7) L 10/06/21 19:05 Albumin 3.7 g/dL (3.5-5.2) 10/06/21 19:05 Globulin 2.4 g/dL (1.3-4.6) 10/06/21 19:05 TSH 10.64 uIU/mL (0.27-4.20) H 10/06/21 19:05 EKG Data EKG 1: I personally reviewed and interpreted this EKG as follows: EKG interpretation date: 10/06/21 EKG interpretation time: 18:52 Interpretation: teodoro hr [address] or t wave abnormalities qrs 169 qtc 539 EKG 2: I personally reviewed and interpreted this EKG as follows: EKG interpretation date: 10/06/21 EKG interpretation time: 19:22 Interpretation: nsr hr [address] oelevation rbbb qrs 19 qtc 546 Critical Care Time Critical Care Time: Critical Care Time: Yes Total Critical Care Time: 40 Attestation: The high probability of a clinically significant, sudden or life threatening deterioration of the patient's cv system(s) required my full and direct attention, intervention and personal management. The critical care time is as shown. This time is in addition to time spent performing any reported procedures but includes the following: [x] Data and vital sign review and interpretation [x] Patient assessment, examination and intervention [x] Documentation [x] Medication orders and management Discharge Plan Discharge Patient Disposition: Admitted As Inpatient Admit Provider: Khloe Huff Clinical Impression: Bradycardia Condition: Stable Coding Level of Care Code ED Custom Shop Worker for Chg Fwd Exam Comprehensive
[2021-10-06 19:23] LABS: Basophils # 0.1 10^3/uL (0.0-0.1); Basophils % 0.5 %; Eosinophils # 0.1 10^3/uL (0.0-0.8); Eosinophils % 0.7 %; Hematocrit 32.6 % (37.0-47.0); Hemoglobin 9.8 g/dL (11.5-15.3); Lymphocytes # 0.9 10^3/uL (0.8-4.8); Lymphocytes % 9.1 %; Mean Corpuscular HGB Conc 30.1 g/dL (30.0-36.0); Mean Corpuscular Hemoglobin 27.9 pg (28.0-34.0); Mean Corpuscular Volume 92.9 fl (81-99); Mean Platelet Volume 11.4 fL (7.4-10.4); Monocytes # 1.1 10^3/uL (0.2-0.9); Monocytes % 11.9 %; Neutrophils # 7.42 10^3/uL (1.8-7.7); Neutrophils % 77.4 %; Nucleated Red Blood Cells % 0 %; Platelet Count 196 10^3/cmm (130-400); Red Blood Count 3.51 10^6/uL (4.1-5.3); Red Cell Distribution Width 17.5 % (12.1-15.1); White Blood Count 9.6 10^3/uL (4.0-10.0)
[2021-10-06 19:45] LABS: INR 1.19 (0.8-1.2)
[2021-10-06 19:52] LABS: Magnesium 2.4 mg/dL (1.7-2.3); Troponin(5th) Baseline 54 ng/L (0-10)
[2021-10-06 20:00] LABS: Alanine Aminotransferase 48 U/L (0-33); Albumin Level 3.7 g/dL (3.5-5.2); Alkaline Phosphatase 324 IU/L (35-105); Anion Gap 20.1 (5-19); Aspartate Amino Transferase 79 U/L (0-32); Blood Urea Nitrogen 47 mg/dL (8-23); Carbon Dioxide 22 mmol/L (22-29); Chloride 101 mmol/L (98-107); Globulin 2.4 g/dL (1.3-4.6); Glucose 148 mg/dL (65-115); Osmolality Calculated 301 mOsm/kg (285-295); Potassium 5.1 mmol/L (3.5-5.1); Sodium 138 mmol/L (136-145); Thyroid Stimulating Hormone 10.64 uIU/mL (0.27-4.20); Total Bilirubin 0.6 mg/dL (0.15-1.2); Total Protein 6.1 g/dL (6.6-8.7)
[2021-10-06 20:26] LABS: NT Pro B Type Natriuretic Pept 5424 pg/mL (0-450)
[2021-10-06] MEDS: atropine 0.1 mg/mL Syr 10 mL 0.5 MG IVP ×2 (20:38→21:18)
[2021-10-06] MEDS: sodium chloride 0.9% 500 ML 999 ML IV (20:46)
[2021-10-06 21:44] LABS: Troponin 5 2HR 51.46 ng/L (0-10)
[2021-10-06 21:47] LABS: Troponin 5 2HR Delta -2.54 ABS# (0-10)
[2021-10-06] MEDS: DOPamine drip 400 MG/250 ML PREMIX 8.17 MG IV (21:54)
--- NOTE | 2021-10-06 22:28 | ECG_ITS ---
[facility] Test Date: 2021-10-06 Pat Name: Dawn Henao Department: Room: ICU02 Gender: Female Smart Energy Specialist: : 1945 Requested By: Malik Ladd Order Number: [id number] Collins MD: Mckenzie Scott M.D. Measurements Intervals [place] Rate: 34 P: [place]: QRS: 154 QRSD: 174 T: 13 QT: 618 QTc: 467 Interpretive Statements Possible junctional bradycardia RIGHT AXIS DEVIATION [QRS AXIS > 100] RIGHT BUNDLE BRANCH BLOCK [120+ ms QRS DURATION, UPRIGHT V1, 40+ ms S IN I/aVL/V4/V5/V6] PROLONGED QT INTERVAL CRITICAL TEST RESULT Compared to ECG 09/21/2021 05:18:01 Prolonged QT interval now present Atrial fibrillation no longer present Electronically Signed On 10-07-2021 19:08:45 CDT by Mckenzie Scott M.D. [id number]
--- NOTE | 2021-10-06 23:18 | PM.CONSULT ---
Providers/Reason For Consult Consulting Physician/Specialty*: LUCIANA Scott MD/cardiology Reason for Consult*: Patient with symptomatic bradycardia/chronic atrial fibrillation Requesting Physician: Dr. 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 She was found to be bradycardic with a heart rate in the 30s. She was found to have junctional rhythm. She was given IV atropine, total of 2 mg. There was no response. She continued to be bradycardic with some dizziness. Her blood pressure was in the 90s. Because of the ongoing symptoms, in order to further manage her condition, a temporary pacer insertion was requested. Patient has been on amiodarone and nadolol. Recently she was admitted to the hospital with heart failure, elevated liver enzymes, ascites with portal hypertension. At that time, the dose of the amiodarone was cut back to 20 mg p.o. daily. She also was started on nadolol and spironolactone. According the patient, she was having episodes of dizziness and slow heart rate at home. But since this morning, the symptoms are getting worse. She never had any complete loss of consciousness. Review of Systems Narrative: CONSTITUTIONAL: No fever or chills. Generalized weakness/lethargy EYES: No blurring of vision or other visual disturbances lately. ENT: No hoarseness of voice, auditory disturbances or sore throat. CARDIOVASCULAR: As mentioned above. RESPIRATORY: No significant cough. GASTROINTESTINAL: Ascites, nonalcoholic cirrhosis, splenomegaly and GI bleed GENITOURINARY: No dysuria or hematuria. INTEGUMENTARY: No skin rashes or history of skin cancer. NEURO: No transient ischemic attacks or amaurosis. PSYCHIATRIC: No history of psychosis or major depression. HEMATOLOGIC: Chronic anemia ENDOCRINE: Type 2 diabetes MUSCULOSKELETAL: No recent joint pain or swelling. ALLERGY/IMMUNOLOGY: As mentioned above. Medications/Allergies Home Medications Medication Instructions Recorded Confirmed Last Taken Type albuterol sulfate 90 mcg/actuation 2 inh inhalation Q6H PRN Shortness 03/09/21/21 09/20/21 History breath activated powder inhaler Of Breath pantoprazole 40 mg tablet,delayed 40 mg PO BID 05/18/19 09/21/21 09/20/21 History release ferrous sulfate 325 mg (65 mg 325 mg PO BID 08/17/19 09/21/21 09/20/21 History iron) tablet metformin 500 mg tablet,extended 500 mg PO BID 09/21/21 09/21/21 09/20/21 History release 24 hr amiodarone 400 mg tablet 200 mg PO DAILY #90 tabs 09/24/21 09/21/21 09/20/21 Rx bumetanide 1 mg tablet 1 mg PO DAILY #60 tabs 09/24/21 Unknown Rx levothyroxine 88 mcg tablet 112 mcg PO DAILY #0 tabs 09/24/21 09/21/21 09/20/21 Rx nadolol 20 mg tablet 20 mg PO DAILY 30 days #30 tabs 09/24/21 Unknown Rx potassium chloride 20 mEq 10 - 20 meq PO BID PRN Edema #60 09/24/21 09/21/21 09/20/21 Rx tablet,extended release tabs spironolactone 50 mg tablet 25 mg PO DAILY #30 tabs 09/24/21 Unknown Rx Allergies Allergy/AdvReac Type Severity Reaction Status Date / Time No Known Allergies Allergy Unknown Unverified 09/23/19 08:19 Current Medications Generic Name Dose Route Start Last Admin Trade Name Freq PRN Reason Stop Dose Admin Dopamine HCl/Dextrose 400 mg in 250 mls @ 8.165 mls/hr 10/06/21 21:45 10/06/21 21:54 Intropin Drip IV 3 mcg/kg/min CONT SONDRA 8.17 mls/hr Administration Protocol 3 MCG/KG/MIN PFSH Acute PFSH: Medical History (Updated 10/06/21 @ 23:53 by Mckenzie Scott MD) Afib Chronic atrial fibrillation Congenital heart disease Diabetes GI bleed Moderate mitral regurgitation Moderate tricuspid regurgitation Pulmonary hypertension Type 2 diabetes mellitus Surgical History Hx of cataract surgery S/P atrial septal defect closure, surgical Family History Father Cancer Brother Cancer Grandmother CAD (coronary artery disease) Denies family history of Diabetes Clotting disorder Dementia Hyperlipidemia Psychiatric illness Chronic kidney disease (CKD) Suicide Anesthesia complication Bleeding disorder Family history of premature coronary artery disease Lung disease Hypertension Stroke Social History Smoking and tobacco status: former smoker Second hand smoke exposure: No Alcohol intake: never Vitals/I&O/Wt Last Vital Signs Temp 98.2 F 10/06/21 19:03 Pulse 32 L 10/06/21 23:09 Resp 16 10/06/21 23:09 BP 111/47 10/06/21 22:26 Pulse Ox 93 10/06/21 23:09 O2 Del Method 10/06/21 23:09 O2 Flow Rate 2.5 10/06/21 23:09 10/06/21 10/06/21 10/07/21 14:59 22:59 06:59 Intake Total 500 / 500 Balance 500 / 500 Weight last 48 hrs Weight 162 lb Weight 160 lb Physical Exam Narrative: GENERAL: The patient is alert and oriented times three. Not in any acute distress. HEENT: No significant pallor, icterus or lymphadenopathy.Oral cavity: There are no mucous membrane lesions. NECK: Trachea appears to be central. No masses noted. No JVD or thyromegaly appreciated. RESPIRATORY: Chest is symmetrical. No intercostals muscle retraction or any accessory muscle activation. There is no chest wall tenderness. Breath sounds are heard bilaterally. No rales or rhonchi heard. No evidence of any consolidation. BREASTS: Deferred. HEART: Systolic murmur grade 3 or 6 in the left sternal border. No diastolic murmurs. Variable first heart sound. Relatively loud S2 ABDOMEN: No vessel pulsations or distention. No tenderness. Hepatosplenomegaly bowel sounds are normally heard. : Deferred. RECTAL: Deferred. LYMPHATIC: No lymphadenopathy noted in the neck. EXTREMITIES: Trace edema with no cyanosis MUSCULOSKELETAL: No acute joint deformities or swelling SKIN: There are no significant rashes or ecchymosis NEUROPSYCHIATRIC: The patient is alert and oriented x3. Appears to be in a good mood. No tremors or rigidity noted. Somewhat anxious Data : 10/06/21 19:05 10/06/21 19:05 Other Labs: Laboratory Last Values WBC 9.6 10^3/uL (4.0-10.0) 10/06/21 19:05 RBC 3.51 10^6/uL (4.1-5.3) L 10/06/21 19:05 Hgb 9.8 g/dL (11.5-15.3) L 10/06/21 19:05 Hct 32.6 % (37.0-47.0) L 10/06/21 19:05 MCV 92.9 fl (81-99) 10/06/21 19:05 MCH 27.9 pg (28.0-34.0) L 10/06/21 19:05 MCHC 30.1 g/dL (30.0-36.0) 10/06/21 19:05 RDW 17.5 % (12.1-15.1) H 10/06/21 19:05 Plt Count 196 10^3/cmm (130-400) 10/06/21 19:05 MPV 11.4 fL (7.4-10.4) H 10/06/21 19:05 Neut % (Auto) 77.4 % 10/06/21 19:05 Lymph % (Auto) 9.1 % 10/06/21 19:05 [place] % (Auto) 11.9 % 10/06/21 19:05 Eos % (Auto) 0.7 % 10/06/21 19:05 Baso % (Auto) 0.5 % 10/06/21 19:05 Neut # (Auto) 7.42 10^3/uL (1.8-7.7) 10/06/21 19:05 Lymph # (Auto) 0.9 10^3/uL (0.8-4.8) 10/06/21 19:05 [place] # (Auto) 1.1 10^3/uL (0.2-0.9) H 10/06/21 19:05 Eos # (Auto) 0.1 10^3/uL (0.0-0.8) 10/06/21 19:05 Baso # (Auto) 0.1 10^3/uL (0.0-0.1) 10/06/21 19:05 Nucleated RBC % (auto) 0 % 10/06/21 19:05 Nucleated RBCs # 0.0 /100WBC 10/06/21 19:05 PT 15.40 SECONDS (12.1-14.9) H 10/06/21 19:05 INR 1.19 (0.8-1.2) 10/06/21 19:05 Sodium 138 mmol/L (136-145) 10/06/21 19:05 Potassium 5.1 mmol/L (3.5-5.1) 10/06/21 19:05 Chloride 101 mmol/L (98-107) 10/06/21 19:05 Carbon Dioxide 22 mmol/L (22-29) 10/06/21 19:05 Anion Gap 20.1 (5-19) H 10/06/21 19:05 BUN 47 mg/dL (8-23) H 10/06/21 19:05 Creatinine 1.8 mg/dL (0.5-0.9) H 10/06/21 19:05 GFR Calculation Not Reportable 10/06/21 19:05 Glucose 148 mg/dL (65-115) H 10/06/21 19:05 Calculated Osmolality 301 mOsm/kg (285-295) H 10/06/21 19:05 Calcium 9.0 mg/dL (8.5-10.5) 10/06/21 19:05 Magnesium 2.4 mg/dL (1.7-2.3) H 10/06/21 19:05 Total Bilirubin 0.6 mg/dL (0.15-1.2) 10/06/21 19:05 AST 79 U/L (0-32) H 10/06/21 19:05 ALT 48 U/L (0-33) H 10/06/21 19:05 Alkaline Phosphatase 324 IU/L (35-105) H 10/06/21 19:05 Troponin T Baseline 54 ng/L (0-10) H 10/06/21 19:05 Troponin T 120 Minute 51.46 ng/L (0-10) H 10/06/21 21:20 Delta Troponin T -2.54 ABS# (0-10) L 10/06/21 21:20 NT-Pro-B Natriuret Pep 5424 pg/mL (0-450) H 10/06/21 19:05 Total Protein 6.1 g/dL (6.6-8.7) L 10/06/21 19:05 Albumin 3.7 g/dL (3.5-5.2) 10/06/21 19:05 Globulin 2.4 g/dL (1.3-4.6) 10/06/21 19:05 TSH 10.64 uIU/mL (0.27-4.20) H 10/06/21 19:05 EKG 1: My Interpretation: Junctional rhythm with right bundle block pattern. Heart rate of 34 bpm. Right axis deviation. Prolonged QT interval of [address]-T changes EKG computer-generated impression: Chest X-Ray 10/06/21 18:57 IMPRESSION: No acute findings. A&P Assessment and plan (1) Symptomatic bradycardia: For further management of her condition, the patient requires a temporary pacemaker insertion. This was discussed with the patient detail which she understood well and consented to proceed. Status: Acute (2) Right ventricular dilation: Possibly from the disease based on the most recent echocardiogram. Possibly from the pulmonary hypertension. Status: Acute (3) Portal hypertension: Patient is known to have nonalcoholic liver cirrhosis. She is scheduled to seen a pathologist in [place]. Status: Acute (4) Splenomegaly: From the portal hypertension Status: Acute (5) Ascites: patient had a recent paracentesis. Currently seems to be doing okay. Status: Acute (6) Moderate tricuspid regurgitation: Status: Acute (7) Chronic atrial fibrillation: Patient is not on any oral anticoagulation because of the GI bleed Status: Acute Plan Because of the e patient's symptomatic bradycardia, she needs a temporary pacer insertion for further management of the condition. She will be watched on telemetry for 24 to 48 hours. If she returns to the normal heart rate we may discontinue the temporary pacer. Based on the patient's clinical progress, further recommendations will be made. Consult Attestations Medical Necessity Statement: Patient requires continued hospital stay for close monitoring and further management Coding Level of Care Code Acute Multiple Drum Sander Helper for Chg Fwd History Detailed Medical Decision Making High Complexity Diagnoses Symptomatic bradycardia R00.1 Right ventricular dilation I51.7 Portal hypertension K76.6 Splenomegaly R16.1 Ascites R18.8 Moderate tricuspid regurgitation I07.1 Chronic atrial fibrillation I48.20
[2021-10-06 23:41] LABS: INR 1.13 (0.8-1.2)
[2021-10-06 23:45] LABS: Lactic Sepsis W/Reflex 1.4 mmol/L (0.5-2.2)
--- NOTE | 2021-10-06 23:49 | P.HP_ITS ---
Providers/Chief Complaint Admitting Physician: Khloe Huff MD Primary Care Provider: Cori Lane MD Chief Complaint: Low Blood Pressure History of Present Illness Dawn Henao is a 76 year old female with past medical history of moderate tricuspid regurgitation, moderate mitral regurgitation, pulmonary hypertension with right ventricular hypokinesia dilated patient, diabetes, atrial fibrillation, diabetes, chronic congestive heart failure with preserved EF presented to the ER today feeling extremely weak and having some slight chest pain. She described the chest pain as a mild pressure like when she first arrived. EKG was done showing bradycardia. No ST or T wave abnormalities. Heart rate was in the 30s. Patient was taking amiodarone orally for her atrial fibrillation. She was recently discharged from the hospital about 2 weeks ago. Patient was referred to pulmonary hypertension clinic and product technology scientist when discharged last time however she did not go. She did not really specify reason of why she has not followed up. She was seen in ICU bed 2 currently running on dopamine drip. Heart rate still in the 30s. Dr. Scott going to take patient to Director Title for placement of transvenous pacemaker. At previous hospital stay she had a stress test and an echo. Echo showed normal LVEF 55 to 60%, dilated and hypokinetic right ventricle. Stress test showed patchy areas of persistent decreased tracer uptake in inferior lateral and apical lateral regions suggestive of myocardial scarring versus retraction artifact. She also had a paracentesis done with removal of 5400 cc of fluid. Patient was diagnosed with moderate pulmonary hypertension and nonalcoholic liver cirrhosis with portal hypertension, splenomegaly. She was also FOBT positive but she had recently finished an EGD and colonoscopy at outside hospital. Patient was referred to product technology scientist and pulmonary hypertension clinic as an outpatient. Spironolactone, Bumex, nadolol was added. Her existing amiodarone dose was reduced to 200 daily. Secondary to her history of GI bleed she is not a candidate for anticoagulation for her A. fib. ED course: On arrival blood pressure 105/41, respirate 16, pulse of 31, temperature 98.2, saturating 95% on room air. EKG showed bradycardia with no other ST or T wave abnormalities. Creatinine 1.8, AST 79, ALT 48, alkaline phosphatase 324, TSH 10.64, hemoglobin 9.8. Patient was given atropine 0.5x2, normal saline bolus 1 L x 1 and subsequently started on a dopamine drip and transferred to the ICU in a stable condition. Medications/Allergies Home Medications Medication Instructions Recorded Confirmed Last Taken Type albuterol sulfate 90 mcg/actuation 2 inh inhalation Q6H PRN Shortness 05/18/19 09/21/21 09/20/21 History breath activated powder inhaler Of Breath pantoprazole 40 mg tablet,delayed 40 mg PO BID 05/18/19 09/21/21 09/20/21 History release ferrous sulfate 325 mg (65 mg 325 mg PO BID 08/17/19 09/21/21 09/20/21 History iron) tablet metformin 500 mg tablet,extended 500 mg PO BID 09/21/21 09/21/21 09/20/21 History release 24 hr amiodarone 400 mg tablet 200 mg PO DAILY #90 tabs 09/24/21 09/21/21 09/20/21 Rx bumetanide 1 mg tablet 1 mg PO DAILY #60 tabs 09/24/21 Unknown Rx levothyroxine 88 mcg tablet 112 mcg PO DAILY #0 tabs 09/24/21 09/21/21 09/20/21 Rx nadolol 20 mg tablet 20 mg PO DAILY 30 days #30 tabs 09/24/21 Unknown Rx potassium chloride 20 mEq 10 - 20 meq PO BID PRN Edema #60 09/24/21 09/21/21 09/20/21 Rx tablet,extended release tabs spironolactone 50 mg tablet 25 mg PO DAILY #30 tabs 09/24/21 Unknown Rx Allergies Allergy/AdvReac Type Severity Reaction Status Date / Time No Known Allergies Allergy Unknown Unverified 09/23/19 08:19 PFSH Acute PFSH: Medical History (Updated 10/06/21 @ 23:53 by Mckenzie Scott MD) Afib Chronic atrial fibrillation Congenital heart disease Diabetes GI bleed Moderate mitral regurgitation Moderate tricuspid regurgitation Pulmonary hypertension Type 2 diabetes mellitus Surgical History Hx of cataract surgery S/P atrial septal defect closure, surgical Family History Father Cancer Brother Cancer Grandmother CAD (coronary artery disease) Denies family history of Diabetes Clotting disorder Dementia Hyperlipidemia Psychiatric illness Chronic kidney disease (CKD) Suicide Anesthesia complication Bleeding disorder Family history of premature coronary artery disease Lung disease Hypertension Stroke Social History Smoking and tobacco status: former smoker Second hand smoke exposure: No Alcohol intake: never Vitals/I&O/Wt Last Vital Signs Temp 98.2 F 10/06/21 19:03 Pulse 31 L 10/06/21 19:03 Resp 16 10/06/21 19:03 BP 105/41 10/06/21 19:03 Pulse Ox 95 10/06/21 19:03 O2 Del Method 10/06/21 19:03 Weight last 48 hrs Weight 72.575 kg Physical Exam Narrative: General: Alert oriented x3, patient seen laying in bed appearing comfortable at this time HEENT: Normocephalic, atraumatic, EOMI, breathing normally on room air saturating 95% Cardio: Bradycardic, heart rate 30s, currently on dopamine drip normal S1-S2, systolic murmur present Respiratory: Clear to auscultation bilaterally GI: Abdomen soft, nontender, nondistended, bowel sounds + Behavior: Appropriate and cooperative Extremities: Bilateral lower extremity edema 2+ Data : 10/06/21 19:05 10/06/21 19:05 A&P Assessment and plan (1) Bradycardia: Status: Acute (2) Right ventricular dilation: Status: Acute (3) Portal hypertension: Status: Acute (4) Splenomegaly: Status: Acute (5) Ascites: Status: Acute (6) Moderate tricuspid regurgitation: Status: Acute (7) Moderate mitral regurgitation: Status: Acute (8) Pulmonary hypertension: Status: Acute Plan #Bradycardia junctional rhythm, requiring dopamine drip, #Acute kidney injury, creatinine 1.8 #History of atrial fibrillation, on amiodarone #Nonalcoholic liver disease with splenomegaly and portal hypertension #Moderate pulmonary hypertension with right ventricular dilatation and hypokinesia #Deconditioning, generalized weakness #History of anemia, FOBT positive, completed EGD and colonoscopy at another hospital. ? Continue dopamine drip at this time. Patient will be going for transvenous pacemaker shortly. Dr. Scott will be taking her to Director Title. After pacemaker placed. Dopamine drip. Cardiology following. ? Continue to monitor in ICU ? Hold amiodarone, nadolol ? Continue Bumex 1 mg daily ? Continue pantoprazole 40 twice daily ? We will hold spironolactone for today. ? Continue levothyroxine ? Patient will be encouraged to follow-up with product technology scientist and pulmonary hypertension clinic at discharge. ? Check urine creatinine, urine protein, urine creatinine protein ratio, urinalysis, urine osmolality, ? MILA, creatinine 1.8, baseline 0.6. Monitor urine output. Will need to rule out possible hepatorenal syndrome ? Hemodynamically patient is stable. Blood pressure 117/54. ? Check BNP - Check ECHO - Check abdominal ultrasound for ascites DVT prophylaxis: SCDs Attestations Medical Necessity Statement*: Will cross > 2 midnight for management of bradycardia Coding Level of Care Code Acute Gyroscopic Engineering Technician for Chg Fwd Diagnoses Bradycardia R00.1 Right ventricular dilation I51.7 Portal hypertension K76.6 Splenomegaly R16.1 Ascites R18.8 Moderate tricuspid regurgitation I07.1 Moderate mitral regurgitation I34.0 Pulmonary hypertension I27.20
[2021-10-06 23:50] LABS: Free T4 Free Thyroxine 1.61 ng/dL (0.82-1.77)
[2021-10-07] VITALS (51 sets, daily range): BP systolic 95–145; BP diastolic 50–92; PULSE 55–83; RESP 9–30; TEMP 36.3–37.1; O2SAT 89–98
--- NOTE | 2021-10-07 00:01 | P.OP_ITS ---
Operative Report Date of procedure: October 07, 2021 Pre-op diagnosis: Preop Diagnosis GI bleed Procedure: PROCEDURE: Transvenous temporary pacemaker insertion LOCATION: Cardiac catheterization lab PRE-OP DIAGNOSIS: Symptomatic bradycardia of POSTOPERATIVE DIAGNOSES: Same. COMPLICATIONS: None. ESTIMATED BLOOD LOSS: None. BRIEF HISTORY: 76year old white female present with complaints of dizziness/weakness/near syncopal episodes. Patient was found to be bradycardic with a heart rate in the 30s, appeared to be junctional rhythm. She was given a total of 2 mg of IV atropine with no response. Her blood pressure was in the 90s. She was complaining of dizziness. She was started on IV dopamine in the emergency room. She continued to be bradycardic. For further management of her condition, a transvenous temporary pacer insertion was recommended. I discussed with the patient, the procedure and the possible complications including hematoma, vascular injury, infection, myocardial perforation and other concomitant complications. This was understood well by the patient, who consented to proceed. PROCEDURE DESCRIPTION: Patient was brought to the Cardiac Parliamentary Librarian. The right and the left side of the groin were prepped and draped in a sterile fashion. 1% Xylocaine was used as a local anesthetic agent. The right femoral venous access was obtained using a micropuncture needle system. A 6-[place]izen [place] venous sheath was introduced into the femoral vein over a guidewire. A 5-[place]izen [place] temporary balloon-tipped pacing wire over a sleeve was advanced through the venous sheath, under fluoroscopic guidance. The temporary pacing wire was placed near to the right ventricular apex. Good pacing threshold was obtained. The venous sheath was secured in place by suturing to the skin with 0 Surgilon. The pacemaker wire also was secured to the skin by suturing with 0 Surgilon, over the sleeve. A sterile dressing was applied at the access site. Patient tolerated the procedure very well and there were no complications. PACEMAKER SETTINGS: The pacemaker was set for a backup rate of 60 with an output of 3 volts and on a demand mode. The pacing threshold was less than 1 DISPOSITION: Patient was transferred to the Intensive Care Unit in stable condition.
[2021-10-07 00:52] LABS: Add Urine Microscopic? YES; Bilirubin Urine Neg (Negative); Blood Urine Neg (Negative); Glucose Urine UA Norm (Normal); Ketones Urine Negative (Negative); Leukocyte Esterase Urine Negative (Negative); Nitrate Urine Positive (Negative); Protein Urine Neg (Negative); Specific Gravity, Urine 1.005 (1.005-1.030); Urine Appearance SL Hazy (CLEAR); Urine Color Yellow (Yellow); Urobilinogen Urine Neg (Negative); pH Urine 5 (5-7)
[2021-10-07 00:56] LABS: Bacteria Urine 3+ /hpf; Mucus Urine 2+ /hpf; RBC Urine 0-4 /hpf (0-2)
[2021-10-07 00:57] LABS: Add Urine Culture? Yes; Amorphous Sediment Urine TRACE /hpf
[2021-10-07] MEDS: pantoprazole 40 mg SDV IVP ×2 (00:57→09:55)
--- NOTE | 2021-10-07 00:57 | ECG_ITS ---
[facility] Test Date: 2021-10-06 Pat Name: Dawn Henao Department: Room: ICU02 Gender: Female Service Now Developer: : 1945 Requested By: Malik Ladd Order Number: [id number] Collins MD: Mckenzie Scott M.D. Measurements Intervals [place] Rate: 37 P: [place]: QRS: 155 QRSD: 169 T: 11 QT: 622 QTc: 493 Interpretive Statements Possible junctional bradycardia RIGHT AXIS DEVIATION [QRS AXIS > 100] RIGHT BUNDLE BRANCH BLOCK AND POSSIBLE RIGHT VENTRICULAR HYPERTROPHY [RBBB, 1.5 mV R IN V1, RAD] PROLONGED QT INTERVAL CRITICAL TEST RESULT Compared to ECG 09/21/2021 05:18:01 Prolonged QT interval now present Atrial fibrillation no longer present Electronically Signed On 10-07-2021 19:08:30 CDT by Mckenzie Scott M.D. [email or web address]
[2021-10-07 01:13] LABS: Urine Creatinine 67 mg/dL (28-217); Urine Protein Random 18 mg/dL
[2021-10-07 01:46] LABS: Basophils % 0.4 %; Eosinophils # 0.1 10^3/uL (0.0-0.8); Eosinophils % 1.1 %; Hematocrit 29.4 % (37.0-47.0); Hemoglobin 8.9 g/dL (11.5-15.3); Lymphocytes # 0.7 10^3/uL (0.8-4.8); Lymphocytes % 10.3 %; Mean Corpuscular HGB Conc 30.3 g/dL (30.0-36.0); Mean Corpuscular Hemoglobin 27.7 pg (28.0-34.0); Mean Corpuscular Volume 91.6 fl (81-99); Mean Platelet Volume 11.7 fL (7.4-10.4); Monocytes # 0.8 10^3/uL (0.2-0.9); Neutrophils # 5.34 10^3/uL (1.8-7.7); Neutrophils % 76.8 %; Nucleated Red Blood Cells % 0 %; Platelet Count 163 10^3/cmm (130-400); Red Blood Count 3.21 10^6/uL (4.1-5.3); Red Cell Distribution Width 17.3 % (12.1-15.1)
[2021-10-07 01:57] LABS: INR 1.19 (0.8-1.2)
[2021-10-07 02:14] LABS: Alanine Aminotransferase 43 U/L (0-33); Albumin Level 3.2 g/dL (3.5-5.2); Alkaline Phosphatase 278 IU/L (35-105); Anion Gap 16.5 (5-19); Aspartate Amino Transferase 66 U/L (0-32); Blood Urea Nitrogen 49 mg/dL (8-23); Calcium 8.6 mg/dL (8.5-10.5); Carbon Dioxide 25 mmol/L (22-29); Chloride 105 mmol/L (98-107); Globulin 2.6 g/dL (1.3-4.6); Glucose 148 mg/dL (65-115); Osmolality Calculated 310 mOsm/kg (285-295); Potassium 4.5 mmol/L (3.5-5.1); Sodium 142 mmol/L (136-145); Total Bilirubin 0.7 mg/dL (0.15-1.2); Total Protein 5.8 g/dL (6.6-8.7)
[2021-10-07] MEDS: FUROsemide 10 mg/mL SDV 4mL 40 MG IVP (02:50)
[2021-10-07] MEDS: enoxaparin 40 mg/0.4 mL Syringe SUBCUT (05:42)
--- NOTE | 2021-10-07 05:59 | ECG_ITS ---
[facility] Test Date: 2021-10-07 Pat Name: Dawn Henao Department: Room: ICU02 Gender: Female Workforce Development Vice President: : 1945 Requested By: Mckenzie Scott Order Number: [id number] Collins MD: Mckenzie Scott M.D. Measurements Intervals [place] Rate: 62 P: [place]: QRS: -72 QRSD: 215 T: 104 QT: 609 QTc: 619 Interpretive Statements ELECTRONIC VENTRICULAR PACEMAKER PROLONGED QT INTERVAL CRITICAL TEST RESULT Compared to ECG 10/06/2021 22:28:18 Right-axis deviation no longer present Right bundle-branch block no longer present Electronically Signed On 10-07-2021 19:10:08 CDT by Mckenzie Scott M.D. [email or web address]
--- NOTE | 2021-10-07 07:20 | P.CONIM_ITS ---
Providers/Reason For Consult Consulting Physician/Specialty*: Mica Marcano D.O. Reason for Consult*: Acute kidney injury Requesting Physician: Khloe Huff MD Attending Physician: Khloe Huff MD Primary Care Provider: Cori Lane MD History of Present Illness History of Present Illness Dawn Henao is a 76 year old female admitted with symptomatic bradycardia, acute kidney injury. Cirrhosis s/p large volume paracentesis 2 weeks ago. States she was weighing daily at home and weight stable at 160#. Review of Systems Narrative: + weakness ENMT: Reports: other (+ dry mouth) Medications/Allergies Home Medications Medication Instructions Recorded Confirmed Last Taken Type albuterol sulfate 90 mcg/actuation 2 inh inhalation Q6H PRN Shortness 05/18/19 09/21/21 09/20/21 History breath activated powder inhaler Of Breath pantoprazole 40 mg tablet,delayed 40 mg PO BID 05/18/19 09/21/21 09/20/21 History release ferrous sulfate 325 mg (65 mg 325 mg PO BID 08/17/19 09/21/21 09/20/21 History iron) tablet metformin 500 mg tablet,extended 500 mg PO BID 09/21/21 09/21/21 09/20/21 History release 24 hr amiodarone 400 mg tablet 200 mg PO DAILY #90 tabs 09/24/21 09/21/21 09/20/21 Rx bumetanide 1 mg tablet 1 mg PO DAILY #60 tabs 09/24/21 Unknown Rx levothyroxine 88 mcg tablet 112 mcg PO DAILY #0 tabs 09/24/21 09/21/21 09/20/21 Rx nadolol 20 mg tablet 20 mg PO DAILY 30 days #30 tabs 09/24/21 Unknown Rx potassium chloride 20 mEq 10 - 20 meq PO BID PRN Edema #60 09/24/21 09/21/21 09/20/21 Rx tablet,extended release tabs spironolactone 50 mg tablet 25 mg PO DAILY #30 tabs 09/24/21 Unknown Rx Allergies Allergy/AdvReac Type Severity Reaction Status Date / Time No Known Allergies Allergy Unknown Unverified 09/23/19 08:19 Current Medications Generic Name Dose Route Start Last Admin Trade Name Freq PRN Reason Stop Dose Admin Enoxaparin Sodium 40 mg 10/07/21 06:00 10/07/21 05:42 Enoxaparin 40 Mg/0.4 Ml Syringe SUBCUT 40 mg Q24H SONDRA Administration Dopamine HCl/Dextrose 400 mg in 250 mls @ 8.165 mls/hr 10/06/21 21:45 10/07/21 00:53 Intropin Drip IV 0 mcg/kg/min CONT SONDRA 0 mls/hr Infusion Protocol 3 MCG/KG/MIN Pantoprazole Sodium 40 mg 10/06/21 22:15 10/07/21 00:57 Pantoprazole 40 Mg Sdv IVP 40 mg Q12H SONDRA Administration PFSH Acute PFSH: Medical History Afib Chronic atrial fibrillation Congenital heart disease Diabetes GI bleed Moderate mitral regurgitation Moderate tricuspid regurgitation Pulmonary hypertension Type 2 diabetes mellitus Surgical History Hx of cataract surgery S/P atrial septal defect closure, surgical Family History Father Cancer Brother Cancer Grandmother CAD (coronary artery disease) Denies family history of Diabetes Clotting disorder Dementia Hyperlipidemia Psychiatric illness Chronic kidney disease (CKD) Suicide Anesthesia complication Bleeding disorder Family history of premature coronary artery disease Lung disease Hypertension Stroke Social History Smoking and tobacco status: former smoker Second hand smoke exposure: No Alcohol intake: never Vitals/I&O/Wt Last Vital Signs Temp 97.4 F L 10/07/21 04:00 Pulse 63 10/07/21 06:00 Resp 18 10/07/21 06:00 BP 125/62 10/07/21 06:00 Pulse Ox 94 10/07/21 06:00 O2 Del Method 10/07/21 06:00 O2 Flow Rate 1 10/07/21 01:00 10/06/21 10/07/21 10/07/21 22:59 06:59 14:59 Intake Total 500 / 500 174.374 / 674.374 Output Total 1525 / 1525 Balance 500 / 500 -1350.626 / -850.626 Weight last 48 hrs Weight 71.985 kg Weight 73.482 kg Weight 73.482 kg Weight 72.575 kg Physical Exam Const: COMMON NORMALS: no acute distress and alert Extremity: OTHER: trace - 1+ edema Neuro: SENSORIUM/ORIENTATION: Yes alert Urinary Catheter Management: Escobar: Cath Placed During This Visit: yes Urinary Catheter Date of Insertion: 10/07/21 Urinary Catheter Time of Insertion: 00:20 Data : 10/07/21 01:20 10/07/21 01:20 Other Labs: calcium 8.6, Mg 2.4, albumin 3.2 urinalysis + WBC, + nitrate, + bacteria, no protein urine protein/Cr ratio 268 mg/g CXR: Radiologist's impression: Lungs: No consolidation. Pleural spaces: No pleural effusion. No pneumothorax. Heart/Mediastinum: Similar cardiomegaly. Bones/joints: Sternotomy wires noted. Visualized osseous structures are intact. CT Abd/Pel: Radiologist's impression: 09/22/21 Adrenal glands: Normal. No mass. Kidneys and ureters: Normal. No hydronephrosis. Echo: Radiologist's impression: ?09/21/21 LV systolic function is normal with EF of 55 to 60%. ?RV is dilated and hypokinetic. ?Biatrial enlargement. ?Mitral annuloplasty ring is seen. Mild to moderate mitral?regurgitation ?Mild aortic stenosis is seen with a mean gradient across aortic valve of 12.1 mmHg and aortic valve area of 1.45 cm.? Trace?aortic regurgitation is seen ?Mild to moderate tricuspid regurgitation.? Moderate pulmonary ?hypertension. ?Compared to prior echocardiogram from 01/22/2019, RV now is dilated and hypokinetic. A&P Assessment and plan (1) Acute kidney injury: Status: Acute Plan 1. Acute kidney injury, nonoliguric, likely prerenal (volume depletion). 2. Anemia, recent iron deficiency 3. Cirrhosis, right sided heart failure 4. Symptomatic bradycardia s/p temporary pacemaker placement 5. Pyuria, rule-out UTI, culture pending, on rocephin Recommend: gentle IVF hydration. Check urine sodium and Cr, iron studies. hold diuretics Consult Attestations Medical Necessity Statement: see above Time Spent in Patient Care: 16 - 35 minutes Coding Level of Care Code Acute Energy Conservation Specialist for Antonio Reilly Diagnoses Acute kidney injury N17.9
--- NOTE | 2021-10-07 08:36 | PM.PN ---
Subjective Subjective: Patient had some intermittent loss of capturing, on the monitor. Responded by increasing the output. Denies any chest pain or shortness of breath. No fever, chills or cough. No hematoma bleeding from the right groin. The family and the patient has decided not to undergo any invasive procedures. She does not want a permanent pacemaker! Medications: Medication Review Details: Current Medications Albuterol Sulfate (Albuterol 8 Gm Mdi) 2 puff INHALATION Q4H.RESPIRATORY PRN PRN Reason: SHORTNESS OF BREATH Enoxaparin Sodium (Enoxaparin 40 Mg/0.4 Ml Syringe) 40 mg SUBCUT Q24H SONDRA Last Admin: 10/07/21 05:42 Dose: 40 mg Dopamine HCl/Dextrose (Intropin Drip) 400 mg in 250 mls @ 8.165 mls/hr IV CONT SONDRA; Protocol Last Infusion: 10/07/21 00:53 Dose: 0 mcg/kg/min, 0 mls/hr Ceftriaxone Sodium 2,000 mg/ (Dextrose) 50 mls @ 100 mls/hr IV Q24H SONDRA; Protocol Last Admin: 10/07/21 07:51 Dose: 100 mls/hr Levothyroxine Sodium (Levothyroxine 112 Mcg Tablet) 112 mcg PO DAILY SONDRA Pantoprazole Sodium (Pantoprazole 40 Mg Sdv) 40 mg IVP Q12H SONDRA Last Admin: 10/07/21 00:57 Dose: 40 mg Vitals/I&O/Wt Last Vital Signs Temp 97.4 F L 10/07/21 04:00 Pulse 63 10/07/21 06:00 Resp 18 10/07/21 06:00 BP 125/62 10/07/21 06:00 Pulse Ox 94 10/07/21 06:00 O2 Del Method 10/07/21 06:00 O2 Flow Rate 1 10/07/21 01:00 10/06/21 10/07/21 10/07/21 22:59 06:59 14:59 Intake Total 500 / 500 174.374 / 674.374 Output Total 1525 / 1525 Balance 500 / 500 -1350.626 / -850.626 Weight last 48 hrs Weight 158 lb 11.2 oz Weight 162 lb Weight 162 lb Weight 160 lb Physical Exam Narrative: GENERAL: The patient is alert and oriented times three. Not in any acute distress. HEENT: Moderate pallor, icterus or lymphadenopathy.Oral cavity: There are no mucous membrane lesions. NECK: Trachea appears to be central. No masses noted. No JVD or thyromegaly appreciated. RESPIRATORY: Chest is symmetrical. No intercostals muscle retraction or any accessory muscle activation. There is no chest wall tenderness. Breath sounds are heard bilaterally. No rales or rhonchi heard. No evidence of any consolidation. BREASTS: Deferred. HEART: Systolic murmur grade 3 or 6 in the left sternal border. No diastolic murmurs. Variable first heart sound. Relatively loud S2 ABDOMEN: No vessel pulsations or distention. No tenderness. Hepatosplenomegaly bowel sounds are normally heard. : Deferred. RECTAL: Deferred. LYMPHATIC: No lymphadenopathy noted in the neck. EXTREMITIES: Trace edema with no cyanosis MUSCULOSKELETAL: No acute joint deformities or swelling SKIN: There are no significant rashes or ecchymosis NEUROPSYCHIATRIC: The patient is alert and oriented x3. Appears to be in a good mood. No tremors or rigidity noted. Somewhat anxious Urinary Catheter Management: Escobra: Cath Placed During This Visit: yes Reason for Continuing Indwelling Catheter: Accurate Measurement of Urinary Output in Critically Ill Patients Urinary Catheter Date of Insertion: 10/07/21 Urinary Catheter Time of Insertion: 00:20 Data : 10/07/21 01:20 10/07/21 01:20 Other Labs: Laboratory Last Values WBC 7.0 10^3/uL (4.0-10.0) 10/07/21 01:20 RBC 3.21 10^6/uL (4.1-5.3) L 10/07/21 01:20 Hgb 8.9 g/dL (11.5-15.3) L 10/07/21 01:20 Hct 29.4 % (37.0-47.0) L 10/07/21 01:20 MCV 91.6 fl (81-99) 10/07/21 01:20 MCH 27.7 pg (28.0-34.0) L 10/07/21 01:20 MCHC 30.3 g/dL (30.0-36.0) 10/07/21 01:20 RDW 17.3 % (12.1-15.1) H 10/07/21 01:20 Plt Count 163 10^3/cmm (130-400) 10/07/21 01:20 MPV 11.7 fL (7.4-10.4) H 10/07/21 01:20 Neut % (Auto) 76.8 % 10/07/21 01:20 Lymph % (Auto) 10.3 % 10/07/21 01:20 [place] % (Auto) 11.0 % 10/07/21 01:20 Eos % (Auto) 1.1 % 10/07/21 01:20 Baso % (Auto) 0.4 % 10/07/21 01:20 Neut # (Auto) 5.34 10^3/uL (1.8-7.7) 10/07/21 01:20 Lymph # (Auto) 0.7 10^3/uL (0.8-4.8) L 10/07/21 01:20 [place] # (Auto) 0.8 10^3/uL (0.2-0.9) 10/07/21 01:20 Eos # (Auto) 0.1 10^3/uL (0.0-0.8) 10/07/21 01:20 Baso # (Auto) 0.0 10^3/uL (0.0-0.1) 10/07/21 01:20 Nucleated RBC % (auto) 0 % 10/07/21 01:20 Nucleated RBCs # 0.0 /100WBC 10/07/21 01:20 PT 15.50 SECONDS (12.1-14.9) H 10/07/21 01:20 INR 1.19 (0.8-1.2) 10/07/21 01:20 Sodium 142 mmol/L (136-145) 10/07/21 01:20 Potassium 4.5 mmol/L (3.5-5.1) 10/07/21 01:20 Chloride 105 mmol/L (98-107) 10/07/21 01:20 Carbon Dioxide 25 mmol/L (22-29) 10/07/21 01:20 Anion Gap 16.5 (5-19) 10/07/21 01:20 BUN 49 mg/dL (8-23) H 10/07/21 01:20 Creatinine 1.9 mg/dL (0.5-0.9) H 10/07/21 01:20 GFR Calculation Not Reportable 10/07/21 01:20 Glucose 148 mg/dL (65-115) H 10/07/21 01:20 Calculated Osmolality 310 mOsm/kg (285-295) H 10/07/21 01:20 Lactic Acid 1.4 mmol/L (0.5-2.2) 10/06/21 23:15 Calcium 8.6 mg/dL (8.5-10.5) 10/07/21 01:20 Magnesium 2.4 mg/dL (1.7-2.3) H 10/06/21 19:05 Total Bilirubin 0.7 mg/dL (0.15-1.2) 10/07/21 01:20 AST 66 U/L (0-32) H 10/07/21 01:20 ALT 43 U/L (0-33) H 10/07/21 01:20 Alkaline Phosphatase 278 IU/L (35-105) H 10/07/21 01:20 Troponin T Baseline 54 ng/L (0-10) H 10/06/21 19:05 Troponin T 120 Minute 51.46 ng/L (0-10) H 10/06/21 21:20 Delta Troponin T -2.54 ABS# (0-10) L 10/06/21 21:20 Troponin T Hi Sens 6Hr 43.80 ng/L (0-10) H 10/07/21 01:20 Troponin T Hi Sens 6Hr Delta -10.20 ng/L (0-12) L 10/07/21 01:20 NT-Pro-B Natriuret Pep 5424 pg/mL (0-450) H 10/06/21 19:05 Total Protein 5.8 g/dL (6.6-8.7) L 10/07/21 01:20 Albumin 3.2 g/dL (3.5-5.2) L 10/07/21 01:20 Globulin 2.6 g/dL (1.3-4.6) 10/07/21 01:20 TSH 10.64 uIU/mL (0.27-4.20) H 10/06/21 19:05 Free T4 1.61 ng/dL (0.82-1.77) 10/06/21 21:20 Urine Color Yellow (Yellow) 10/07/21 00:15 Urine Appearance Sl hazy (CLEAR) 10/07/21 00:15 Urine pH 5 (5-7) 10/07/21 00:15 Ur Specific [place] 1.005 (1.005-1.030) 10/07/21 00:15 Urine Protein Neg (Negative) 10/07/21 00:15 Urine Glucose (UA) Norm (Normal) 10/07/21 00:15 Urine Ketones Negative (Negative) 10/07/21 00:15 Urine Blood Neg (Negative) 10/07/21 00:15 Urine Nitrate Positive (Negative) H 10/07/21 00:15 Urine Bilirubin Neg (Negative) 10/07/21 00:15 Urine Urobilinogen Neg mg/dL (Negative) 10/07/21 00:15 Ur Leukocyte Esterase Negative (Negative) 10/07/21 00:15 Urine RBC 0-4 /hpf (0-2) H 10/07/21 00:15 Urine WBC 5-10 /hpf (0-5) H 10/07/21 00:15 Ur Squamous Epith Cells 5-10 /hpf (0-5) H 10/07/21 00:15 Amorphous Sediment Trace /hpf 10/07/21 00:15 Urine Bacteria 3+ /hpf (NONE) H 10/07/21 00:15 Urine Mucus 2+ /hpf 10/07/21 00:15 U Random Total Protein 18 mg/dL 10/07/21 00:15 Urine Creatinine 67 mg/dL (28-217) 10/07/21 00:15 A&P Assessment and plan (1) Symptomatic bradycardia: Patient seems to be pacemaker dependent most of the times. Status: Acute (2) Right ventricular dilation: Possibly from the pulmonary hypertension and severe regurgitation in the past. Currently she has at least moderate eccentric TR. a repeat echocardiogram today was of suboptimal quality Status: Acute (3) Portal hypertension: Patient is known to have nonalcoholic liver cirrhosis. She was scheduled to see a silverware buffer at the [facility]. Apparently she refused to go for this Status: Acute (4) Splenomegaly: From the portal hypertension Status: Acute (5) Ascites: patient had a recent paracentesis. Currently seems to have no significant to ascites. Status: Acute (6) Moderate tricuspid regurgitation: Thank you that tricuspid regurgitation appears to be more severe. Status: Acute (7) Chronic atrial fibrillation: Patient is not on any oral anticoagulation because of the GI bleed Status: Acute Plan We will continue with the temporary pacing initial 48 hours. If it is due to the beta-christopher, may expect the heart rate being low after 48 hours. In the meanwhile, she may continue on the current treatment. Patient and the family still discussing about invasive procedures. If there is any change of mind, she will let me know Other problems are Anemia Acute on chronic kidney disease Nonalcoholic cirrhosis of the liver Attestations Medical Necessity Statement*: Patient requires continued hospital stay for close monitoring and further management Coding Level of Care Code Acute Delivery Assistant for Chg Fwd History Detailed Exam Detailed Medical Decision Making Moderate Complexity Diagnoses Symptomatic bradycardia R00.1 Right ventricular dilation I51.7 Portal hypertension K76.6 Splenomegaly R16.1 Ascites R18.8 Moderate tricuspid regurgitation I07.1 Chronic atrial fibrillation I48.20
--- NOTE | 2021-10-07 09:14 | USCV_ITS ---
Waleskadenisstan, Dawn Age: 76 Gender: F : 1945 Exam Date: 10/07/2021 09:18 Ordering Phys: Mckenzie Scott MD ([email or web address]) Technologist: Sandra Araujo Exam Location: [facility] Indication: Temp pacer in place BP: 112 / 52 HR: 59 Rhythm: Sinus Technical Quality: Adequate MEASUREMENTS (Male / Female) Normal Values 2D ECHO LV Diastolic Diameter PLAX 4.7 cm 4.2 - 5.9 / 3.9 - 5.3 cm LV Systolic Diameter PLAX 3.3 cm LV Chamber Size 3.6 cm IVS Diastolic Thickness 1.2 cm 0.6 - 1.0 / 0.6 - 0.9 cm IVS Systolic Thickness 1.5 cm LVPW Diastolic Thickness 2.0 cm 0.6 - 1.0 / 0.6 - 0.9 cm LVPW Systolic Thickness 1.6 cm RV Chamber Size 4.8 cm LVOT Diameter 2.1 cm LV Ejection Fraction 2D Teich 56.3 % LV Ejection Fraction MOD 2C 80.2 % LV Ejection Fraction 2C AL 79.2 % LA Diameter 5.1 cm LA Width 3.2 cm LA Height 4.8 cm RA Width 4.5 cm RA Height 4.8 cm Aorta at Sinotubular Diameter 2.7 cm IVC Diameter 1.8 cm M-MODE Aortic Annulus Diameter 3.0 cm LA Ao Ratio MM 1.9 MV E Point Septal Separation 0.8 cm DOPPLER AV Peak Velocity 273.0 cm/s LVOT Peak Velocity 110.3 cm/s AV Area Cont Eq vti 1.2 cm squared AV Area Cont Eq pk 1.3 cm squared MV Area PHT 5.4 cm squared Mitral E to A Ratio 1.9 MV E' Velocity 115.0 cm/s Mitral E to MV E' Ratio 31.8 Mitral E to LV E' Lateral Ratio 22.9 Mitral E to LV E' Septal Ratio 53.6 TR Peak Velocity 298.9 cm/s TR Peak Gradient 35.7 mmHg TR Mean Velocity 251.9 cm/s TR Mean Gradient 27.9 mmHg TR Velocity Time Integral 128.4 cm TV Peak E Velocity 96.0 cm/s Right Atrial Pressure 3.0 mmHg Pulmonary Artery Systolic Pressu 38.7 mmHg PV Peak Velocity 132.0 cm/s RV Acceleration Time 0.2 s RV Ejection Time 0.4 s RV AcT/ET 0.5 FINDINGS Left Ventricle Normal left ventricular size and systolic function, EF 80 %. Moderate left ventricular hypertrophy. Grade III/IV diastolic dysfunction (restrictive filling pattern), severely elevated filling pressures. Right Ventricle Mildly dilated right ventricular with slightly diminished ejection fraction Right Atrium Moderately increased right atrial size. Left Atrium Moderately increased left atrial size. Mitral Valve Mild mitral valve regurgitation. Aortic Valve Moderate aortic valve stenosis, mean gradient 15.5 mmHg, SWATHI 1.2 cm squared. Tricuspid Valve Moderate eccentric tricuspid regurgitation. The tricuspid annular ring appears intact. Estimated pulmonary artery peak systolic pressure of 39 mmHg Pulmonic Valve [id number] pulmonary valve regurgitation. Pericardium No pericardial effusion. Aorta Normal aortic annulus size. IVC Normal inferior vena cava. CONCLUSIONS Normal left ventricular size and systolic function, EF 80 %. Moderate left ventricular hypertrophy. Grade III/IV diastolic dysfunction (restrictive filling pattern), severely elevated filling pressures. Moderate biatrial enlargementModerate aortic valve stenosis, mean gradient 15.5 mmHg, SWATHI 1.2 cm squared. Moderate eccentric tricuspid regurgitation. The tricuspid annular ring appears intact. Estimated pulmonary artery peak systolic pressure of 39 mmHg(this could be an underestimation because of the poor Doppler signals). [id number] pulmonary valve regurgitation. Mild mitral valve regurgitation. Compared to the study from 09/21/2021, because of the difference in technical quality, the mitral and tricuspid regurgitations and the PA pressure could be underestimated Dr Mckenzie Scott MD [facility] (Electronically Signed) Final Date: 07 October 2021 10:15 S
[2021-10-07] MEDS: sodium chloride 0.9% 1,000 ML 75 ML IV ×2 (09:16→21:38)
[2021-10-07] MEDS: levothyroxine 112 mcg Tablet PO (09:53)
[2021-10-07 11:23] LABS: Creatinine Urine, Random 71 mg/dL (28-217); Urine Random Sodium 26 mmol/L
--- NOTE | 2021-10-07 12:50 | P.PN_ITS ---
Subjective Subjective: Patient was seen and examined this morning, currently on transvenous pacemaker, mostly paced, BUN and serum creatinine has slightly gone up. Currently she is denying any chest pain, SOB,nausea,vomiting abdominal pain. Has been afebrile. Medications: Medication Review Details: Current Medications Albuterol Sulfate (Albuterol 8 Gm Mdi) 2 puff INHALATION Q4H.RESPIRATORY PRN PRN Reason: SHORTNESS OF BREATH Enoxaparin Sodium (Enoxaparin 40 Mg/0.4 Ml Syringe) 40 mg SUBCUT Q24H SONDRA Last Admin: 10/07/21 05:42 Dose: 40 mg Dopamine HCl/Dextrose (Intropin Drip) 400 mg in 250 mls @ 8.165 mls/hr IV CONT SONDRA; Protocol Last Infusion: 10/07/21 00:53 Dose: 0 mcg/kg/min, 0 mls/hr Ceftriaxone Sodium 2,000 mg/ (Dextrose) 50 mls @ 100 mls/hr IV Q24H SONDRA; Protocol Last Admin: 10/07/21 07:51 Dose: 100 mls/hr Levothyroxine Sodium (Levothyroxine 112 Mcg Tablet) 112 mcg PO DAILY SONDRA Pantoprazole Sodium (Pantoprazole 40 Mg Sdv) 40 mg IVP Q12H SONDRA Last Admin: 10/07/21 00:57 Dose: 40 mg Vitals/I&O/Wt Last Vital Signs Temp 97.6 F 10/07/21 08:00 Pulse 61 10/07/21 10:00 Resp 22 H 10/07/21 10:00 BP 114/58 10/07/21 10:00 Pulse Ox 91 10/07/21 09:00 O2 Del Method 10/07/21 08:00 O2 Flow Rate 1 10/07/21 01:00 10/06/21 10/07/21 10/07/21 22:59 06:59 14:59 Intake Total 500 / 500 174.374 / 674.374 460 / 460 Output Total 1525 / 1525 600 / 600 Balance 500 / 500 -1350.626 / -850.626 -140 / -140 Weight last 48 hrs Weight 71.985 kg Weight 73.482 kg Weight 73.482 kg Weight 72.575 kg Physical Exam Resp: COMMON NORMALS: normal respiratory effort, No retractions, No use of acc essory muscles and clear to auscultation bilaterally EFFORT & INSPECTION: Yes symmetric chest movement AUSCULTATION: clear to auscultation bilaterally Cardio: COMMON NORMALS: regular rate, regular rhythm, S1 normal heart sound present, S2 normal heart sound present, No rub (Cardio) and Peripheral pulses 2+ throughout RATE: regular rate RHYTHM: regular rhythm HEART SOUNDS: S1 normal heart sound present and S2 normal heart sound present PERIPHERAL PULSES: Peripheral pulses 2+ throughout OTHER: PSM In Mitral Area GI: COMMON NORMALS: Soft to palpation, non-tender and no masses AUSCULTATION: Yes normoactive bowel sounds PALPATION: Yes Soft to palpation RECTAL EXAM: deferred OTHER: Mild abdominal distention. Urinary Catheter Management: Escobar: Cath Placed During This Visit: yes Reason for Continuing Indwelling Catheter: Accurate Measurement of Urinary Output in Critically Ill Patients Urinary Catheter Date of Insertion: 10/07/21 Urinary Catheter Time of Insertion: 00:20 Data : 10/07/21 01:20 10/07/21 01:20 A&P Assessment and plan (1) Bradycardia: Status: Acute (2) Right ventricular dilation: Status: Acute (3) Portal hypertension: Status: Acute (4) Splenomegaly: Status: Acute (5) Ascites: Status: Acute (6) Moderate tricuspid regurgitation: Status: Acute (7) Moderate mitral regurgitation: Status: Acute (8) Pulmonary hypertension: Status: Acute Plan 76-year-old female with past medical history of atrial fibrillation on amiodarone, nonalcoholic liver disease, portal hypertension, moderate pulmonary hypertension, HFpEF , DM, was admitted with chief complaint of generalized weakness as well as chest pain, dizziness, EKG done in the ER showed junctional bradycardia with heart rate in the 30s, and systolic blood pressure in 90s, she received IV atropine with no appropriate response, thereafter she was placed on dopamine drip, Cardiology was consulted for placement of temporary transvenous pacemaker. Assessment: Symptomatic bradycardia with junctional rhythm Pre renal MILA likely HRS 1 lIKELY 2/2 over diuresis at home on recent discharge. Transaminitis Elevated Troponin Likely type II NSTEMI UTI Decompensated Non Alcoholic Liver Disease as evidence by ascites, H.O A.Fib Moderate pulmonary hypertension with right ventricular dilatation and hypokinesia Deconditioning, generalized weakness Anemia Plan : - 2D Echo : Normal left ventricular size and systolic function, EF 80 %.?Moderate left ventricular hypertrophy. Grade III/IV diastolic ?dysfunction (restrictive filling pattern), severely elevated ?filling pressures.?Moderate biatrial enlargement Moderate aortic valve stenosis, ?mean gradient 15.5 mmHg, SWATHI 1.2 cm squared. Moderate eccentric tricuspid regurgitation.? The tricuspid ?annular ring appears intact.? Estimated pulmonary artery peak ?systolic pressure of 39 mmHg(this could be an underestimation ?because of the poor Doppler signals).[id number] pulmonary valve regurgitation. Mild mitral valve regurgitation. -Follow Urine Random sodium and Creatinine -Blood Culture -Urine Culture -S/P Transvenous Temporary Pacemaker Placement. -Stop I.V Diuresis, spironlactone continue gentle I.V Hydration , albumin for 2 days, and possible octeotride. -Monitor I/O Charting -Avoid Nephrotoxics -Monitor BMP -Follow Random Urine Sodium and Creatinine - Continue Levothyroxine - Continue Rocephin -Monitor Electrolytes Family do not want any aggressive Intervention, they have opted out of PPI. DVT prophylaxis: SCDs Attestations Medical Necessity Statement*: Patient needs to be in hospital for the management of MILA. Time Spent in Patient Care: Greater than 35 minutes Critical Care Time: The high probability of a clinically significant, sudden or life threatening deterioration of the patient's [] system(s) required my full and direct attention, intervention and personal management. The critical care time is as shown. This time is in addition to time spent performing any reported procedures but includes the following: [x] Data and vital sign review and interpretation [x] Patient assessment, examination and intervention [x] Documentation [x] Medication orders and management Critical Care Time (min): 45 Coding Level of Care Code Acute Mint Wafer Depositor for Chg Fwd Exam Expanded Problem Focused Diagnoses Bradycardia R00.1 Right ventricular dilation I51.7 Portal hypertension K76.6 Splenomegaly R16.1 Ascites R18.8 Moderate tricuspid regurgitation I07.1 Moderate mitral regurgitation I34.0 Pulmonary hypertension I27.20
--- NOTE | 2021-10-07 13:25 | PC.OT ---
Received orders to complete ROM teaching following a pacemaker placement; however, as this is a temporary pacemaker, will hold at this time.
--- NOTE | 2021-10-07 13:44 | PC.NURSE ---
Patient was readjusting in bed while trying to remain flat. Lost capture on pacemaker, patient's heart rate dropped to the high 30's and low 40's. Nurse turned up MA to 4, achieved capture again, and alerted Dr prado to change. Was advised to keep changes made.
--- NOTE | 2021-10-07 18:21 | PC.NURSE ---
SHift SUmmary: uneventful shift. patient rested in bed throughout the day. Patient's heart rate was paced all day. on 2 occasions the pacemaker didn't capture, associated with patient's movements during a coughing fit. Patient has decided that she does not want to get a pacemaker and wants family present tomorrow. She has informed nurse that she is aware that discontinuing care will likely lead to her passing, and she would like to pass away at home if possible, but also understands that her heart rate drops to the 30's very quickly and she becomes symptomatic.
[2021-10-08] VITALS (28 sets, daily range): BP systolic 112–147; BP diastolic 59–82; PULSE 42–66; RESP 14–30; TEMP 36.6–36.9; O2SAT 90–96
--- NOTE | 2021-10-08 07:00 | PC.NURSE ---
Bedside report completed with Jeremy Jimenez RN
--- NOTE | 2021-10-08 07:14 | PM.PN ---
Subjective Subjective: depressed, weak, BYRNES. dec sob and edema Medications: Reviewed: Yes Medication Review Details: Current Medications Albuterol Sulfate (Albuterol 8 Gm Mdi) 2 puff INHALATION Q4H.RESPIRATORY PRN PRN Reason: SHORTNESS OF BREATH Enoxaparin Sodium (Enoxaparin 30 Mg/0.3 Ml Syringe) 30 mg SUBCUT Q24H SONDAR Dopamine HCl/Dextrose (Intropin Drip) 400 mg in 250 mls @ 8.165 mls/hr IV CONT SONDRA; Protocol Last Infusion: 10/07/21 00:53 Dose: 0 mcg/kg/min, 0 mls/hr Ceftriaxone Sodium 2,000 mg/ (Dextrose) 50 mls @ 100 mls/hr IV Q24H SONDRA; Protocol Last Admin: 10/08/21 05:07 Dose: 100 mls/hr Sodium Chloride (Sodium Chloride 0.9%) 1,000 mls @ 75 mls/hr IV .[id number] SONDRA Last Admin: 10/07/21 21:38 Dose: 75 mls/hr Albumin Human (Albumin) 25 gm in 100 mls @ 60 mls/hr IV Q8H SONDRA Last Admin: 10/08/21 00:40 Dose: 60 mls/hr Levothyroxine Sodium (Levothyroxine 112 Mcg Tablet) 112 mcg PO DAILY [facility] Last Admin: 10/07/21 09:53 Dose: 112 mcg Pantoprazole Sodium (Pantoprazole Dr 40 Mg Tablet) 40 mg PO DAILY [facility] Vitals/I&O/Wt Last Vital Signs Temp 98.4 F 10/08/21 04:00 Pulse 59 L 10/08/21 06:00 Resp 20 H 10/08/21 06:00 BP 134/63 10/08/21 06:00 Pulse Ox 93 10/08/21 06:00 O2 Del Method 10/08/21 04:00 O2 Flow Rate 1 10/07/21 01:00 10/07/21 10/08/21 10/08/21 22:59 06:59 14:59 Intake Total 1147.5 / 2017.5 90 / 2107.5 Output Total 200 / 1400 275 / 1675 Balance 947.5 / 617.5 -185 / 432.5 Weight last 48 hrs Weight 73.981 kg Weight 71.985 kg Weight 73.482 kg Weight 73.482 kg Weight 72.575 kg Physical Exam Narrative: comfortable in bed, NARD vs noted- pulse ox low heent- nc/at neck supple lungs crackles heart irreg, paced abd soft, nt, nd, + bs ext min edema neuro- a,a, o x 3 Urinary Catheter Management: Escobar: Cath Placed During This Visit: yes Reason for Continuing Indwelling Catheter: Accurate Measurement of Urinary Output in Critically Ill Patients Urinary Catheter Date of Insertion: 10/07/21 Urinary Catheter Time of Insertion: 00:20 Data : 10/07/21 01:20 10/07/21 01:20 Micro: Microbiology 10/08/21 05:40 Blood Culture - Preliminary Blood SPECIMEN COLLECTED 10/08/21 05:45 Blood Culture - Preliminary Blood SPECIMEN COLLECTED A&P Assessment and plan (1) Acute kidney injury: see below Status: Acute Plan Plan 76-year-old female with past medical history of atrial fibrillation on amiodarone, nonalcoholic liver disease, portal hypertension, moderate pulmonary hypertension, HFpEF? , DM, was admitted with chief complaint of generalized weakness as well as chest pain, dizziness, EKG done in the ER showed junctional bradycardia with heart rate in the 30s, and systolic blood pressure in 90s, she was treated w/ IV atropine , dopamine drip, and Cardiology was consulted for placement of temporary transvenous pacemaker. 1. Acute kidney injury, nonoliguric, likely prerenal (volume depletion) vs ATN -await repeat chemistries- good uop -low ur na -cont albumin 2. Anemia, recent iron deficiency on september 22- consider IV iron ( ferrlecit) 3. Cirrhosis, right sided heart failure 4. Symptomatic bradycardia s/p temporary pacemaker placement - agree w/ PPM if pt agrees 5. Pyuria, rule-out UTI, culture pending, on rocephin 6. monitor gluc Recommend: gentle IVF hydration. Check urine sodium and Cr, iron studies. hold diuretics Attestations Medical Necessity Statement*: bradycardia w/ TEmp pacemaker Time Spent in Patient Care: 16 - 35 minutes (>than 50% of time spent in counselling and/or direct pt care on unit). Coding Level of Care Code Acute Parts And Service Manager for Antonio Reilly Diagnoses Acute kidney injury N17.9
[2021-10-08] MEDS: enoxaparin 30 mg/0.3 mL Syringe SUBCUT (08:07)
[2021-10-08] MEDS: pantoprazole DR 40 mg Tablet PO (08:07)
[2021-10-08] MEDS: levothyroxine 112 mcg Tablet PO (08:07)
[2021-10-08] MEDS: acetaminophen 325 mg Tablet 650 MG PO (09:21)
[2021-10-08 11:14] LABS: HIV 1 & 2 Antibody Non-Reactive (Non-Reactiv); HIV 1 & 2 Antigen Non-Reactive (Non-Reactiv)
[2021-10-08 11:17] LABS: Folate Level 5.4 ng/mL (4.8-37.3)
[2021-10-08 11:18] LABS: Vitamin B12 821 pg/mL (232-1245)
[2021-10-08 11:20] LABS: Hepatitis A Antibody IgM Non-Reactive (Nonreactive); Hepatitis B Core AB, Total Non-Reactive (Nonreactive); Hepatitis B Surface AB 3.5 (11.5-1000); Hepatitis B Surface Antigen Non-Reactive (Nonreactive); Hepatitis C Virus Antibody Non-Reactive (Nonreactive)
--- NOTE | 2021-10-08 11:49 | PC.OT ---
per discussion with nursing; patient is not going to receive a PPM; will likely go home today. Discharge OT orders.
[2021-10-08 11:54] LABS: Gamma Glutamyl Transferase 159 U/L (5-36)
[2021-10-08] MEDS: FUROsemide 10 mg/mL SDV 4mL 20 MG IVP (12:32)
--- NOTE | 2021-10-08 13:24 | P.DS_ITS ---
Discharge Providers Date of Admission: 10/06/21 22:49 Date of Discharge: October 08, 2021 Attending Provider at Admission: Khloe Huff MD Attending Provider at Discharge: Nomi Boston MD Consults: Cardiology: Dr. Scott Primary Care Provider: Cori Lane MD Diagnoses at Discharge Discharge Diagnosis (1) Symptomatic bradycardia: Status: Acute (2) Acute kidney injury: Status: Acute (3) Chronic atrial fibrillation: Status: Acute (4) Right ventricular dilation: Status: Acute (5) Portal hypertension: Status: Acute (6) Moderate tricuspid regurgitation: Status: Acute (7) Pulmonary hypertension: Status: Acute (8) Ascites: Status: Acute Reason for Visit Reason for Visit: Low Blood Pressure Brief History: History as per HPI: Admitted on 10/06 Dawn Henao is a 76 year old female with past medical history of moderate tricuspid regurgitation, moderate mitral regurgitation, pulmonary hypertension with right ventricular hypokinesia dilated patient, diabetes, atrial fibrillation, diabetes, chronic congestive heart failure with preserved EF presented to the ER today feeling extremely weak and having some slight chest pain.? She described the chest pain as a mild pressure like when she first arrived.? EKG was done showing bradycardia.? No ST or T wave abnormalities.? Heart rate was in the 30s.? Patient was taking amiodarone orally for her atrial fibrillation.? She was recently discharged from the hospital about 2 weeks ago.? Patient was referred to pulmonary hypertension clinic and property site manager when discharged last time however she did not go.? She did not really specify reason of why she has not followed up.? She was seen in ICU bed 2 currently running on dopamine drip.? Heart rate still in the 30s.? Dr. Scott going to take patient to [facility] for placement of transvenous pacemaker. At previous hospital stay she had a stress test and an echo.? Echo showed normal LVEF 55 to 60%, dilated and hypokinetic right ventricle.? Stress test showed patchy areas of persistent decreased tracer uptake in inferior lateral and apical lateral regions suggestive of myocardial scarring versus retraction artifact.? She also had a paracentesis done with removal of 5400 cc of fluid.? Patient was diagnosed with moderate pulmonary hypertension and nonalcoholic liver cirrhosis with portal hypertension, splenomegaly.? She was also FOBT positive but she had recently finished an EGD and colonoscopy at outside hospital.? Patient was referred to property site manager and pulmonary hypertension clinic as an outpatient.? Spironolactone, Bumex, nadolol was added.? Her existing amiodarone dose was reduced to 200 daily.? Secondary to her history of GI bleed she is not a candidate for anticoagulation for her A. fib. ED course: On arrival blood pressure 105/41, respirate 16, pulse of 31, temperature 98.2, saturating 95% on room air.? EKG showed bradycardia with no other ST or T wave abnormalities.? Creatinine 1.8, AST 79, ALT 48, alkaline phosphatase 324, TSH 10.64, hemoglobin 9.8.? Patient was given atropine 0.5x2, normal saline bolus 1 L x 1 and subsequently started on a dopamine drip and transferred to the ICU in a stable condition. Hospital Course Hospital Course Patient was admitted to the hospital at ICU further evaluation and management of symptomatic bradycardia. Rate limiting medications were withheld. At first she was started on dopamine drip cardiology was consulted and transvenous temporary pacemaker was placed for a heart rate of dropping down to 30s. On admission patient was in acute kidney injury secondary to hepatorenal syndrome for which nephrology was consulted. Diuresis was stopped and she was started on gentle IV hydration along with albumin. During hospitalization patient remained temporary pacemaker dependent. Her kidney function remained high but stable. Multiple goals of care discussion were done with patient and patient's family at bedside regarding the need of permanent pacemaker plantation as patient continues to remain pacemaker dependent even 48 to 60 hours post her last dose of nadolol. Given her baseline history of liver dysfunction, hepatorenal syndrome, diastolic heart failure patient stated she does not want to live her life where she was to follow-up with her doctors regularly for liver dysfunction or right-sided heart failure. She states she understands that even with pacemaker right-sided heart failure will not improve and her liver dysfunction will also remain the same. She stated she understands if she does not get a pacemaker she would probably . But she would rather go hospice. Patient's family was agreeable with the same goals of care as per patient. Hospitalist service was arranged. She has been discharged in comfortable state. TPI has been removed. Physical Exam Narrative: General: Alert oriented x3, patient seen laying in bed appearing comfortable at this time, tPA in place HEENT: Normocephalic, atraumatic, EOMI, breathing normally on room air saturating 95% Cardio: Paced, soft ejection systolic murmur present at aortic area, soft S3 gallop Respiratory: Bilateral fine crackles present in lower zone GI: Abdomen soft, nontender, nondistended, bowel sounds + Behavior: Appropriate and cooperative Extremities: Bilateral lower extremity edema 2+ Urinary Catheter Management: Escobar: Cath Placed During This Visit: yes Reason for Continuing Indwelling Catheter: Accurate Measurement of Urinary Output in Critically Ill Patients Urinary Catheter Date of Insertion: 10/07/21 Urinary Catheter Time of Insertion: 00:20 Discharge Data Studies Completed and Pending Completed Studies During Hospitalization Category Date Time Status OBSTETRICAL TECH request for service Routine Exams 10/06/21 23:04 Completed XR chest 1V portable [id number] Stat Exams 10/06/21 18:57 Completed US echo complete [CV. echo complete* [id number]] Urgent Ultrasound 10/07/21 09:14 Completed Pending at discharge Category Date Time Status Albumin Body Fluid Routine Lab 10/07/21 05:52 Ordered Amylase Body Fluid Routine Lab 10/07/21 05:52 Ordered Anaerobic Culture Routine Lab 10/07/21 05:52 Ordered Blood Culture AM LABS Lab 10/08/21 05:40 Results Body Fluid Analysis Routine Lab 10/07/21 05:52 Ordered Body Fluid Culture & GS Routine Lab 10/07/21 05:52 Ordered Body Fluid Specific [place] Routine Lab 10/07/21 05:52 Ordered Cholesterol Body Fluid Routine Lab 10/07/21 05:52 Ordered Complete Blood Count w/Auto AM LABS Lab 10/09/21 04:00 Ordered Comprehensive Metabolic Panel AM LABS Lab 10/09/21 04:00 Ordered Comprehensive Metabolic Panel AM LABS Lab 10/10/21 04:00 Ordered Comprehensive Metabolic Panel AM LABS Lab 10/11/21 04:00 Ordered Cyto Order Verification Routine Lab 10/07/21 05:52 Ordered Fluid Alkaline Phos. Routine Lab 10/07/21 05:52 Ordered Glucose Body Fluid Routine Lab 10/07/21 05:52 Ordered Hemoglobin A1C AM LABS Lab 10/09/21 04:00 Ordered LDH Body Fluid Routine Lab 10/07/21 05:52 Ordered Lipid Profile w/VLDL Routine Lab 10/09/21 04:00 Ordered Magnesium AM LABS Lab 10/09/21 04:00 Ordered Magnesium AM LABS Lab 10/10/21 04:00 Ordered Magnesium AM LABS Lab 10/11/21 04:00 Ordered Mycobacteria, Culture w/Fluor Routine Lab 10/07/21 05:52 Ordered Osmolality Serum Stat Lab 10/06/21 19:05 Received Phosphorus AM LABS Lab 10/09/21 04:00 Ordered Phosphorus AM LABS Lab 10/10/21 04:00 Ordered Phosphorus AM LABS Lab 10/11/21 04:00 Ordered Total Protein Body Fluid Routine Lab 10/07/21 05:52 Ordered Triglycerides Body Fluid Routine Lab 10/07/21 05:52 Ordered Uric Acid Body Fluid Routine Lab 10/07/21 05:52 Ordered Urine Culture Stat Lab 10/07/21 00:15 Results pH Body Fluid Routine Lab 10/07/21 05:52 Ordered Cytology [PTH] Routine Pth 10/07/21 05:52 Ordered Radiology Impressions Chest X-Ray 10/06/21 18:57 IMPRESSION: No acute findings. Laboratory Results WBC 7.0 10^3/uL (4.0-10.0) 10/07/21 01:20 RBC 3.21 10^6/uL (4.1-5.3) L 10/07/21 01:20 Hgb 8.9 g/dL (11.5-15.3) L 10/07/21 01:20 Hct 29.4 % (37.0-47.0) L 10/07/21 01:20 MCV 91.6 fl (81-99) 10/07/21 01:20 MCH 27.7 pg (28.0-34.0) L 10/07/21 01:20 MCHC 30.3 g/dL (30.0-36.0) 10/07/21 01:20 RDW 17.3 % (12.1-15.1) H 10/07/21 01:20 Plt Count 163 10^3/cmm (130-400) 10/07/21 01:20 MPV 11.7 fL (7.4-10.4) H 10/07/21 01:20 Neut % (Auto) 76.8 % 10/07/21 01:20 Lymph % (Auto) 10.3 % 10/07/21 01:20 Grady % (Auto) 11.0 % 10/07/21 01:20 Eos % (Auto) 1.1 % 10/07/21 01:20 Baso % (Auto) 0.4 % 10/07/21 01:20 Neut # (Auto) 5.34 10^3/uL (1.8-7.7) 10/07/21 01:20 Lymph # (Auto) 0.7 10^3/uL (0.8-4.8) L 10/07/21 01:20 Grady # (Auto) 0.8 10^3/uL (0.2-0.9) 10/07/21 01:20 Eos # (Auto) 0.1 10^3/uL (0.0-0.8) 10/07/21 01:20 Baso # (Auto) 0.0 10^3/uL (0.0-0.1) 10/07/21 01:20 Nucleated RBC % (auto) 0 % 10/07/21 01:20 Nucleated RBCs # 0.0 /100WBC 10/07/21 01:20 PT 15.50 SECONDS (12.1-14.9) H 10/07/21 01:20 INR 1.19 (0.8-1.2) 10/07/21 01:20 Sodium 142 mmol/L (136-145) 10/07/21 01:20 Potassium 4.5 mmol/L (3.5-5.1) 10/07/21 01:20 Chloride 105 mmol/L (98-107) 10/07/21 01:20 Carbon Dioxide 25 mmol/L (22-29) 10/07/21 01:20 Anion Gap 16.5 (5-19) 10/07/21 01:20 BUN 49 mg/dL (8-23) H 10/07/21 01:20 Creatinine 1.9 mg/dL (0.5-0.9) H 10/07/21 01:20 GFR Calculation Not Reportable 10/07/21 01:20 Glucose 148 mg/dL (65-115) H 10/07/21 01:20 Calculated Osmolality 310 mOsm/kg (285-295) H 10/07/21 01:20 Lactic Acid 1.4 mmol/L (0.5-2.2) 10/06/21 23:15 Calcium 8.6 mg/dL (8.5-10.5) 10/07/21 01:20 Magnesium 2.4 mg/dL (1.7-2.3) H 10/06/21 19:05 Total Bilirubin 0.7 mg/dL (0.15-1.2) 10/07/21 01:20 GGT 159 U/L (5-36) H 10/08/21 05:40 AST 66 U/L (0-32) H 10/07/21 01:20 ALT 43 U/L (0-33) H 10/07/21 01:20 Alkaline Phosphatase 278 IU/L (35-105) H 10/07/21 01:20 Troponin T Baseline 54 ng/L (0-10) H 10/06/21 19:05 Troponin T 120 Minute 51.46 ng/L (0-10) H 10/06/21 21:20 Delta Troponin T -2.54 ABS# (0-10) L 10/06/21 21:20 Troponin T Hi Sens 6Hr 43.80 ng/L (0-10) H 10/07/21 01:20 Troponin T Hi Sens 6Hr Delta -10.20 ng/L (0-12) L 10/07/21 01:20 NT-Pro-B Natriuret Pep 5424 pg/mL (0-450) H 10/06/21 19:05 Total Protein 5.8 g/dL (6.6-8.7) L 10/07/21 01:20 Albumin 3.2 g/dL (3.5-5.2) L 10/07/21 01:20 Globulin 2.6 g/dL (1.3-4.6) 10/07/21 01:20 Vitamin B12 821 pg/mL (232-1245) 10/08/21 05:40 Folate 5.4 ng/mL (4.8-37.3) 10/08/21 05:40 TSH 10.64 uIU/mL (0.27-4.20) H 10/06/21 19:05 Free T4 1.61 ng/dL (0.82-1.77) 10/06/21 21:20 Urine Color Yellow (Yellow) 10/07/21 00:15 Urine Appearance Sl hazy (CLEAR) 10/07/21 00:15 Urine pH 5 (5-7) 10/07/21 00:15 Ur Specific [place] 1.005 (1.005-1.030) 10/07/21 00:15 Urine Protein Neg (Negative) 10/07/21 00:15 Urine Glucose (UA) Norm (Normal) 10/07/21 00:15 Urine Ketones Negative (Negative) 10/07/21 00:15 Urine Blood Neg (Negative) 10/07/21 00:15 Urine Nitrate Positive (Negative) H 10/07/21 00:15 Urine Bilirubin Neg (Negative) 10/07/21 00:15 Urine Urobilinogen Neg mg/dL (Negative) 10/07/21 00:15 Ur Leukocyte Esterase Negative (Negative) 10/07/21 00:15 Urine RBC 0-4 /hpf (0-2) H 10/07/21 00:15 Urine WBC 5-10 /hpf (0-5) H 10/07/21 00:15 Ur Squamous Epith Cells 5-10 /hpf (0-5) H 10/07/21 00:15 Amorphous Sediment Trace /hpf 10/07/21 00:15 Urine Bacteria 3+ /hpf (NONE) H 10/07/21 00:15 Urine Mucus 2+ /hpf 10/07/21 00:15 U Random Total Protein 18 mg/dL 10/07/21 00:15 Ur Random Sodium 26 mmol/L 10/07/21 10:40 Urine Creatinine 71 mg/dL (28-217) 10/07/21 10:40 Hepatitis A IgM Ab Non-reactive (Nonreactive) 10/08/21 05:40 Hep Bs Antigen Non-reactive (Nonreactive) 10/08/21 05:40 Hep Bs Antibody 3.5 (11.5-1000) L 10/08/21 05:40 Hep B Core Total Ab Non-reactive (Nonreactive) 10/08/21 05:40 Hepatitis C Antibody Non-reactive (Nonreactive) 10/08/21 05:40 HIV 1&2 Ab & HIV 1 Ag Non-reactive (Non-Reactiv) 10/08/21 05:40 HIV 1&2 Antibody Non-reactive (Non-Reactiv) 10/08/21 05:40 Vitals Last Vital Signs Temp 97.8 F 10/08/21 07:30 Pulse 60 10/08/21 12:00 Resp 24 H 10/08/21 12:00 BP 131/73 10/08/21 12:00 Pulse Ox 96 10/08/21 12:00 O2 Del Method 10/08/21 12:00 O2 Flow Rate 2 10/08/21 12:00 Discharge Plan Discharge Patient Disposition: Hospice - Home Condition: Stable Prescriptions: Continued pantoprazole 40 mg tablet,delayed release (DR/EC) 40 mg PO BID albuterol sulfate 90 mcg/actuation aerosol powdr breath activated 2 inh INHALATION Q6H PRN (Reason: Shortness Of Breath) ferrous sulfate 325 mg (65 mg iron) tablet 325 mg PO BID levothyroxine 112 mcg Tablet 112 mcg PO DAILY metformin 500 mg Tablet Extended Release 24 Hr 500 mg PO BID bumetanide 1 mg tablet 1 mg PO DAILY Qty: 60 2RF potassium chloride 20 mEq tablet extended release 10 - 20 meq PO BID PRN (Reason: Edema) Qty: 60 0RF spironolactone 50 mg tablet 25 mg PO DAILY Qty: 30 2RF Discontinued nadolol 20 mg tablet 20 mg PO DAILY 30 Days Qty: 30 0RF amiodarone 400 mg tablet 200 mg PO DAILY Qty: 90 3RF Discharge Orders: Discharge Order (Routine); Ordered 10/08/21 Ordered By: Nomi Boston Referrals: Cori Lane MD [Primary Care Provider] - Patient Instructions: Opioid Safety Discharge Attestations Time Spent in Discharge Care*: critical care time (TPI management, GOC discussions) Critical Care Time (min): 60 Status at Discharge: Cognitive status at discharge: cognitively intact , Behavioral status at discharge: cooperative , Functional status at discharge: other assisted ambulation , Overall status at discharge: patient has a new baseline Quality Metrics Clinical Quality Measures [ No reported AMI, CVA or VTE this stay] Coding Level of Care Code Acute Chg FW DC note Diagnoses Symptomatic bradycardia R00.1 Acute kidney injury N17.9 Chronic atrial fibrillation I48.20 Right ventricular dilation I51.7 Portal hypertension K76.6 Moderate tricuspid regurgitation I07.1 Pulmonary hypertension I27.20 Ascites R18.8
--- NOTE | 2021-10-08 14:42 | PC.NURSE ---
Awaiting confirmation of ambulance arrival time, Then Temp. pacemaker to be removed.
--- NOTE | 2021-10-08 15:25 | PC.NURSE ---
Right groin, temp pacemaker and sheath removed. Pressure held until hemostatis obtained. Pt tolerated well. Heat rate 42 and regular. Family at bedside. Bilat IVs removed intact. Ambulance crew to transport pt home on hospice.
--- NOTE | 2021-10-08 15:25 | PC.NURSE ---
No discharge prescriptions.
--- NOTE | 2021-10-08 18:36 | P.PN_ITS ---
Subjective Subjective: I had a long discussion with the patient and her family. It was decided by the patient and the family not to undergo a permanent pacemaker implantation. They also does not want to pursue the cirrhosis of the liver/portal hypertension/GI bleed. She wants to keep her DNI DNR status Vitals/I&O/Wt Last Vital Signs Temp 97.8 F 10/08/21 07:30 Pulse 42 L 10/08/21 15:20 Resp 18 10/08/21 15:00 BP 121/71 10/08/21 15:20 Pulse Ox 94 10/08/21 15:00 O2 Del Method 10/08/21 15:15 O2 Flow Rate 2 10/08/21 15:15 10/08/21 10/08/21 10/08/21 06:59 14:59 22:59 Intake Total 190 / 2207.5 150 / 150 Output Total 275 / 1675 Balance -85 / 532.5 150 / 150 Weight last 48 hrs Weight 163 lb 1.6 oz Weight 158 lb 11.2 oz Weight 162 lb Weight 162 lb Weight 160 lb Physical Exam Narrative: GENERAL: The patient is alert and oriented times three. Not in any acute distress. HEENT: Moderate pallor, icterus or lymphadenopathy.Oral cavity: There are no mucous membrane lesions. NECK: Trachea appears to be central. No masses noted. No JVD or thyromegaly appreciated. RESPIRATORY: Chest is symmetrical. No intercostals muscle retraction or any accessory muscle activation. There is no chest wall tenderness. Breath sounds are heard bilaterally. No rales or rhonchi heard. No evidence of any consolidation. BREASTS: Deferred. HEART: Systolic murmur grade 3 or 6 in the left sternal border. No diastolic murmurs. Variable first heart sound. Relatively loud S2 ABDOMEN: No vessel pulsations or distention. No tenderness. Hepatosplenomegaly bowel sounds are normally heard. : Deferred. RECTAL: Deferred. LYMPHATIC: No lymphadenopathy noted in the neck. EXTREMITIES: Trace edema with no cyanosis MUSCULOSKELETAL: No acute joint deformities or swelling SKIN: There are no significant rashes or ecchymosis NEUROPSYCHIATRIC: The patient is alert and oriented x3. Appears to be in a good mood. No tremors or rigidity noted. Somewhat anxious Urinary Catheter Management: Escobar: Cath Placed During This Visit: yes Reason for Continuing Indwelling Catheter: Accurate Measurement of Urinary Output in Critically Ill Patients Urinary Catheter Date of Insertion: 10/07/21 Urinary Catheter Time of Insertion: 00:20 Data : 10/07/21 01:20 10/07/21 01:20 Micro: Microbiology 10/07/21 00:15 Urine Culture - Preliminary Urine,Clean Catch Gram Negative Rods 10/08/21 05:40 Blood Culture - Preliminary Blood SPECIMEN COLLECTED 10/08/21 05:45 Blood Culture - Preliminary Blood SPECIMEN COLLECTED A&P Assessment and plan (1) Symptomatic bradycardia: Patient seems to be pacemaker dependent most of the times. Status: Acute (2) Right ventricular dilation: Possibly from the pulmonary hypertension and severe regurgitation in the past. Currently she has at least moderate eccentric TR. Status: Acute (3) Portal hypertension: Patient is known to have nonalcoholic liver cirrhosis. She was scheduled to see a maintenance supervisor at the [facility]. Apparently she refused to go for this Status: Acute (4) Splenomegaly: From the portal hypertension Status: Acute (5) Ascites: patient had a recent paracentesis. Currently seems to have no recurrence of ascites Status: Acute (6) Chronic atrial fibrillation: Patient is not on any oral anticoagulation because of the GI bleed Status: Acute Plan Other problems are Anemia Acute on chronic kidney disease Nonalcoholic cirrhosis of the liver As per patient's and the family's request, we may discontinue the temporary pacer and the venous sheath. Attestations Medical Necessity Statement*: Disposition as per the primary Coding Level of Care Code Acute Fire Technology Instructor for Chg Fwd History Expanded Problem Focused Exam Expanded Problem Focused Medical Decision Making Low Complexity Diagnoses Symptomatic bradycardia R00.1 Right ventricular dilation I51.7 Portal hypertension K76.6 Splenomegaly R16.1 Ascites R18.8 Chronic atrial fibrillation I48.20
[2021-10-09 15:18] LABS: Osmolality Serum 301 mOsm/kg (278-305)
== END 2021-10-08 15:25 | disposition hospice, home (50) | DRG 280 ==
LOC: ER 19:17 → ICU 22:04
PROVIDERS: Internal Medicine; Internal Medicine Cardiovascular Disease; Admitting Provider Internal Medicine; Emergency Provider Emergency Medicine; PCP Family Medicine; Visit Provider Student in an Organized Health Care Education/Training Program
PROC: 5A1223Z Performance of Cardiac Pacing, Continuous (ICD-10-PCS; principal; 2021-10-06 23:20)
DX: R00.1 Bradycardia, unspecified (principal); K76.7 Hepatorenal syndrome; I21.A1 Myocardial infarction type 2; I50.32 Chronic diastolic (congestive) heart failure; K76.6 Portal hypertension; R18.8 Other ascites; N17.9 Acute kidney failure, unspecified; N39.0 Urinary tract infection, site not specified; I48.20 Chronic atrial fibrillation, unspecified; I08.3 Combined rheumatic disorders of mitral, aortic and tricuspid valves; Z95.2 Presence of prosthetic heart valve; K74.69 Other cirrhosis of liver; R16.1 Splenomegaly, not elsewhere classified; E11.22 Type 2 diabetes mellitus with diabetic chronic kidney disease; N18.9 Chronic kidney disease, unspecified; I27.20 Pulmonary hypertension, unspecified; Z87.891 Personal history of nicotine dependence; D50.9 Iron deficiency anemia, unspecified; D63.1 Anemia in chronic kidney disease; B96.20 Unspecified Escherichia coli [E. coli] as the cause of diseases classified elsewhere; Z79.84 Long term (current) use of oral hypoglycemic drugs; Z66 Do not resuscitate; R19.5 Other fecal abnormalities
CPT/HCPCS: 33210; 36415; 51702; 71045; 80053; 81001; 82570; 82575; 82607; 82746; 82977; 83605; 83735; 83880; 83930; 84156; 84300; 84439; 84443; 84484; 85025; 85610; 86705; 86706; 86709; 86803; 87040; 87077; 87086; 87186; 87340; 87806; 93005; 93306; 94664; 94760; 96360; 96365; 96372; 99152; 99153; 99285; C1769; C1779; C1894; C9113; J0461; J0696; J1265; J1644; J1650; J1940; J2250; J3010; J7030; J7040; P9047

== ENCOUNTER 2021-12-27 | Outpatient (CLI) | payer MEDICARE, SELFPAY ==
[2021-12-27 21:30] LABS: Free T4 Free Thyroxine 1.76 ng/dL (0.82-1.77); Thyroid Stimulating Hormone 1.63 uIU/mL (0.27-4.20)
== END 2021-12-27 23:00 | disposition home or self-care (01) ==
PROVIDERS: PCP Family Medicine; Visit Provider Internal Medicine
DX: I11.0 Hypertensive heart disease with heart failure (principal); I50.32 Chronic diastolic (congestive) heart failure
CPT/HCPCS: 84439; 84443

== ENCOUNTER 2024-05-07 15:10 | Outpatient (CLI) | payer MEDICARE, SELFPAY ==
--- NOTE | 2024-05-07 15:16 | XR_ITS ---
WS: [id number] SCREENING DEXA SCAN [facility] CLINICAL INFORMATION: ASYMPTOMATIC MENOPAUSAL STATE COMPARISON: 2021 FINDINGS: The L1-L4 bone mineral density measures 1.357 g/cm2. This corresponds to a T score score of 1.5 and Z score of 3.2. Left femoral neck bone mineral density measures 0.719 g/cm2. This corresponds to a T score of -2.3 and Z score of -0.4. Right femoral neck bone mineral density measures 0.716 g/cm2. This corresponds to a T score -2.3of and Z score of -0.5. Mean femoral neck bone mineral density measures 0.718 g/cm2. This corresponds to a T score of -2.3 and Z score of -0.4. XR/XR DEXA axial skeleton* [id number] IMPRESSION: Normal bone mineralization lumbar spine. Osteopenia femoral necks. Patient's FRAX calculated 10 year probability for major osteoporotic fracture i s 35.0% and osteoporotic hip fracture is 24.3%. Bone mineral density lumbar spine decreased -1.2% Bone mineral density femoral necks decreased -9.7%
== END 2024-05-07 15:11 | disposition home or self-care (01) ==
PROVIDERS: PCP Family Medicine; Visit Provider Family Medicine
DX: Z78.0 Asymptomatic menopausal state (principal); M85.88 Other specified disorders of bone density and structure, other site
CPT/HCPCS: 77080